=== PATIENT | female | born 1945 | race Caucasian/White ===

== ENCOUNTER → 2016-04-30 | Outpatient (CLI) | payer MEDICARE ==
[~2016-04-30] MED LIST: DIAZ5 PO; DIPH2%T PO; DOXA1 PO; GABA600T PO; LISI40TA PO; METO100T PO; NAPR220T95 PO; PROBCAP4 PO; PROT40TA PO; ZOLE5INJ INJ
--- NOTE | 2016-05-06 12:15 | RSPPFT ---
DATE OF PROCEDURE: 04/30/16 COMMENTS: Spirometry shows FVC of 2.2 at 77% of predicted, FEV1 of 1.3 at 63%, FEV1/FVC ratio is decreased. Flow is decreased at FEF 25, FEF 50, FEF 75 and FEF 25-75. There is a mild response after bronchodilator treatment. Lung volumes show residual volume is increased. TLC is normal. Diffusion capacity is mildly decreased. Flow volume loop indicates an obstructive pattern. IMPRESSION: 1. Moderately severe obstructive lung disease. 2. Mild response after bronchodilator treatment. 3. Lung volumes show presence of hyperinflation. 4. Diffusion capacity is mildly decreased.
== END ==
LOC: HRSP 10:37
PROVIDERS: ATTEND Specialist
DX: J44.9 Chronic obstructive pulmonary disease, unspecified (principal)
CPT/HCPCS: 94060; 94726; 94729

== ENCOUNTER 2016-08-22 17:17 | Inpatient (IN) | payer MEDICARE ==
[~2016-08-22] VITALS: Ht 166.4 cm; Wt 55.5 kg
[2016-08-22 17:20] VITALS: BP 178/114; PULSE 130; RESP 18; TEMP 97.8; O2SAT 97
[2016-08-22] MEDS ORDERED: ALEV220T14 PO (18:15)
[2016-08-22] MEDS ORDERED: DOXA1TAB35 PO (18:15)
[2016-08-22] MEDS ORDERED: METO100T PO (18:15)
[2016-08-22] MEDS ORDERED: UMEC1INH INH (18:15)
[2016-08-22] MEDS ORDERED: LISI40TA PO (18:15)
[2016-08-22] MEDS ORDERED: SODIUM CHLORIDE 0.9% FLUSH 10 ML FLUSH IVF PRN ×2 (18:15→18:30)
[2016-08-22] MEDS ORDERED: ZOLE5INJ IV (18:15)
[2016-08-22] MEDS ORDERED: LACTCAP8 PO (18:15)
[2016-08-22] MEDS ORDERED: GABA600T PO (18:15)
[2016-08-22] MEDS ORDERED: PROT40TA PO (18:15)
[2016-08-22 18:25] VITALS: BP 161/86; PULSE 82; RESP 20; O2SAT 98
--- NOTE | 2016-08-22 18:26 | PD ---
HPI Chief Complaint: Cardiac Complaint Time Seen by Provider: 18:18 Travel History International Travel<30 days: No Contact w/Intl Traveler<30days: No Traveled to known affect area: No History of Present Illness HPI 70-year-old female with history of Hypertension, mitral valve prolapse, presents to the ER today sent in by her physician because they have noted that her heart rate was fairly elevated. Patient denies any chest pains, shortness of breath, dizziness, or any other symptoms. There is concern of a new onset A. fib. Modifying Factors: None Associated Signs & Symptoms: Elevated heart rate Risk Factors: Hypertension PFSH Past Medical History Arthritis: Yes Heart Rhythm Problems: Yes (MVP) Cancer: Yes ( LEFT BREAST 2001) Cardiovascular Problems: Yes (MVP) High Cholesterol: Yes Chemotherapy: No Chest Pain: No Congestive Heart Failure: No Cerebrovascular Accident: No Diabetes: No Diminished Hearing: No Endocrine: No Gastrointestinal Disorders: Yes GERD: Yes Genitourinary: No Headaches: Yes Hepatitis: No Hiatal Hernia: No Hypertension: Yes Immune Disorder: No Implanted Vascular Access Dvce: Yes Medical other: Yes (GERD) Musculoskeletal: Yes 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) Psychiatric: No Reproductive: No Respiratory: No Migraines: Yes Pneumonia: Yes Radiation Therapy: Yes Seizures: No Thyroid Disease: No Ulcer: No ?: Not Past Surgical History Abdominal Surgery: Yes AICD: No Appendectomy: Yes Arteriovenous Shunt: No Body Medical Devices: SPINCAL CORD IMPLANT Cardiac Surgery: No Ear Surgery: No Endocrine Surgery: No Eye Surgery: No Genitourinary Surgery: No Gynecologic Surgery: Yes Hysterectomy: Yes Insulin Pump: No Joint Replacement: No Neurologic Surgery: Yes (SPINAL CORD IMPLANT STIMULATOR) Oral Surgery: Yes (TMJ X 2, TEETH IMPLANTS) Pacemaker: No Thoracic Surgery: Yes (left breast lumpectomy) Other Surgery: Yes (breast cancer 2001) Social History Alcohol Use: Yes (OCCAS) Tobacco Use: No Substance Use: No Allergies-Medications (Allergen,Severity, Reaction): Coded Allergies: Levaquin (Verified Allergy, Severe, Joint Pain, 11/05/15) Simvastatin (Verified Allergy, Severe, 11/05/15) Penicillin (Verified Allergy, Unknown, 11/05/15) Darvon (Verified Adverse Reaction, Mild, Nausea/Vomiting, 11/05/15) Erythromycin (Verified Adverse Reaction, Mild, UPSET STOMACH, 11/05/15) Reported Meds & Prescriptions Reported Meds & Active Scripts Active Reported Zoledronic Acid Inj (Zoledronic Acid) 5 Mg/100 Ml Inj 5 Mg IV Q365D Incruse Ellipta Inh (Umeclidinium Dailey Inh) 0.0625 Mg/Act Inh 62.5 Mcg INH DAILY Probiotic (Lactobacillus Acidophilus) 1 Cap Cap 1 Cap PO DAILY Protonix (Pantoprazole Sodium) 40 Mg Tab 40 Mg PO DAILY Aleve Arthritis (Naproxen Sodium) 220 Mg Tab 220 Mg PO BID Metoprolol Tartrate 100 Mg Tab 100 Mg PO BID Lisinopril 40 Mg Tab 40 Mg PO DAILY Gabapentin 600 Mg Tab 600 Mg PO BID Doxazosin (Doxazosin Mesylate) 2 Mg Tab 2 Mg PO DAILY Review of Systems Except as stated in HPI: all other systems reviewed are Neg Physical Exam Narrative GENERAL: Well-developed elderly white female patient currently in no acute distress. Awake and oriented 3. SKIN: Focused skin assessment warm/dry. HEAD: Atraumatic. Normocephalic. EYES: Pupils equal and round. No scleral icterus. No injection or drainage. ENT: No nasal bleeding or discharge. Mucous membranes pink and moist. NECK: Trachea midline. No JVD. CARDIOVASCULAR: Fast and irregularly irregular. RESPIRATORY: No accessory muscle use. Clear to auscultation. Breath sounds equal bilaterally. GASTROINTESTINAL: Abdomen soft, non-tender, nondistended. Hepatic and splenic margins not palpable. MUSCULOSKELETAL: No obvious deformities. No clubbing. No cyanosis. No edema. NEUROLOGICAL: Awake and alert. No obvious cranial nerve deficits. Motor grossly within normal limits. Normal speech. PSYCHIATRIC: Appropriate mood and affect; insight and judgment normal. Data Data Last Documented VS Vital Signs Date Time Temp Pulse Resp B/P Pulse Ox O2 Delivery O2 Flow Rate FiO2 08/22/16 18:33 72 20 136/83 08/22/16 18:25 Nasal Cannula 2 08/22/16 18:25 98 08/22/16 17:20 97.8 Orders Electrocardiogram (08/22/16 ) Electrocardiogram (08/22/16 18:14) Ckmb (Isoenzyme) Profile (08/22/16 18:14) Complete Blood Count With Diff (08/22/16 18:14) Comprehensive Metabolic Panel (08/22/16 18:14) D-Dimer (08/22/16 18:14) Magnesium (Mg) (08/22/16 18:14) Prothrombin Time / Inr (Pt) (08/22/16 18:14) Act Partial Throm Time (Ptt) (08/22/16 18:14) Troponin I (08/22/16 18:14) Chest, Single Ap (08/22/16 18:14) Ecg Monitoring (08/22/16 18:14) Bilateral Bp Monitoring (08/22/16 18:14) Iv Access Insert/Monitor (08/22/16 18:14) Oximetry (08/22/16 18:14) Oxygen Administration (08/22/16 18:14) Sodium Chloride 0.9% Flush (Ns Flush) (08/22/16 18:15) Blood Pressure (08/22/16 18:18) Vital Signs (08/22/16 18:18) Diltiazem Inj (Cardizem Inj) (08/22/16 18:30) Sodium Chloride 0.9% Flush (Ns Flush) (08/22/16 18:30) MDM Medical Decision Making Medical Screen Exam Complete: Yes Emergency Medical Condition: Yes Medical Record Reviewed: Yes Interpretation(s) EKG shows A. fib with RVR at a rate of 120 bpm. No signs of acute ST-T elevations or depressions. Differential Diagnosis Fast heart rate, new onset A. fibrule out metabolic abnormalities Narrative Course EKG shows A. fib, new onset with rate of 120 bpm. Cardizem initiated for rate control. Physician Communication Physician Communication Case is signed out to Dr. Clemons at 7 PM pending workup. Diagnosis Primary Impression: New onset a-fib Admitting Information Admitting Physician Requests: Admit Moisés Cruz MD Aug 22, 2016 18:26
[2016-08-22] MEDS ORDERED: DILTIAZEM HCL 25 MG/5 ML VIAL IV PUSH ONE (18:30)
[2016-08-22 18:33] VITALS: BP 136/83; PULSE 72; RESP 20
--- NOTE | 2016-08-22 18:49 | RADRPT ---
EXAM DATE/TIME: 08/22/2016 18:21 [facility] COMPARISON: No previous studies available for comparison. INDICATIONS : Chest discomfort, irregular heart rate starting today MEDICAL HISTORY : None. SURGICAL HISTORY : Spinal stimulator ENCOUNTER: Initial ACUITY: 1 day PAIN SCORE: 0/10 LOCATION: Bilateral chest FINDINGS: No infiltrate, effusion or pneumothorax. Mild increased density of the right second and third ribs ag ain noted likely related to old fractures. These are unchanged. Heart size stable, within normal limits. The thoracic aorta is mildly tortuous. Spinal stimulator mayra ds are present. CONCLUSION: No evidence of acute cardiopulmonary disease. Amrit Alvarez MD on August 22, 2016 at 18:46 Board Certified Radiologist. This report was verified electronically.
[2016-08-22 19:17] LABS: AUTOMATED NEUTROPHIL # 6.6 TH/MM3 (1.8-7.7); BASOPHIL % 0.1 % (0.0-2.0); EOSINOPHIL % 0.2 % (0.0-4.0); HEMATOCRIT 34.7 % (35.0-46.0); HEMO FLAGS DIFF FINAL; LYMPH % 4.5 % (9.0-44.0); LYMPHOCYTE # 0.4 TH/MM3 (1.0-4.8); MEAN CELL VOLUME 104.1 FL (80.0-100.0); MEAN CORPUSCULAR HEMOGLOBIN 35.9 PG (27.0-34.0); MEAN CORPUSCULAR HGB CONC 34.5 % (32.0-36.0); MONO % 10.5 % (0.0-8.0); NEUT % 84.7 % (16.0-70.0); PLATELET COUNT 303 TH/MM3 (150-450); RED BLOOD COUNT 3.34 MIL/MM3 (4.00-5.30); RED CELL DISTRIBUTION WIDTH 12.9 % (11.6-17.2); WHITE BLOOD COUNT 7.8 TH/MM3 (4.0-11.0)
[2016-08-22 19:23] VITALS: BP 187/88; PULSE 76; RESP 18; O2SAT 100
--- NOTE | 2016-08-22 19:32 | PD ---
Data Data Last Documented VS Vital Signs Date Time Temp Pulse Resp B/P Pulse Ox O2 Delivery O2 Flow Rate FiO2 08/22/16 19:23 76 18 187/88 100 Room Air 08/22/16 18:25 2 08/22/16 17:20 97.8 Orders Electrocardiogram (08/22/16 ) Electrocardiogram (08/22/16 18:14) Ckmb (Isoenzyme) Profile (08/22/16 18:14) Complete Blood Count With Diff (08/22/16 18:14) Comprehensive Metabolic Panel (08/22/16 18:14) D-Dimer (08/22/16 18:14) Magnesium (Mg) (08/22/16 18:14) Prothrombin Time / Inr (Pt) (08/22/16 18:14) Act Partial Throm Time (Ptt) (08/22/16 18:14) Troponin I (08/22/16 18:14) Chest, Single Ap (08/22/16 18:14) Ecg Monitoring (08/22/16 18:14) Bilateral Bp Monitoring (08/22/16 18:14) Iv Access Insert/Monitor (08/22/16 18:14) Oximetry (08/22/16 18:14) Oxygen Administration (08/22/16 18:14) Sodium Chloride 0.9% Flush (Ns Flush) (08/22/16 18:15) Blood Pressure (08/22/16 18:18) Vital Signs (08/22/16 18:18) Diltiazem Inj (Cardizem Inj) (08/22/16 18:30) Sodium Chloride 0.9% Flush (Ns Flush) (08/22/16 18:30) Electrocardiogram (08/22/16 ) CKMB (08/22/16 18:15) CKMB% (08/22/16 18:15) Labs Laboratory Tests Test 08/22/16 18:15 White Blood Count 7.8 TH/MM3 Red Blood Count 3.34 MIL/MM3 Hemoglobin 12.0 GM/DL Hematocrit 34.7 % Mean Corpuscular Volume 104.1 FL Mean Corpuscular Hemoglobin 35.9 PG Mean Corpuscular Hemoglobin 34.5 % Concent Red Cell Distribution Width 12.9 % Platelet Count 303 TH/MM3 Mean Platelet Volume 7.7 FL Neutrophils (%) (Auto) 84.7 % Lymphocytes (%) (Auto) 4.5 % Monocytes (%) (Auto) 10.5 % Eosinophils (%) (Auto) 0.2 % Basophils (%) (Auto) 0.1 % Neutrophils # (Auto) 6.6 TH/MM3 Lymphocytes # (Auto) 0.4 TH/MM3 Monocytes # (Auto) 0.8 TH/MM3 Eosinophils # (Auto) 0.0 TH/MM3 Basophils # (Auto) 0.0 TH/MM3 CBC Comment DIFF FINAL Differential Comment Prothrombin Time 10.1 SEC Prothromb Time International 0.9 RATIO Ratio Activated Partial 25.0 SEC Thromboplast Time D-Dimer Quantitative (PE/DVT) 0.42 MG/L FEU Sodium Level 121 MEQ/L Potassium Level 3.8 MEQ/L Chloride Level 87 MEQ/L Carbon Dioxide Level 24.3 MEQ/L Anion Gap 10 MEQ/L Blood Urea Nitrogen 23 MG/DL Creatinine 0.92 MG/DL Estimat Glomerular Filtration 61 ML/MIN Rate Random Glucose 108 MG/DL Calcium Level 8.8 MG/DL Magnesium Level 1.9 MG/DL Total Bilirubin 0.9 MG/DL Aspartate Amino Transf 24 U/L (AST/SGOT) Alanine Aminotransferase 33 U/L (ALT/SGPT) Alkaline Phosphatase 67 U/L Total Creatine Kinase 162 U/L Troponin I 0.02 NG/ML Total Protein 6.8 GM/DL Albumin 4.0 GM/DL [facility] Supervised Visit with HEBER: No Narrative Course Patient signed out to me by previous provider. Please see associated no for further details. In short patient is a 70-year-old female with history of HTN, MVP here because she had incidental onset of new onset A. fib RVR while noted by her PCP. Patient apparently has not had any chest pain, shortness of breath or lightheadedness but given her RVR was sent to the emergency department for evaluation. Patient arrived with A. fib with RVR in the 120s. Blood pressure elevated in the 170s but normalized upon recheck. I note to me pending laboratory results and heart rate control. Patient was given 15 mg diltiazem IV push by previous provider. Chest x-ray was unremarkable. CBC, CMP, magnesium, d-dimer, CK-MB, troponin, coags notable for sodium of 121. Otherwise unremarkable. Patient is not on any diuretics that would cause her hyponatremia, chest x-ray is unremarkable without any mass. Given her severe hyponatremia will admit for further evaluation. After diltiazem, patient's heart rate was in the 70s to 80s. An EKG was repeated and patient does remain in A. fib but now rate controlled. Diagnosis Primary Impression: New onset a-fib Additional Impressions: Atrial fibrillation with RVR Hyponatremia Admitting Information Admitting Physician Requests: Admit Yaz Garcia MD Aug 22, 2016 19:32
[2016-08-22 19:46] LABS: INTERNATIONAL NORMALIZED RATIO 0.9 RATIO; PROTHROMBIN TIME - PATIENT 10.1 SEC (9.8-11.6)
[2016-08-22 19:48] LABS: ALKALINE PHOSPHATASE 67 U/L (45-117); ALT (GPT) 33 U/L (10-53); ANION GAP 10 MEQ/L (5-15); AST (GOT) 24 U/L (15-37); BICARBONATE 24.3 MEQ/L (21.0-32.0); BLOOD UREA NITROGEN 23 MG/DL (7-18); CHLORIDE 87 MEQ/L (98-107); CREATINE KINASE 162 U/L (26-192); GLOMERULAR FILTRATION RATE 61 ML/MIN (>89); MAGNESIUM 1.9 MG/DL (1.5-2.5); POTASSIUM 3.8 MEQ/L (3.5-5.1); TOTAL BILIRUBIN ADULT 0.9 MG/DL (0.2-1.0)
[2016-08-22 20:03] LABS: SODIUM (NA) 121 MEQ/L (136-145)
[2016-08-22 20:21] LABS: CKMB 11.6 NG/ML (0.5-3.6)
[2016-08-22 21:40] VITALS: BP 168/110; PULSE 86; RESP 16; TEMP 97.9; O2SAT 100
--- NOTE | 2016-08-22 21:44 | HHI.HP ---
HPI Service CP Hospitalists Primary Care Physician Keyla Meadows MD Admission Diagnosis severe hyponatremia, new onset A. fib with RVR Chief Complaint: new onset atrail fib,hyponatremia Travel History International Travel<30 Days: No Contact w/Intl Traveler <30 Da: No Traveled to Known Affected Are: No History of Present Illness 70 y/o white female with remote history breast cancer and difficult to control hypertension who was at pain clinic and was found to have high heart rate ,ekg was done and showed rapid atrial fib ,PCP instructed patient to come to hospital ,denies any symptoms but told me they took BP readings and BP was low for her. In er given IV cardiazem bolus with improvement in heart rate on lab work found to have low sodium will admit for further evaluation. Review of Systems Cardiovascular: COMPLAINS OF: Palpitations Past Family Social History Past Medical History Heart Rhythm Problems: Yes (MVP) Cancer: Yes ( LEFT BREAST 2001) Cardiovascular Problems: Yes (MVP) High Cholesterol: Yes Chemotherapy: No Chest Pain: No Congestive Heart Failure: No Cerebrovascular Accident: No Diabetes: No Diminished Hearing: No Endocrine: No Gastrointestinal Disorders: Yes GERD: Yes Genitourinary: No Headaches: Yes Hepatitis: No Hiatal Hernia: No Hypertension: Yes Immune Disorder: No Implanted Vascular Access Dvce: Yes Medical other: Yes (GERD) Musculoskeletal: Yes 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) Psychiatric: No Reproductive: No Respiratory: No Migraines: Yes Pneumonia: Yes Radiation Therap Past Surgical History Abdominal Surgery: Yes AICD: No Appendectomy: Yes Arteriovenous Shunt: No Body Medical Devices: SPINCAL CORD IMPLANT Cardiac Surgery: No Ear Surgery: No Endocrine Surgery: No Eye Surgery: No Genitourinary Surgery: No Gynecologic Surgery: Yes Hysterectomy: Yes Insulin Pump: No Joint Replacement: No Neurologic Surgery: Yes (SPINAL CORD IMPLANT STIMULATOR) Oral Surgery: Yes (TMJ X 2, TEETH IMPLANTS) Pacemaker: No Thoracic Surgery: Yes (left breast lumpectomy) Other Surgery: Yes (breast cancer 2001) Reported Medications Zoledronic Acid Inj (Zoledronic Acid) 5 Mg/100 Ml Inj 5 Mg IV Q365D Incruse Ellipta Inh (Umeclidinium Tavares Inh) 0.0625 Mg/Act Inh 62.5 Mcg INH DAILY Probiotic (Lactobacillus Acidophilus) 1 Cap Cap 1 Cap PO DAILY Protonix (Pantoprazole Sodium) 40 Mg Tab 40 Mg PO DAILY Aleve Arthritis (Naproxen Sodium) 220 Mg Tab 220 Mg PO BID Metoprolol Tartrate 100 Mg Tab 100 Mg PO BID Lisinopril 40 Mg Tab 40 Mg PO DAILY Gabapentin 600 Mg Tab 600 Mg PO BID Doxazosin (Doxazosin Mesylate) 2 Mg Tab 2 Mg PO DAILY Allergies: Coded Allergies: Levaquin (Verified Allergy, Severe, Joint Pain, 11/05/15) Simvastatin (Verified Allergy, Severe, 11/05/15) Penicillin (Verified Allergy, Unknown, 11/05/15) Darvon (Verified Adverse Reaction, Mild, Nausea/Vomiting, 11/05/15) Erythromycin (Verified Adverse Reaction, Mild, UPSET STOMACH, 11/05/15) Social History NS,ND Physical Exam Vital Signs Vital Signs Date Time Temp Pulse Resp B/P Pulse Ox O2 Delivery O2 Flow Rate FiO2 08/22/16 19:23 76 18 187/88 100 Room Air 08/22/16 18:33 72 20 136/83 08/22/16 18:25 Nasal Cannula 2 08/22/16 18:25 82 20 161/86 98 08/22/16 17:20 97.8 130 18 178/114 97 Room Air Physical Exam GENERAL: This is a well-nourished, well-developed patient, in no apparent distress. SKIN: No rashes, ecchymoses or lesions. Cool and dry. HEAD: Atraumatic. Normocephalic. No temporal or scalp tenderness. EYES: Pupils equal round and reactive. Extraocular motions intact. No scleral icterus. No injection or drainage. ENT: Nose without bleeding, purulent drainage or septal hematoma. Throat without erythema, tonsillar hypertrophy or exudate. Uvula midline. Airway patent. NECK: Trachea midline. No JVD or lymphadenopathy. Supple, nontender, no meningeal signs. CARDIOVASCULAR: Regular rate and rhythm without murmurs, gallops, or rubs. RESPIRATORY: Clear to auscultation. Breath sounds equal bilaterally. No wheezes , rales, or rhonchi. GASTROINTESTINAL: Abdomen soft, non-tender, nondistended. No hepato-splenomegaly , or palpable masses. No guarding. MUSCULOSKELETAL: Extremities without clubbing, cyanosis, or edema. No joint tenderness, effusion, or edema noted. No calf tenderness. Negative Homans sign bilaterally. NEUROLOGICAL: Awake and alert. Cranial nerves II through XII intact. Motor and sensory grossly within normal limits. Five out of 5 muscle strength in all muscle groups. Normal speech. Laboratory Laboratory Tests Test 08/22/16 18:15 White Blood Count 7.8 Red Blood Count 3.34 Hemoglobin 12.0 Hematocrit 34.7 Mean Corpuscular Volume 104.1 Mean Corpuscular Hemoglobin 35.9 Mean Corpuscular Hemoglobin 34.5 Concent Red Cell Distribution Width 12.9 Platelet Count 303 Mean Platelet Volume 7.7 Neutrophils (%) (Auto) 84.7 Lymphocytes (%) (Auto) 4.5 Monocytes (%) (Auto) 10.5 Eosinophils (%) (Auto) 0.2 Basophils (%) (Auto) 0.1 Neutrophils # (Auto) 6.6 Lymphocytes # (Auto) 0.4 Monocytes # (Auto) 0.8 Eosinophils # (Auto) 0.0 Basophils # (Auto) 0.0 CBC Comment DIFF FINAL Differential Comment Prothrombin Time 10.1 Prothromb Time International 0.9 Ratio Activated Partial 25.0 Thromboplast Time D-Dimer Quantitative (PE/DVT) 0.42 Sodium Level 121 Potassium Level 3.8 Chloride Level 87 Carbon Dioxide Level 24.3 Anion Gap 10 Blood Urea Nitrogen 23 Creatinine 0.92 Estimat Glomerular Filtration 61 Rate Random Glucose 108 Calcium Level 8.8 Magnesium Level 1.9 Total Bilirubin 0.9 Aspartate Amino Transf 24 (AST/SGOT) Alanine Aminotransferase 33 (ALT/SGPT) Alkaline Phosphatase 67 Total Creatine Kinase 162 Creatine Kinase MB 11.6 Troponin I 0.02 Total Protein 6.8 Albumin 4.0 Result Diagram: 08/22/165 08/22/161814 Imaging Last 24 hours Impressions Chest X-Ray 08/22/161813 Signed Impressions: Service Date/Time: Monday, August 22, 2016 18:21 - CONCLUSION: No evidence of acute cardiopulmonary disease. Amrit Alvarez MD Course in er given iv cardiazem Assessment and Plan Problem List: (1) New onset a-fib Status: Acute Plan: heart rate improved will continue to monitor obtain 2d echo cardiac evaluation continue metoprolol (2) Hyponatremia Status: Acute Plan: will recheck no symptoms no evidence dehydration will need to review old records to see previous sodium levels will hold on any IV fluid as patient has hypertension Assessment and Plan further plan as case develops Code Status full Discussed Condition With patient Physician Certification 2 Midnight Certification Type: Admission for Inpatient Services Order for Inpatient Services The services are ordered in accordance with Medicare regulations or non- Medicare payer requirements, as applicable. In the case of services not specified as inpatient-only, they are appropriately provided as inpatient services in accordance with the 2-midnight benchmark. Estimated LOS (days): 3 3 days is the estimated time the patient will need to remain in the hospital, assuming treatment plan goals are met and no additional complications. Post-Hospital Plan: Not yet determined [place] Aguirre MD Aug 22, 2016 21:44
[2016-08-22] MEDS ORDERED: BISACODYL 10 MG SUPP RECTAL PRN (21:45)
[2016-08-22] MEDS ORDERED: LACTULOSE SYRUP 20 GM/30 ML CUP PO PRN (21:45)
[2016-08-22] MEDS ORDERED: SENNOSIDES 8.6 MG TAB PO PRN (21:45)
[2016-08-22] MEDS ORDERED: NALOXONE HCL 0.4 MG/ML AMP IV PRN (21:45)
[2016-08-22] MEDS ORDERED: MAGNESIUM HYDROXIDE SUSP 30 ML CUP PO PRN (21:45)
[2016-08-22] MEDS ORDERED: SODIUM CHLORIDE 0.9% FLUSH 10 ML FLUSH IV FLUSH PRN (21:45)
[2016-08-22 22:00] VITALS: PULSE 86
[2016-08-22] MEDS ORDERED: ENOXAPARIN SODIUM 40 MG/0.4 ML SYRINGE SQ SCH (22:00)
[2016-08-23] VITALS (12 sets, daily range): BP systolic 100–174; BP diastolic 59–110; PULSE 88–150; RESP 16–22; TEMP 97.4–98.1; O2SAT 94–100
[2016-08-23] MEDS ORDERED: cloNIDine HCL 0.1 MG TAB PO PRN (00:45)
[2016-08-23 06:34] LABS: BICARBONATE 23.4 MEQ/L (21.0-32.0)
[2016-08-23] MEDS: DOCUSATE SODIUM 50 MG/SENNA 8.6 MG TAB PO SCH ×2 (08:12→21:00)
[2016-08-23] MEDS: GABAPENTIN 300 MG CAP PO SCH ×2 (08:12→21:37)
[2016-08-23] MEDS: LACTOBACILLUS ACIDOPHILUS TAB PO SCH (08:13)
[2016-08-23] MEDS: METOPROLOL TARTRATE 100 MG TAB PO SCH ×2 (08:13→21:37)
[2016-08-23] MEDS: SODIUM CHLORIDE 0.9% FLUSH 10 ML FLUSH IV FLUSH SCH ×2 (08:20→21:00)
[2016-08-23] MEDS ORDERED: LISINOPRIL 20 MG TAB PO SCH (09:00)
[2016-08-23] MEDS ORDERED: DILTIAZEM INJ 125 MG in SODIUM CHLORIDE 0.9% INJ 100 ML IV PRN (09:00)
[2016-08-23] MEDS ORDERED: INCRUSE ELLIPTA INH SCH (09:00)
[2016-08-23] MEDS ORDERED: DOXAZOSIN MESYLATE 2 MG TAB PO SCH (09:00)
--- NOTE | 2016-08-23 10:21 | HHI.PR ---
Subjective Remarks feels ok. no cp or sob Objective Vitals heart irreg lung cta abd s/nt ext no edema Vital Signs Date Time Temp Pulse Resp B/P Pulse Ox O2 Delivery O2 Flow Rate FiO2 08/23/16 04:00 97.4 90 20 149/69 97 08/23/16 00:00 98.1 110 16 160/110 99 08/22/16 22:46 Room Air 08/22/16 22:00 86 08/22/16 21:40 97.9 86 16 168/110 100 08/22/16 19:23 76 18 187/88 100 Room Air 08/22/16 18:33 72 20 136/83 08/22/16 18:25 Nasal Cannula 2 08/22/16 18:25 82 20 161/86 98 08/22/16 17:20 97.8 130 18 178/114 97 Room Air 08/22/16 08/22/16 08/23/16 15:00 23:00 07:00 Intake Total 580 ml Balance 580 ml Intake Oral 580 ml # Voids 1 2 # Bowel Movements 0 Result Diagram: 08/22/16 1815 08/23/16 0430 Imaging Last 24 hours Impressions Chest X-Ray 08/22/16 1814 Signed Impressions: Service Date/Time: Monday, August 22, 2016 18:21 - CONCLUSION: No evidence of acute cardiopulmonary disease. Amrit Alvarez MD A/P Problem List: (1) New onset a-fib Status: Acute Plan: Pt has longstanding htn recently diagnosed with copd. says her fev1 was 45 and improved with rx to 60s Was at pain clinic where she gets ELIF for Spinal stenosis new onset afib/rvr hyponatremia noted her home dose lopressor was resumed at 100mg po bid still breaking through this morning prn cardizem gtt ordered cardiology consult was ordered and will await reccs as we will likely need to overhaul her med list for htn/afib i discussed her risk factors with her and anticoagulation echo pending tsh check urine na, urine osmol, serum osmols. recheck serum na (2) Hyponatremia Status: Acute Plan: above (3) COPD (chronic obstructive pulmonary disease) Status: Chronic Plan: cont home inhalers (4) Spinal stenosis Status: Chronic (5) HTN (hypertension) Status: Chronic Billy Hough MD Aug 23, 2016 10:21
[2016-08-23] MEDS ORDERED: SODIUM CHLOR 0.9% 1000 ML INJ 1,000 ML IV SCH (11:00)
[2016-08-23] MEDS: DILTIAZEM HCL 30 MG TAB PO SCH ×3 (13:07→21:37)
--- NOTE | 2016-08-23 13:35 | EKG ---
Date Performed: 08/22/2016 Time Performed: 19:43:54 PTAGE: 70 years EKG: ATRIAL FIBRILLATION Compared to previous tracing, ventricular response to the atrial fibril lation is slower ABNORMAL RHYTHM ECG PREVIOUS TRACING : 08/22/2016 17.32 DOCTOR: Andres Whitehead Interpretating Date/Time 08/23/2016 13:34:28
--- NOTE | 2016-08-23 13:35 | EKG ---
Date Performed: 08/22/2016 Time Performed: 17:32:29 PTAGE: 70 years EKG: ATRIAL FIBRILLATION WITH RAPID VENTRICULAR RESPONSE NONSPECIFIC ST & T-WAVE ABNORMALITY Com pared to previous tracing, the atrial fibrillation with rapid ventricular response has replaced Sinus rhythm . Nonspecific ST changes are new. ABNORMAL RHYTHM ECG PREVIOUS TRACING : 02/09/2012 10.13 DOCTOR: Andres Whitehead Interpretating Date/Time 08/23/2016 13:34:19
--- NOTE | 2016-08-23 15:23 | MB ---
cc: JORDANA ARMENDARIZ MD DATE OF CONSULTATION: 08/23/2016. REASON FOR CONSULTATION: New onset atrial fibrillation. HISTORY OF PRESENT ILLNESS The patient is a very pleasant 70-year-old woman with no prior cardiac history who was sent from her primary care physician's office for tachycardia. She was found to be in an essentially asymptomatic rapid atrial fibrillation. She was admitted, started on the Cardizem drip, and I was consulted for workup. Currently the patient is asymptomatic denying chest pain, shortness of breath, lightheadedness, dizziness, palpitations. She does get occasional headaches when her blood pressure is low. PAST MEDICAL HISTORY: 1. Breast cancer. 2. Remote history of ventricular tachycardia in the early per patient, details unclear. 3. Remote history of mitral valve prolapse, details unclear. 4. Hypertension. CURRENT MEDICATIONS: 1. Cardura. 2. Neurontin 7 milligrams twice a day. 3. Lopressor 100 milligrams twice a day. 4. Prinivil 40 milligrams daily. ALLERGIES: 1. DARVON. 2. ERYTHROMYCIN. 3. LEVAQUIN. 4. PENICILLIN. 5. SIMVASTATIN. PHYSICAL EXAMINATION: VITAL SIGNS: Afebrile, pulse 88, respiratory rate 20, blood pressure 164/100 satting 99% on room air. GENERAL: A pleasant well-appearing woman in no distress. NECK: No jugular venous distention. LUNGS: Clear to auscultation bilaterally. CARDIOVASCULAR: Irregularly irregular rhythm with a mildly rapid rate. No significant murmurs appreciated. ABDOMEN: Benign. EXTREMITIES: No edema. LABORATORY DATA: Sodium 126 up from 121, potassium 4.0, chloride 92, bicarb 23.4, BUN 20, creatinine 0.81, glucose 106. Troponin is negative x1. EKGS: EKG shows atrial fibrillation at rate of 85 with minor nonspecific S-T changes. IMPRESSION: New onset atrial fibrillation. This patient is a [id number] 3 for age, hypertension and gender, and thus will require anticoagulation. I discussed this with her and she opts to start Eliquis 5 milligrams twice a day. Her rates are currently reasonably controlled, though I will change her Cardura to some short-acting Cardizem and make sure she can stay off the Cardizem drip with good rates. An echocardiogram is pending. If she maintains good rate control and her echocardiogram is unrevealing, she can likely be discharged home tomorrow. Thank you again for the opportunity to participate in this patient's care. MD CARLITOS Mendez/SHILO /11:04 AM /3:17 PM
[2016-08-23] MEDS: IBUPROFEN 400 MG TAB PO PRN (15:38)
[2016-08-23] MEDS ORDERED: diphenhydrAMINE HCL 25 MG CAP PO PRN (18:30)
[2016-08-23] MEDS: APIXABAN 5 MG TABLET PO SCH (21:37)
[2016-08-24] VITALS (7 sets, daily range): BP systolic 124–152; BP diastolic 68–98; PULSE 79–114; RESP 16–20; TEMP 97.5–98.4; O2SAT 92–100
[2016-08-24] MEDS: SODIUM CHLORIDE 0.9% FLUSH 10 ML FLUSH IV FLUSH SCH ×2 (09:00→20:43)
[2016-08-24] MEDS: DOCUSATE SODIUM 50 MG/SENNA 8.6 MG TAB PO SCH ×2 (09:00→20:43)
--- NOTE | 2016-08-24 10:05 | HHI.PR ---
Subjective Remarks eager for d/c feels much better. Objective Vitals heart irreg lung cta abd /snt ext no edema Vital Signs Date Time Temp Pulse Resp B/P Pulse Ox O2 Delivery O2 Flow Rate FiO2 08/24/16 08:00 97.7 87 20 152/98 100 08/24/16 05:00 97.8 98 18 138/82 100 08/24/16 00:00 97.8 98 18 124/68 99 08/23/16 20:44 95 08/23/16 20:00 97.9 110 22 162/78 100 08/23/16 19:42 Room Air 08/23/16 16:00 97.4 92 20 174/98 100 08/23/16 15:00 98 08/23/16 12:00 97.4 99 20 122/59 94 Automatic Cuff 08/23/16 10:30 99 104/79 08/23/16 10:15 89 100/69 08/23/16 08/23/16 08/24/16 14:59 22:59 06:59 Intake Total 710 ml 100 ml Balance 710 ml 100 ml Intake Oral 480 ml 100 ml IV Total 230 ml # Voids 5 2 1 # Bowel Movements 0 3 1 Result Diagram: 08/22/16181408/23/16 0430 Imaging Last 24 hours Impressions Chest X-Ray 08/22/161813 Signed Impressions: Service Date/Time: Monday, August 22, 2016 18:21 - CONCLUSION: No evidence of acute cardiopulmonary disease. Amrit Alvarez MD A/P Problem List: (1) New onset a-fib Status: Acute Plan: Pt has longstanding htn recently diagnosed with copd. says her fev1 was 45 and improved with rx to 60s Was at pain clinic where she gets ELIF for Spinal stenosis new onset afib/rvr hyponatremia noted her home dose lopressor was resumed at 100mg po bid diltiazem and eliquis noted monitor control this AM and if stable later today and ok with cardiology then d/c with f/u repeat na pending. echo pending tsh (2) Hyponatremia Status: Acute Plan: above (3) COPD (chronic obstructive pulmonary disease) Status: Chronic Plan: cont home inhalers (4) Spinal stenosis Status: Chronic (5) HTN (hypertension) Status: Chronic Billy Hough MD Aug 24, 2016 10:04
[2016-08-24] MEDS: LACTOBACILLUS ACIDOPHILUS TAB PO SCH (10:10)
[2016-08-24] MEDS: GABAPENTIN 300 MG CAP PO SCH ×2 (10:10→20:43)
[2016-08-24] MEDS: APIXABAN 5 MG TABLET PO SCH ×2 (10:10→20:43)
[2016-08-24] MEDS: DILTIAZEM HCL 30 MG TAB PO SCH ×2 (10:11→14:31)
[2016-08-24] MEDS: LISINOPRIL 20 MG TAB PO SCH (10:11)
[2016-08-24] MEDS: METOPROLOL TARTRATE 100 MG TAB PO SCH ×2 (10:11→20:43)
[2016-08-24 10:54] LABS: BICARBONATE 25.1 MEQ/L (21.0-32.0); POTASSIUM 3.9 MEQ/L (3.5-5.1)
[2016-08-24 11:20] LABS: FREE T4 0.95 NG/DL (0.76-1.46)
[2016-08-24] MEDS ORDERED: CARD120C4 PO (13:37)
[2016-08-24] MEDS ORDERED: LISI-515 PO (13:37)
[2016-08-24] MEDS ORDERED: APIX5TAB PO (13:37)
--- NOTE | 2016-08-24 13:37 | HHI.DCPOC ---
Discharge Care Plan Diagnosis: (1) Atrial fibrillation with RVR (2) Hyponatremia (3) COPD (chronic obstructive pulmonary disease) (4) Spinal stenosis (5) HTN (hypertension) Goals to Promote Your Health * To prevent worsening of your condition and complications * To maintain your health at the optimal level Directions to Meet Your Goals Take your medications as prescribed Follow your dietary instruction Follow activity as directed Keep your appointments as scheduled Take your immunizations and boosters as scheduled If your symptoms worsen call your PCP, if no PCP go to Urgent Care Center or Emergency Room Smoking is Dangerous to Your Health. Avoid second hand smoke Call the 24-hour hour crisis hotline for domestic abuse at Billy Hough MD Aug 24, 2016 13:37
--- NOTE | 2016-08-24 16:09 | PD.CARD.PN ---
Subjective Subjective Remarks Pt feels well but had some brief/mild rapid heart rates today and she is uncomfortable going home Objective Medications Administered Medications Medications (Trade) Dose Ordered Sig/Lucia Route PRN Reason Start Time Stop Time Status Last Admin Dose Admin Gabapentin (Neurontin) 600 mg BID PO 08/23/16 09:00 08/24/16 10:10 Lactobacillus Acidophilus (Lactinex) 1 tab DAILY PO 08/23/16 09:00 08/24/16 10:10 Metoprolol Tartrate (Lopressor) 100 mg BID PO 08/23/16 09:00 08/24/16 10:11 Sodium Chloride (NS Flush) 2 ml BID IV FLUSH 08/23/16 09:00 08/24/16 09:00 Senna/Docusate Sodium (Vanessa-Colace) 1 tab BID PO 08/23/16 09:00 08/23/16 08:12 Lisinopril (Prinivil) 20 mg DAILY PO 08/24/16 09:00 08/24/16 10:11 Apixaban (Eliquis) 5 mg BID PO 08/23/16 21:00 08/24/16 10:10 Ibuprofen (Motrin) 400 mg Q6H PRN PO HEADACHE 08/23/16 11:15 08/23/16 15:38 Vital Signs / I&O Vital Signs Date Time Temp Pulse Resp B/P Pulse Ox O2 Delivery O2 Flow Rate FiO2 08/24/16 12:00 97.5 79 20 126/84 99 08/24/16 08:00 105 08/24/16 08:00 97.7 87 20 152/98 100 08/24/16 08:00 105 08/24/16 07:15 Room Air 08/24/16 05:00 97.8 98 18 138/82 100 08/24/16 00:00 97.8 98 18 124/68 99 08/23/16 20:44 95 08/23/16 20:00 97.9 110 22 162/78 100 08/23/16 19:42 Room Air I/O 08/23/16 08/23/16 08/23/16 08/24/16 08/24/16 08/24/16 07:00 15:00 23:00 07:00 15:00 23:00 Intake Total 580 ml 710 ml 100 ml 0 ml Balance 580 ml 710 ml 100 ml 0 ml Intake Oral 580 ml 480 ml 100 ml IV Total 230 ml 0 ml # Voids 2 5 2 1 # Bowel Movements 0 0 3 1 Physical Exam GENERAL: This is a well-nourished, well-developed patient, in no apparent distress. CARDIOVASCULAR: Regular rate and irregular rhythm without murmurs, gallops, or rubs. RESPIRATORY: Clear to auscultation. Breath sounds equal bilaterally. No wheezes , rales, or rhonchi. GASTROINTESTINAL: Abdomen soft, non-tender, nondistended. Normal, active bowel sounds MUSCULOSKELETAL: Extremities without clubbing, cyanosis, or edema. NEURO: Alert & Oriented x4 to person, place, time, situation. Moves all ext x4 Laboratory Laboratory Tests Test 08/24/16 07:20 Sodium Level 130 MEQ/L Potassium Level 3.9 MEQ/L Chloride Level 96 MEQ/L Carbon Dioxide Level 25.1 MEQ/L Anion Gap 9 MEQ/L Blood Urea Nitrogen 20 MG/DL Creatinine 0.86 MG/DL Estimat Glomerular Filtration 66 ML/MIN Rate Random Glucose 116 MG/DL Calcium Level 9.1 MG/DL Vitamin B12 Level 328 PG/ML Free Thyroxine 0.95 NG/DL Thyroid Stimulating Hormone 1.620 uIU/ML 3rd Gen Imaging Last Impressions Chest X-Ray 08/22/164 Signed Impressions: Service Date/Time: Monday, August 22, 2016 18:21 - CONCLUSION: No evidence of acute cardiopulmonary disease. Amrit Alvarez MD Assessment and Plan Problem List: (1) New onset a-fib Assessment and Plan: on eliquis, changed cardizem to long acting and will increase dose, first dose now. echo pending. Assessment and Plan If good rates on increased cardizem and no major findings by echo, ok to d/c home in the am and she can f/u with me in the office. Andres Whitehead MD Aug 24, 2016 16:09
[2016-08-24] MEDS ORDERED: CARD240C6 PO (16:11)
[2016-08-24] MEDS ORDERED: DILTIAZEM-CD 240 MG CAP ER PO SCH (16:15)
--- NOTE | 2016-08-24 18:59 | ECHRPT ---
Indication: Persistent atrial fibrillation CONCLUSIONS Normal left ventricular size. Wall thickness is normal. The left ventricular systolic function is low normal with an estimated ejection fraction in the rang e of 50- 55%. The left atrial size is mildly dilated. Mild to moderate mitral valve regurgitation directed posteriorly. Anterior mitral valve leaflet prolapse. There is moderate tricuspid valve regurgitation. There is estimated mild pulmonary hypertension present (46 mmHg). BP: 149 / 69 HR: 90 Rhythm: Atrial fibrillation MEASUREMENTS (Male / Female) Normal Values Technical Quality:Good 2D ECHO LV Diastolic Diameter PLAX 4.6 cm 4.2 - 5.9 / 3.9 - 5.3 cm LV Systolic Diameter PLAX 3.6 cm IVS Diastolic Thickness 1.0 cm 0.6 - 1.0 / 0.6 - 0.9 cm LVPW Diastolic Thickness 0.6 cm 0.6 - 1.0 / 0.6 - 0.9 cm LV Relative Wall Thickness 0.4 RV Internal Dim ED PLAX 1.8 cm LA Systolic Diameter LX 3.5 cm 3.0 - 4.0 / 2.7 - 3.8 cm LA Volume Index 47.6 cm/m 16 - 28 cm/m M-MODE Aortic Root Diameter MM 3.2 cm AV Cusp Separation MM 2.1 cm DOPPLER Mitral E Point Velocity 75.5 cm/s Mitral A Point Velocity 30.6 cm/s Mitral E to A Ratio 2.5 TR Peak Velocity 319.0 cm/s TR Peak Gradient 40.7 mmHg FINDINGS LEFT VENTRICLE Normal left ventricular size. Wall thickness is normal. The left ventricular systolic function is low normal with an estimated ejection fraction in the rang e of 50- 55%. RIGHT VENTRICLE Normal right ventricular size and systolic function. LEFT ATRIUM The left atrial size is mildly dilated. RIGHT ATRIUM The right atrial size is normal. ATRIAL SEPTUM Normal atrial septal thickness without atrial level shunting by limited color doppler interrogation. AORTA The aortic root and proximal ascending aorta are normal in size on limited imaging. MITRAL VALVE Mild to moderate mitral valve regurgitation. Anterior mitral valve leaflet prolapse. AORTIC VALVE Trileaflet aortic valve. No aortic valve stenosis or regurgitation. TRICUSPID VALVE There is moderate tricuspid valve regurgitation. There is estimated mild pulmonary hypertension present (46 mmHg). PULMONARY VALVE The pulmonary valve is not well visualized. VESSELS The inferior vena cava is normal in size. PERICARDIUM No pericardial effusion. Andres Whitehead MD (Electronically Signed) Final Date:24 August 2016 18:59
[2016-08-25] VITALS: BP 111/65; PULSE 45; RESP 18; TEMP 97.5; O2SAT 99
[2016-08-25] MEDS: IBUPROFEN 400 MG TAB PO PRN ×2 (01:14→21:54)
[2016-08-25 04:00] VITALS: BP 133/66; PULSE 57; RESP 20; TEMP 97.6; O2SAT 99
[2016-08-25 08:00] VITALS: BP 106/62; PULSE 101; RESP 18; TEMP 97.8; O2SAT 98
[2016-08-25] MEDS: DOCUSATE SODIUM 50 MG/SENNA 8.6 MG TAB PO SCH ×2 (08:39→21:00)
[2016-08-25] MEDS: LACTOBACILLUS ACIDOPHILUS TAB PO SCH (08:48)
[2016-08-25] MEDS: LISINOPRIL 20 MG TAB PO SCH (08:52)
[2016-08-25] MEDS: APIXABAN 5 MG TABLET PO SCH ×2 (08:52→21:54)
[2016-08-25] MEDS: METOPROLOL TARTRATE 100 MG TAB PO SCH ×2 (08:52→21:54)
[2016-08-25] MEDS: GABAPENTIN 300 MG CAP PO SCH ×2 (08:54→21:54)
[2016-08-25] MEDS: SODIUM CHLORIDE 0.9% FLUSH 10 ML FLUSH IV FLUSH SCH ×2 (08:54→21:55)
--- NOTE | 2016-08-25 10:02 | PD.CARD.PN ---
Subjective Subjective Remarks Pt feels well, no lightheadedness or diziness; evidence of tachy kristofer though with 3.5 second pauses last night (apparently some while awake) and daytime tachy. Objective Medications Administered Medications Medications (Trade) Dose Ordered Sig/Lucia Route PRN Reason Start Time Stop Time Status Last Admin Dose Admin Gabapentin (Neurontin) 600 mg BID PO 08/23/16 09:00 08/25/16 08:54 Lactobacillus Acidophilus (Lactinex) 1 tab DAILY PO 08/23/16 09:00 08/25/16 08:48 Metoprolol Tartrate (Lopressor) 100 mg BID PO 08/23/16 09:00 08/25/16 08:52 Sodium Chloride (NS Flush) 2 ml BID IV FLUSH 08/23/16 09:00 08/25/16 08:54 Senna/Docusate Sodium (Vanessa-Colace) 1 tab BID PO 08/23/16 09:00 08/23/16 08:12 Lisinopril (Prinivil) 20 mg DAILY PO 08/24/16 09:00 08/25/16 08:52 Apixaban (Eliquis) 5 mg BID PO 08/23/16 21:00 08/25/16 08:52 Ibuprofen (Motrin) 400 mg Q6H PRN PO HEADACHE 08/23/16 11:15 08/25/16 01:14 Diphenhydramine HCl (Benadryl) 25 mg BID PRN PO CONGESTION 08/23/16 18:30 08/25/16 01:14 Vital Signs / I&O Vital Signs Date Time Temp Pulse Resp B/P Pulse Ox O2 Delivery O2 Flow Rate FiO2 08/25/16 08:00 97.8 101 18 106/62 98 08/25/16 04:00 97.6 57 20 133/66 99 08/25/16 00:00 97.5 45 18 111/65 99 111/65 08/24/16 20:00 98.4 93 16 125/73 97 08/24/16 19:15 82 08/24/16 19:15 Room Air 08/24/16 16:00 97.7 114 20 140/74 92 08/24/16 12:00 97.5 79 20 126/84 99 I/O 08/24/16 08/24/16 08/24/16 08/25/1617/17 7/17/17 07:00 15:00 23:00 07:00 15:00 23:00 Intake Total 240 ml 960 ml 240 ml Balance 240 ml 960 ml 240 ml Intake Oral 240 ml 960 ml 240 ml IV Total 0 ml # Voids 1 5 4 2 # Bowel Movements 1 1 Physical Exam GENERAL: This is a well-nourished, well-developed patient, in no apparent distress. CARDIOVASCULAR: Regular rate and irregular rhythm without murmurs, gallops, or rubs. RESPIRATORY: Clear to auscultation. Breath sounds equal bilaterally. No wheezes , rales, or rhonchi. GASTROINTESTINAL: Abdomen soft, non-tender, nondistended. Normal, active bowel sounds MUSCULOSKELETAL: Extremities without clubbing, cyanosis, or edema. NEURO: Alert & Oriented x4 to person, place, time, situation. Moves all ext x4 Imaging Last Impressions Chest X-Ray 08/22/164 Signed Impressions: Service Date/Time: Monday, August 22, 2016 18:21 - CONCLUSION: No evidence of acute cardiopulmonary disease. Amrit Alvarez MD Assessment and Plan Problem List: (1) New onset a-fib Assessment and Plan: on eliquis; decreased cardizem to 180mg daily; asked Dr. Akins to see her to consider ablation given Andres Al MD Aug 25, 2016 10:02
[2016-08-25] MEDS: DILTIAZEM-CD 180 MG CAP ER PO SCH (10:11)
[2016-08-25 12:00] VITALS: BP 171/72; PULSE 62; RESP 18; TEMP 98.8; O2SAT 100
[2016-08-25 16:00] VITALS: BP 130/78; PULSE 58; PULSE 61; RESP 18; TEMP 98.4; O2SAT 98
--- NOTE | 2016-08-25 17:23 | PD.PN.STU ---
Subjective Remarks Patient requested to Dr. Whitehead last evening to stay for monitoring for new cardizem dosing Began 24hr release 180mg cardizem PO last evening Progressively more bradycardic throughout the evening, rate in 30's, 2.5 second pauses on telemetry Seen by Dr. Whitehead again this morning, consulted Dr. Akins to evaluate afib for possible ablation Patient eager for Tashi opinion, unsure as to when ablation would occur if indicated Objective Vitals Vital Signs Date Time Temp Pulse Resp B/P Pulse Ox O2 Delivery O2 Flow Rate FiO2 08/25/16 12:00 98.8 62 18 171/72 100 08/25/16 08:00 97.8 101 18 106/62 98 08/25/16 08:00 98 Room Air 08/25/16 04:00 97.6 57 20 133/66 99 08/25/16 00:00 97.5 45 18 111/65 99 111/65 08/24/16 20:00 98.4 93 16 125/73 97 08/24/16 19:15 82 08/24/16 19:15 Room Air I/O 08/24/16 08/24/16 08/24/16 08/25/16 08/25/16 08/25/16 06:59 14:59 22:59 06:59 14:59 22:59 Intake Total 240 ml 960 ml 240 ml Balance 240 ml 960 ml 240 ml Intake Oral 240 ml 960 ml 240 ml IV Total 0 ml # Voids 1 5 4 2 # Bowel Movements 1 1 Result Diagram: 08/22/16 1815 08/24/16 0720 Other Results Laboratory Tests Test 08/22/16 08/23/16 08/23/16 08/23/16 18:15 01:37 04:30 11:50 White Blood Count 7.8 TH/MM3 (4.0-11.0) Red Blood Count 3.34 MIL/MM3 (4.00-5.30) Hemoglobin 12.0 GM/DL (11.6-15.3) Hematocrit 34.7 % (35.0-46.0) Mean Corpuscular Volume 104.1 FL (80.0-100.0) Mean Corpuscular Hemoglobin 35.9 PG (27.0-34.0) Mean Corpuscular Hemoglobin 34.5 % Concent (32.0-36.0) Red Cell Distribution Width 12.9 % (11.6-17.2) Platelet Count 303 TH/MM3 (150-450) Mean Platelet Volume 7.7 FL (7.0-11.0) Neutrophils (%) (Auto) 84.7 % (16.0-70.0) Lymphocytes (%) (Auto) 4.5 % (9.0-44.0) Monocytes (%) (Auto) 10.5 % (0.0-8.0) Eosinophils (%) (Auto) 0.2 % (0.0-4.0) Basophils (%) (Auto) 0.1 % (0.0-2.0) Neutrophils # (Auto) 6.6 TH/MM3 (1.8-7.7) Lymphocytes # (Auto) 0.4 TH/MM3 (1.0-4.8) Monocytes # (Auto) 0.8 TH/MM3 (0-0.9) Eosinophils # (Auto) 0.0 TH/MM3 (0-0.4) Basophils # (Auto) 0.0 TH/MM3 (0-0.2) CBC Comment DIFF FINAL Differential Comment Prothrombin Time 10.1 SEC (9.8-11.6) Prothromb Time International 0.9 RATIO Ratio Activated Partial 25.0 SEC Thromboplast Time (24.3-30.1) D-Dimer Quantitative (PE/DVT) 0.42 MG/L FEU (0.00-0.50) Sodium Level 121 MEQ/L 127 MEQ/L 126 MEQ/L (136-145) (136-145) (136-145) Potassium Level 3.8 MEQ/L 4.0 MEQ/L (3.5-5.1) (3.5-5.1) Chloride Level 87 MEQ/L 92 MEQ/L (98-107) (98-107) Carbon Dioxide Level 24.3 MEQ/L 23.4 MEQ/L (21.0-32.0) (21.0-32.0) Anion Gap 10 MEQ/L (5-15) 11 MEQ/L (5-15) Blood Urea Nitrogen 23 MG/DL (7-18) 20 MG/DL (7-18) Creatinine 0.92 MG/DL 0.81 MG/DL (0.50-1.00) (0.50-1.00) Estimat Glomerular Filtration 61 ML/MIN (>89) 70 ML/MIN (>89) Rate Random Glucose 108 MG/DL 106 MG/DL (74-106) (74-106) Calcium Level 8.8 MG/DL 8.8 MG/DL (8.5-10.1) (8.5-10.1) Magnesium Level 1.9 MG/DL (1.5-2.5) Total Bilirubin 0.9 MG/DL (0.2-1.0) Aspartate Amino Transf 24 U/L (15-37) (AST/SGOT) Alanine Aminotransferase 33 U/L (10-53) (ALT/SGPT) Alkaline Phosphatase 67 U/L (45-117) Total Creatine Kinase 162 U/L (26-192) Creatine Kinase MB 11.6 NG/ML (0.5-3.6) Troponin I 0.02 NG/ML (0.02-0.05) Total Protein 6.8 GM/DL (6.4-8.2) Albumin 4.0 GM/DL (3.4-5.0) Serum Osmolality 273 MOSM/KG (275-295) Urine Osmolality 511 MOSM/KG (300-1300) Urine Random Sodium 17 MEQ/L Test 08/24/16 07:20 Sodium Level 130 MEQ/L (136-145) Potassium Level 3.9 MEQ/L (3.5-5.1) Chloride Level 96 MEQ/L (98-107) Carbon Dioxide Level 25.1 MEQ/L (21.0-32.0) Anion Gap 9 MEQ/L (5-15) Blood Urea Nitrogen 20 MG/DL (7-18) Creatinine 0.86 MG/DL (0.50-1.00) Estimat Glomerular Filtration 66 ML/MIN (>89) Rate Random Glucose 116 MG/DL (74-106) Calcium Level 9.1 MG/DL (8.5-10.1) Vitamin B12 Level 328 PG/ML (193-986) Free Thyroxine 0.95 NG/DL (0.76-1.46) Thyroid Stimulating Hormone 1.620 uIU/ML 3rd Gen (0.358-3.740) Imaging Last 72 hours Impressions Chest X-Ray 08/22/16 0874 Signed Impressions: Service Date/Time: Monday, August 22, 2016 18:21 - CONCLUSION: No evidence of acute cardiopulmonary disease. Amrit Alvarez MD Objective Remarks Regular rate, irregular rhythm, afib present on telemetry 2/6 mitral regurge present Lungs clear bilaterally No edema, jvd, cyanosis Medications and IVs Current Medications Medications (Trade) Dose Ordered Sig/Lucia Route PRN Reason Start Time Stop Time Status Last Admin Dose Admin Gabapentin (Neurontin) 600 mg BID PO 08/23/16 09:00 08/25/16 08:54 Lactobacillus Acidophilus (Lactinex) 1 tab DAILY PO 08/23/16 09:00 08/25/16 08:48 Metoprolol Tartrate (Lopressor) 100 mg BID PO 08/23/16 09:00 08/25/16 08:52 Patient Own Medication PT OWN MED: 1 INH (62.5 M... DAILY INH 08/23/16 09:00 Hold Sodium Chloride (NS Flush) 2 ml UNSCH PRN IV FLUSH FLUSH AFTER USING IV ACCESS 08/22/16 21:45 Sodium Chloride (NS Flush) 2 ml BID IV FLUSH 08/23/16 09:00 08/25/16 08:54 Naloxone HCl (Narcan Inj) 0.4 mg UNSCH PRN IV SEE LABEL COMMENTS 08/22/16 21:45 Senna/Docusate Sodium (Vanessa-Colace) 1 tab BID PO 08/23/16 09:00 08/23/16 08:12 Magnesium Hydroxide (Milk Of Magnesia Liq) 30 ml Q12H PRN PO MILD - MODERATE CONSTIPATION 08/22/16 21:45 Sennosides (Senokot) 17.2 mg Q12H PRN PO MODERATE - SEVERE CONSTIPATION 08/22/16 21:45 Bisacodyl (Dulcolax Supp) 10 mg DAILY PRN RECTAL SEVERE CONSITIPATION 08/22/16 21:45 Lactulose (Lactulose Liq) 30 ml DAILY PRN PO SEVERE CONSITIPATION 08/22/16 21:45 Clonidine 0.1 mg 0.1 mg Q6H PRN PO SBP> OR = 180, DBP> OR = 100 08/23/16 00:45 Diltiazem HCl/ Sodium Chloride (Cardizem Inj/NS Inj) 125 ml @ 0 mls/hr TITRATE PRN IV sustained heart rate > 120 08/23/16 09:00 Lisinopril (Prinivil) 20 mg DAILY PO 08/24/16 09:00 08/25/16 08:52 Apixaban (Eliquis) 5 mg BID PO 08/23/16 21:00 08/25/16 08:52 Ibuprofen (Motrin) 400 mg Q6H PRN PO HEADACHE 08/23/16 11:15 08/25/16 01:14 Diphenhydramine HCl (Benadryl) 25 mg BID PRN PO CONGESTION 08/23/16 18:30 08/25/16 01:14 Diltiazem HCl (Cardizem Cd) 180 mg DAILY PO 08/25/16 09:00 08/25/16 10:11 A/P Assessment and Plan Problem List: (1) New onset a-fib Status: Acute Plan: Pt has longstanding htn recently diagnosed with copd. says her fev1 was 45 and Improved with rx to 60s Was at pain clinic where she gets ELIF for Spinal stenosis new onset afib/rvr hyponatremia noted (08/24) her home dose lopressor was resumed at 100mg po bid diltiazem and eliquis noted monitor control this AM and if stable later today and ok with cardiology then d/c with f/u repeat na pending. echo pending tsh (08/25) Tachy kristofer throughout night into today Cardiology consulted Dr. Akins for possible ablation Echo notes EF 50-55%, mild left atrial dilation, moderate mitral regurgitation, moderate tricuspid regurge, and mild pulm htn TSH normal, hypernatremia correcting appropriately, currently 130 Patient would like to be d/c home with outpatient follow up if intervention not available within next few days (2) Hyponatremia Status: Acute Plan: Clinically stable, follow with bmp tomorrow (3) COPD (chronic obstructive pulmonary disease) Status: Chronic Plan: cont home inhalers (4) Spinal stenosis Status: Chronic (5) HTN (hypertension) Status: Chronic Lucy Villafana M3 Aug 25, 2016 17:23
--- NOTE | 2016-08-25 17:35 | HHI.PR ---
Subjective Remarks Pt has been bradycardic. Pt denies dizziness. Objective Vitals Vital Signs Date Time Temp Pulse Resp B/P Pulse Ox O2 Delivery O2 Flow Rate FiO2 08/25/16 16:00 98.4 61 18 130/78 98 08/25/16 12:00 98.8 62 18 171/72 100 08/25/16 08:00 97.8 101 18 106/62 98 08/25/16 08:00 98 Room Air 08/25/16 04:00 97.6 57 20 133/66 99 08/25/16 00:00 97.5 45 18 111/65 99 111/65 08/24/16 20:00 98.4 93 16 125/73 97 08/24/16 19:15 82 08/24/16 19:15 Room Air 08/24/16 08/24/16 08/25/16 15:00 23:00 07:00 Intake Total 240 ml 960 ml 240 ml Balance 240 ml 960 ml 240 ml Intake Oral 240 ml 960 ml 240 ml IV Total 0 ml # Voids 5 4 2 # Bowel Movements 1 Result Diagram: 08/22/16181408/24/16 0720 Imaging Last Impressions Chest X-Ray 08/22/161813 Signed Impressions: Service Date/Time: Monday, August 22, 2016 18:21 - CONCLUSION: No evidence of acute cardiopulmonary disease. Amrit Alvarez MD Objective Remarks GENERAL: This is a well-nourished, well-developed patient, in no apparent distress. CARDIOVASCULAR: Regular rate and rhythm without murmurs, gallops, or rubs. RESPIRATORY: Clear to auscultation. Breath sounds equal bilaterally. No wheezes , rales, or rhonchi. GASTROINTESTINAL: Abdomen soft, non-tender, nondistended. Normal active bowel sounds MUSCULOSKELETAL: Extremities without clubbing, cyanosis, or edema. NEURO: Alert & Oriented x4 to person, place, time, situation. Moves all ext x4 A/P Problem List: (1) New onset a-fib Status: Acute Plan: Pt has longstanding htn recently diagnosed with copd. says her fev1 was 45 and improved with rx to 60s Was at pain clinic where she gets ELIF for Spinal stenosis new onset afib/rvr hyponatremia noted her home dose lopressor was resumed at 100mg po bid diltiazem and eliquis noted monitor control this AM and if stable later today and ok with cardiology then d/c with f/u repeat na pending. echo pending tsh 08/25/16 - pt metoprolol - bradycardia with pauses - Dr. Akins consulted for possible EPS with ablation. (2) Hyponatremia Status: Acute Plan: - continues to normalize (3) COPD (chronic obstructive pulmonary disease) Status: Chronic Plan: cont home inhalers (4) Spinal stenosis Status: Chronic (5) HTN (hypertension) Status: Chronic Keenan Hernandez DO Aug 25, 2016 17:35
[2016-08-25 20:00] VITALS: BP_SYST 160; BP_SYST 170; BP_DIAS 103; BP_DIAS 90; PULSE 80; RESP 20; TEMP 98; O2SAT 99
[2016-08-26] VITALS (7 sets, daily range): BP systolic 122–158; BP diastolic 72–90; PULSE 68–101; RESP 18–20; TEMP 97.3–98.3; O2SAT 99–100
--- NOTE | 2016-08-26 05:43 | MB ---
cc: DORINA AU M.D., HANSCY M.D. DATE OF CONSULTATION 08/25/2016 REASON FOR CONSULTATION Atrial fibrillation, fast ventricular response, tachy-kristofer syndrome. HISTORY OF PRESENT ILLNESS Mrs. Gambino is a 70-year-old -German female, retired teacher with history of high blood pressure, breast cancer, apparent episode of ventricular tachycardia in the 90s, went to the pain management doctor on Thursday. She was found with atrial fibrillation with fast ventricular response. She was admitted, heart rate very difficult to control. She was put on Cardizem as well as metoprolol. Heart rate decreased. Medications readjusted. Right now heart rate is in the 130s to 140s on telemetry. I was consulted for evaluation and management. The chart was reviewed. The patient was evaluated. ALLERGIES DARVON. ERYTHROMYCIN. LEVAQUIN. PENICILLIN. ZOCOR. SOCIAL HISTORY The patient is negative for smoking. Drinks occasionally. FAMILY HISTORY Noncontributory to her current medical condition. MEDICATIONS She is currently on - 1. Cardizem IV. 2. Eliquis 5 mg twice a day. 3. Cardizem CD 180 mg a day. 4. Neurontin 600 mg three times a day. 5. Ibuprofen. 6. Lisinopril 20 mg a day. 7. Metoprolol 100 mg twice a day. REVIEW OF SYSTEMS She refers some tiredness and palpitation but no chest pain or chest discomfort. PHYSICAL EXAMINATION GENERAL: Alert, fully oriented. VITAL SIGNS: Her blood pressure is 130/78, pulse on the monitor currently is around 110/120, respiratory 18. LUNGS: Ventilated. CARDIOVASCULAR: S1-S2, irregular tachycardic. ABDOMEN: Soft. No mass. EXTREMITIES: No edema. ELECTROCARDIOGRAM Atrial fibrillation with fast ventricular response. LABORATORY DATA Potassium is 3.9, sodium today is 130, creatinine 0.86. TSH is 1.62. Hemoglobin is 12, white blood cells 7.8. INR is 0.9. ASSESSMENT AND RECOMMENDATIONS Mrs. Gambino has atrial fibrillation with fast ventricular response. Rate difficult to control. She is on high dose of Cardizem as well as metoprolol. She developed over 3-second pause last night and severe bradycardia. Medication was readjusted. She is on Eliquis. Also she has hyponatremia. Sodium increased from 125-130. I discussed with her extensively the option of electrophysiology study and ablation. The risks, the nature and the benefit of the procedure are clearly stated to her. The risks include pneumothorax, cardiac perforation, stroke and even . She understood and agreed to proceed. First I need her sodium to increase above 130s. The left atrium is currently around 35-40. Ejection fraction is normal. She will be observed. Based on the electrolytes and how the patient is doing tomorrow, decision about the ablation will be taken. Case extensively discussed with her. I will monitor her during the hospitalization. MD NGA Butt/VANESSA /6:19 PM /5:38 AM
--- NOTE | 2016-08-26 08:00 | PD.CARD.PN ---
Subjective Subjective Remarks No complaints. Feels good. Objective Medications Current Medications Medications (Trade) Dose Ordered Sig/Lucia Route Start Time Stop Time Status Last Admin (Neurontin) 600 mg BID PO 08/23/16 09:00 08/25/16 21:54 (Lactinex) 1 tab DAILY PO 08/23/16 09:00 08/25/16 08:48 (Lopressor) 100 mg BID PO 08/23/16 09:00 08/25/16 21:54 Patient Own Medication PT OWN MED: 1 INH (62.5 M... DAILY INH 08/23/16 09:00 Hold (NS Flush) 2 ml UNSCH PRN IV FLUSH 08/22/16 21:45 (NS Flush) 2 ml BID IV FLUSH 08/23/16 09:00 08/25/16 21:55 (Narcan Inj) 0.4 mg UNSCH PRN IV 08/22/16 21:45 (Vanessa-Colace) 1 tab BID PO 08/23/16 09:00 08/23/16 08:12 (Milk Of Magnesia Liq) 30 ml Q12H PRN PO 08/22/16 21:45 (Senokot) 17.2 mg Q12H PRN PO 08/22/16 21:45 (Dulcolax Supp) 10 mg DAILY PRN RECTAL 08/22/16 21:45 (Lactulose Liq) 30 ml DAILY PRN PO 08/22/16 21:45 Clonidine 0.1 mg 0.1 mg Q6H PRN PO 08/23/16 00:45 (Cardizem Inj/NS Inj) 125 ml @ 0 mls/hr TITRATE PRN IV 08/23/16 09:00 (Prinivil) 20 mg DAILY PO 08/24/16 09:00 08/25/16 08:52 (Eliquis) 5 mg BID PO 08/23/16 21:00 08/25/16 21:54 (Motrin) 400 mg Q6H PRN PO 08/23/16 11:15 08/25/16 21:54 (Benadryl) 25 mg BID PRN PO 08/23/16 18:30 08/25/16 01:14 (Cardizem Cd) 180 mg DAILY PO 08/25/16 09:00 08/25/16 10:11 Vital Signs / I&O Vital Signs Date Time Temp Pulse Resp B/P Pulse Ox O2 Delivery O2 Flow Rate FiO2 08/26/16 04:00 98.3 78 18 132/72 99 08/26/16 00:00 98.0 73 20 146/83 100 08/25/16 20:00 98.0 80 20 170/103 99 160/90 08/25/16 19:15 97 Room Air 08/25/16 16:00 58 08/25/16 16:00 98 Room Air 08/25/16 16:00 58 08/25/16 16:00 98.4 61 18 130/78 98 08/25/16 12:00 98.8 62 18 171/72 100 08/25/16 08:00 97.8 101 18 106/62 98 08/25/16 08:00 98 Room Air I/O 08/25/16 08/25/16 08/25/16 08/26/16 08/26/16 08/26/16 07:00 15:00 23:00 07:00 15:00 23:00 Intake Total 240 ml 960 ml 340 ml 240 ml Balance 240 ml 960 ml 340 ml 240 ml Intake Oral 240 ml 960 ml 340 ml 240 ml # Voids 2 3 2 1 # Bowel Movements 1 Physical Exam GENERAL: Well-nourished, well-developed patient. SKIN: Warm and dry. HEAD: Normocephalic. EYES: No scleral icterus. No injection or drainage. NECK: Supple, trachea midline. No JVD or lymphadenopathy. CARDIOVASCULAR: Irregular rhythm, tachycardic rate, no rub murmur or gallop. RESPIRATORY: Breath sounds equal bilaterally. No accessory muscle use. GASTROINTESTINAL: Abdomen soft, non-tender, nondistended. EXTREMITIES: No cyanosis, or edema. NEUROLOGICAL: Awake, alert, and oriented x 3. Non-focal. Imaging Last Impressions Chest X-Ray 08/22/161813 Signed Impressions: Service Date/Time: Monday, August 22, 2016 18:21 - CONCLUSION: No evidence of acute cardiopulmonary disease. Amrit Alvarez MD Assessment and Plan Problem List: (1) New onset a-fib Assessment and Plan: Plan for A. fib ablation on Thursday if sodium stable. Patient on eliquis, which will have to be held prior to ablation. 08/24 level 130. BMP ordered for today, pending. Heart rate remains mildly tachycardic less than 120. Patient is asymptomatic. Assessment and plan discussed with patient, RN, Dr. Akins. Munira Jackman Aug 26, 2016 08:00
[2016-08-26] MEDS: METOPROLOL TARTRATE 100 MG TAB PO SCH ×2 (08:12→20:54)
[2016-08-26] MEDS: DILTIAZEM-CD 180 MG CAP ER PO SCH (08:12)
[2016-08-26] MEDS: SODIUM CHLORIDE 0.9% FLUSH 10 ML FLUSH IV FLUSH SCH ×2 (08:12→20:56)
[2016-08-26] MEDS: LACTOBACILLUS ACIDOPHILUS TAB PO SCH (08:12)
[2016-08-26] MEDS: GABAPENTIN 300 MG CAP PO SCH ×2 (08:12→20:54)
[2016-08-26] MEDS: LISINOPRIL 20 MG TAB PO SCH (08:13)
[2016-08-26] MEDS: DOCUSATE SODIUM 50 MG/SENNA 8.6 MG TAB PO SCH ×2 (08:15→20:54)
[2016-08-26] MEDS: APIXABAN 5 MG TABLET PO SCH ×2 (08:27→20:54)
[2016-08-26 12:01] LABS: BICARBONATE 25.1 MEQ/L (21.0-32.0); POTASSIUM 3.4 MEQ/L (3.5-5.1)
[2016-08-26] MEDS ORDERED: NS + KCL 20 MEQ INJ 1,000 ML IV SCH (12:30)
--- NOTE | 2016-08-26 17:32 | HHI.PR ---
Subjective Remarks no new complaints. Objective Vitals Vital Signs Date Time Temp Pulse Resp B/P Pulse Ox O2 Delivery O2 Flow Rate FiO2 08/26/16 16:00 98.1 68 18 139/74 100 08/26/16 12:00 97.3 76 18 122/87 100 08/26/16 10:19 85 08/26/16 10:19 85 08/26/16 08:00 99 Room Air 08/26/16 08:00 97.5 90 18 158/90 99 08/26/16 04:00 98.3 78 18 132/72 99 08/26/16 00:00 98.0 73 20 146/83 100 08/25/16 20:00 98.0 80 20 170/103 99 160/90 08/25/16 19:15 97 Room Air 08/25/16 08/25/16 08/26/16 14:59 22:59 06:59 Intake Total 960 ml 340 ml 240 ml Balance 960 ml 340 ml 240 ml Intake Oral 960 ml 340 ml 240 ml # Voids 3 2 1 # Bowel Movements 1 Result Diagram: 08/22/165 08/26/16 1116 Imaging Last Impressions Chest X-Ray 08/22/161813 Signed Impressions: Service Date/Time: Monday, August 22, 2016 18:21 - CONCLUSION: No evidence of acute cardiopulmonary disease. Amrit Alvarez MD Objective Remarks GENERAL: This is a well-nourished, well-developed patient, in no apparent distress. CARDIOVASCULAR: irregular RESPIRATORY: Clear to auscultation. Breath sounds equal bilaterally. No wheezes , rales, or rhonchi. GASTROINTESTINAL: Abdomen soft, non-tender, nondistended. Normal active bowel sounds MUSCULOSKELETAL: Extremities without clubbing, cyanosis, or edema. NEURO: Alert & Oriented x4 to person, place, time, situation. Moves all ext x4 A/P Problem List: (1) New onset a-fib Status: Acute Plan: Pt has longstanding htn recently diagnosed with copd. says her fev1 was 45 and improved with rx to 60s Was at pain clinic where she gets ELIF for Spinal stenosis new onset afib/rvr hyponatremia noted her home dose lopressor was resumed at 100mg po bid diltiazem and eliquis noted monitor control this AM and if stable later today and ok with cardiology then d/c with f/u repeat na pending. echo pending tsh 08/26/16 - pt metoprolol - bradycardia with pauses - plan for EPS with ablation by Dr. Akins 08/27/16 - NA 128 (08/26/16) - IVF - repeat BMP in AM (2) Hyponatremia Status: Acute Plan: - continues to normalize (3) COPD (chronic obstructive pulmonary disease) Status: Chronic Plan: cont home inhalers (4) Spinal stenosis Status: Chronic (5) HTN (hypertension) Status: Chronic Keenan Hernandez DO Aug 26, 2016 17:32
[2016-08-26] MEDS: SODIUM CHLOR 0.9% 1000 ML INJ 1,000 ML IV SCH (18:15)
[2016-08-27] VITALS (7 sets, daily range): BP systolic 131–170; BP diastolic 54–101; PULSE 62–93; RESP 16–18; TEMP 97.7–98.5; O2SAT 94–100
[2016-08-27] MEDS: SODIUM CHLOR 0.9% 1000 ML INJ 1,000 ML IV SCH ×2 (06:10→19:03)
[2016-08-27 08:30] LABS: BICARBONATE 21.7 MEQ/L (21.0-32.0); MAGNESIUM 2.1 MG/DL (1.5-2.5)
[2016-08-27 08:31] LABS: POTASSIUM 4.2 MEQ/L (3.5-5.1)
[2016-08-27] MEDS: DOCUSATE SODIUM 50 MG/SENNA 8.6 MG TAB PO SCH ×3 (09:00→21:00)
[2016-08-27] MEDS: SODIUM CHLORIDE 0.9% FLUSH 10 ML FLUSH IV FLUSH SCH ×2 (09:00→21:00)
[2016-08-27] MEDS: LACTOBACILLUS ACIDOPHILUS TAB PO SCH (09:38)
[2016-08-27] MEDS: GABAPENTIN 300 MG CAP PO SCH ×2 (09:38→21:26)
[2016-08-27] MEDS: METOPROLOL TARTRATE 100 MG TAB PO SCH ×2 (09:38→21:26)
[2016-08-27] MEDS: LISINOPRIL 20 MG TAB PO SCH (09:38)
[2016-08-27] MEDS: APIXABAN 5 MG TABLET PO SCH (09:38)
[2016-08-27] MEDS: DILTIAZEM-CD 180 MG CAP ER PO SCH (09:39)
--- NOTE | 2016-08-27 18:05 | HHI.PR ---
Subjective Remarks No new complaints. Objective Vitals Vital Signs Date Time Temp Pulse Resp B/P Pulse Ox O2 Delivery O2 Flow Rate FiO2 08/27/16 16:00 97.7 82 17 140/90 100 08/27/16 12:00 97.7 77 17 131/73 100 08/27/16 08:00 97.9 93 17 169/101 94 08/27/16 08:00 Room Air 08/27/16 08:00 90 08/27/16 04:00 98.3 82 18 144/54 99 08/27/16 00:00 97.8 62 18 138/88 100 08/26/16 20:00 100 Room Air 08/26/16 20:00 97.8 97 18 134/84 100 08/26/16 20:00 101 08/26/16 20:00 101 08/26/16 08/26/16 08/27/16 15:00 23:00 07:00 Intake Total 720 ml 1179 ml 904 ml Output Total 500 ml 200 ml Balance 720 ml 679 ml 704 ml Intake Oral 720 ml 560 ml 220 ml IV Total 619 ml 684 ml Output Urine Total 500 ml 200 ml # Voids 3 # Bowel Movements 1 0 Result Diagram: 08/27/16 0655 Imaging Last Impressions Chest X-Ray 08/22/16 1814 Signed Impressions: Service Date/Time: Monday, August 22, 2016 18:21 - CONCLUSION: No evidence of acute cardiopulmonary disease. Amrit Alvarez MD Objective Remarks GENERAL: This is a well-nourished, well-developed patient, in no apparent distress. CARDIOVASCULAR: irregular RESPIRATORY: Clear to auscultation. Breath sounds equal bilaterally. No wheezes , rales, or rhonchi. GASTROINTESTINAL: Abdomen soft, non-tender, nondistended. Normal active bowel sounds MUSCULOSKELETAL: Extremities without clubbing, cyanosis, or edema. NEURO: Alert & Oriented x4 to person, place, time, situation. Moves all ext x4 A/P Problem List: (1) New onset a-fib Status: Acute Plan: Pt has longstanding htn recently diagnosed with copd. says her fev1 was 45 and improved with rx to 60s Was at pain clinic where she gets ELIF for Spinal stenosis new onset afib/rvr hyponatremia noted her home dose lopressor was resumed at 100mg po bid diltiazem and eliquis noted monitor control this AM and if stable later today and ok with cardiology then d/c with f/u repeat na pending. echo pending tsh 08/26/16 - pt metoprolol - bradycardia with pauses - plan for EPS with ablation by Dr. Akins, date? - NA 128 (08/26/16), NA 130 (08/27/16) - IVF - repeat BMP in AM (2) Hyponatremia Status: Acute Plan: - continues to normalize (3) COPD (chronic obstructive pulmonary disease) Status: Chronic Plan: cont home inhalers (4) Spinal stenosis Status: Chronic (5) HTN (hypertension) Status: Chronic Keenan Hernandez DO Aug 27, 2016 18:05
--- NOTE | 2016-08-27 19:54 | HHI.PR ---
Subjective Remarks Feeling ok Objective Vital Signs Date Time Temp Pulse Resp B/P Pulse Ox O2 Delivery O2 Flow Rate FiO2 08/27/16 16:00 97.7 82 17 140/90 100 08/27/16 12:00 97.7 77 17 131/73 100 08/27/16 08:00 97.9 93 17 169/101 94 08/27/16 08:00 Room Air 08/27/16 08:00 90 08/27/16 04:00 98.3 82 18 144/54 99 08/27/16 00:00 97.8 62 18 138/88 100 08/26/16 20:00 100 Room Air 08/26/16 20:00 97.8 97 18 134/84 100 08/26/16 20:00 101 08/26/16 20:00 101 I/O 08/26/16 08/26/16 08/26/16 08/27/16 08/27/16 08/27/16 07:00 15:00 23:00 07:00 15:00 23:00 Intake Total 240 ml 720 ml 1179 ml 904 ml 720 ml Output Total 500 ml 200 ml Balance 240 ml 720 ml 679 ml 704 ml 720 ml Intake Oral 240 ml 720 ml 560 ml 220 ml 720 ml IV Total 619 ml 684 ml Output Urine Total 500 ml 200 ml # Voids 1 3 4 # Bowel Movements 1 0 Result Diagram: 08/27/16 0655 Imaging Alert, fully oriented Lungs: ventilated Heart: S1, S2 irregular Abdomen: soft, no mass Ext: no edema Assessment and Plan Problem List: (1) Atrial fibrillation with RVR Status: Acute Plan: In atrial fibrillation. HR difficult to control Na+ improving If Na+ above 130, possible ablation tomorrow or Thursday Case discussed with patient (2) HTN (hypertension) Status: Chronic Plan: SBP 140 (3) Hyponatremia Status: Acute Plan: Na+ 130 today. Receiving NaCl Kurtis Akins MD Aug 27, 2016 19:54
[2016-08-28] VITALS (8 sets, daily range): BP systolic 138–163; BP diastolic 73–104; PULSE 60–126; RESP 16–21; TEMP 97.8–98.4; O2SAT 98–100
[2016-08-28] MEDS: SODIUM CHLOR 0.9% 1000 ML INJ 1,000 ML IV SCH (05:10)
[2016-08-28 07:08] LABS: BICARBONATE 21.8 MEQ/L (21.0-32.0); POTASSIUM 3.8 MEQ/L (3.5-5.1)
[2016-08-28] MEDS: METOPROLOL TARTRATE 100 MG TAB PO SCH ×2 (08:27→20:35)
[2016-08-28] MEDS: SODIUM CHLORIDE 0.9% FLUSH 10 ML FLUSH IV FLUSH SCH ×2 (08:27→20:35)
[2016-08-28] MEDS: LISINOPRIL 20 MG TAB PO SCH (08:27)
[2016-08-28] MEDS: LACTOBACILLUS ACIDOPHILUS TAB PO SCH (08:27)
[2016-08-28] MEDS: GABAPENTIN 300 MG CAP PO SCH ×2 (08:27→20:35)
[2016-08-28] MEDS: DILTIAZEM-CD 180 MG CAP ER PO SCH (08:27)
[2016-08-28] MEDS: DOCUSATE SODIUM 50 MG/SENNA 8.6 MG TAB PO SCH ×2 (08:28→20:35)
--- NOTE | 2016-08-28 11:52 | HHI.PR ---
Subjective Remarks No new complaints. Objective Vitals Vital Signs Date Time Temp Pulse Resp B/P Pulse Ox O2 Delivery O2 Flow Rate FiO2 08/28/16 08:00 97.9 76 18 163/86 100 08/28/16 04:58 98.2 60 16 154/73 98 08/28/16 00:00 Room Air 08/28/16 00:00 97.8 67 16 153/85 100 08/27/16 20:00 98.5 87 16 170/90 99 08/27/16 20:00 Room Air 08/27/16 19:57 86 08/27/16 16:00 97.7 82 17 140/90 100 08/27/16 12:00 97.7 77 17 131/73 100 08/27/16 08/27/16 08/28/16 15:00 23:00 07:00 Intake Total 720 ml 550 ml 2329 ml Output Total 600 ml Balance 720 ml -50 ml 2329 ml Intake Oral 720 ml 550 ml 500 ml IV Total 1829 ml Output Urine Total 600 ml # Voids 4 6 # Bowel Movements 0 1 Result Diagram: 08/28/16 0638 Imaging Last Impressions Chest X-Ray 08/22/161813 Signed Impressions: Service Date/Time: Monday, August 22, 2016 18:21 - CONCLUSION: No evidence of acute cardiopulmonary disease. Amrit Alvarez MD Objective Remarks GENERAL: This is a well-nourished, well-developed patient, in no apparent distress. CARDIOVASCULAR: irregular RESPIRATORY: Clear to auscultation. Breath sounds equal bilaterally. No wheezes , rales, or rhonchi. GASTROINTESTINAL: Abdomen soft, non-tender, nondistended. Normal active bowel sounds MUSCULOSKELETAL: Extremities without clubbing, cyanosis, or edema. NEURO: Alert & Oriented x4 to person, place, time, situation. Moves all ext x4 A/P Problem List: (1) New onset a-fib Status: Acute Plan: Pt has longstanding htn recently diagnosed with copd. says her fev1 was 45 and improved with rx to 60s Was at pain clinic where she gets ELIF for Spinal stenosis new onset afib/rvr echo (08/24/16) --> EF 50-55%, mod TR, mild pulm HTN - cardizem, lopressor - hyponatremia nearly resolved - Eliquis on hold for ablation - case d/w Dr. Akins 08/27/16 - anticipate ablation today or 08/29 (2) Hyponatremia Status: Acute Plan: - continues to normalize - NA 135 (08/28/16) (3) COPD (chronic obstructive pulmonary disease) Status: Chronic Plan: cont home inhalers (4) Spinal stenosis Status: Chronic (5) HTN (hypertension) Status: Chronic Keenan Hernandez DO Aug 28, 2016 11:52
--- NOTE | 2016-08-28 18:03 | HHI.PR ---
Subjective Remarks Feeling ok Objective Vital Signs Date Time Temp Pulse Resp B/P Pulse Ox O2 Delivery O2 Flow Rate FiO2 08/28/16 16:00 98.4 63 18 160/80 100 08/28/16 12:00 98.1 78 18 148/104 98 08/28/16 08:57 126 08/28/16 08:57 Room Air 08/28/16 08:00 97.9 76 18 163/86 100 08/28/16 04:58 98.2 60 16 154/73 98 08/28/16 00:00 Room Air 08/28/16 00:00 97.8 67 16 153/85 100 08/27/16 20:00 98.5 87 16 170/90 99 08/27/16 20:00 Room Air 08/27/16 19:57 86 I/O 08/27/16 08/27/16 08/27/16 08/28/16 08/28/16 08/28/16 07:00 15:00 23:00 07:00 15:00 23:00 Intake Total 904 ml 720 ml 550 ml 2329 ml 0 ml Output Total 200 ml 600 ml Balance 704 ml 720 ml -50 ml 2329 ml 0 ml Intake Oral 220 ml 720 ml 550 ml 500 ml 0 ml IV Total 684 ml 1829 ml Output Urine Total 200 ml 600 ml # Voids 4 6 8 # Bowel Movements 0 1 1 Result Diagram: 08/28/16 0638 Imaging Alert, oriented, reading lungs: ventilated Heart: S1, S2 irregular abdomen: soft, no mass Ext: no edema Assessment and Plan Problem List: (1) Atrial fibrillation with RVR Status: Acute Plan: In atrial fibrillation Na+ 135 today.EPS and ablation tomorrow Case discussed with patient (2) HTN (hypertension) Status: Chronic Plan: SBP 148 (3) Hyponatremia Status: Acute Plan: Na+ 135 today. Receiving NaCl Kurtis Akins MD Aug 28, 2016 18:03
[2016-08-29] VITALS (9 sets, daily range): BP systolic 130–158; BP diastolic 72–94; PULSE 63–100; RESP 16–18; TEMP 97.6–98.8; O2SAT 97–100
[2016-08-29] MEDS: GABAPENTIN 300 MG CAP PO SCH ×2 (08:50→21:28)
[2016-08-29] MEDS: LISINOPRIL 20 MG TAB PO SCH (08:50)
[2016-08-29] MEDS: DOCUSATE SODIUM 50 MG/SENNA 8.6 MG TAB PO SCH ×2 (08:52→21:00)
[2016-08-29] MEDS: METOPROLOL TARTRATE 100 MG TAB PO SCH (08:53)
[2016-08-29] MEDS: DILTIAZEM-CD 180 MG CAP ER PO SCH (08:54)
[2016-08-29] MEDS: LACTOBACILLUS ACIDOPHILUS TAB PO SCH (08:54)
[2016-08-29] MEDS: SODIUM CHLORIDE 0.9% FLUSH 10 ML FLUSH IV FLUSH SCH ×2 (08:55→21:28)
--- NOTE | 2016-08-29 09:09 | HHI.PR ---
Subjective Remarks eager to complete the procedure Objective Vitals heart irreg lung cta abd s/nt ext no edema Vital Signs Date Time Temp Pulse Resp B/P Pulse Ox O2 Delivery O2 Flow Rate FiO2 08/29/16 08:00 Room Air 08/29/16 04:00 98.8 80 18 152/82 99 08/29/16 00:00 98.3 86 18 155/94 97 08/28/16 20:40 Room Air 08/28/16 20:17 110 08/28/16 20:00 Room Air 08/28/16 20:00 97.9 92 21 138/83 100 08/28/16 16:00 98.4 63 18 160/80 100 08/28/16 12:00 98.1 78 18 148/104 98 08/28/16 08/28/16 08/29/16 15:00 23:00 07:00 Intake Total 0 ml Output Total 300 ml Balance 0 ml -300 ml Intake Oral 0 ml Output Urine Total 300 ml # Voids 8 # Bowel Movements 1 0 Result Diagram: 08/28/16 0638 Imaging Last Impressions Chest X-Ray 08/22/161813 Signed Impressions: Service Date/Time: Monday, August 22, 2016 18:21 - CONCLUSION: No evidence of acute cardiopulmonary disease. Amrit Alvarez MD A/P Problem List: (1) New onset a-fib Status: Acute Plan: Pt has longstanding htn recently diagnosed with copd. says her fev1 was 45 and improved with rx to 60s Was at pain clinic where she gets ELIF for Spinal stenosis new onset afib/rvr echo (08/24/16) --> EF 50-55%, mod TR, mild pulm HTN - cardizem, lopressor - hyponatremia resolved - Eliquis on hold for ablation today. (2) Hyponatremia Status: Acute Plan: - continues to normalize - NA 135 (08/28/16) (3) COPD (chronic obstructive pulmonary disease) Status: Chronic Plan: cont home inhalers (4) Spinal stenosis Status: Chronic (5) HTN (hypertension) Status: Chronic Billy Hough MD Aug 29, 2016 09:09
[2016-08-29 10:23] LABS: BICARBONATE 24.9 MEQ/L (21.0-32.0); POTASSIUM 3.7 MEQ/L (3.5-5.1)
[2016-08-29] MEDS ORDERED: VANCOMYCIN HCL 1000 MG VIAL ONE (15:16)
[2016-08-29] MEDS ORDERED: PROPOFOL 200 MG/20 ML AMP IV ONE (15:19)
[2016-08-29] MEDS ORDERED: SODIUM CHLOR 0.9% 250 ML BAG IV ONE (15:19)
--- NOTE | 2016-08-29 17:25 | CATHPROC ---
[employer] HIS Report Study Information Study Number Admission Scheduled Start Study Start [id number] Aug 22 2016 8:08PM 08/29/2016 Aug 29 2016 3:02PM [place] Service Electrophysiology Study Admit Source Facility Department Other [facility] - Sign Language Instructor Physician and Clinical Staff Initial Kurtis Burkett Creative Services Director Sachi Tony,EXTRUSION FORMER TECH2 Other Anesthesia, LEAD GENERATION SPECIALIST Recorder Soheila Melo,BSRN Recorder Hina Sevilla,HAMMAD Scrub Tania Saleh,RT(R) TECH2 Procedures Performed Procedure Location (Site) Vessel Name Cardioversion ICE CATHETER INSERT RA Atruim RF Ablation LT. ATRIUM LT. ATRIUM Equipment Time Train Station Server Description Size Mfg Part Number Used/Scraped NEEDLE, TRANSSEPTAL NRG 98 15:40 [facility] [id number] Used C1 [employer]/ EP 15:40 KIT, TRANSDUCER / AFIB [id number] Used PACER [id number] CATHETER, TACTICATH ABLAT BUNDLE 15:40 [facility] Used 65 BUNDLE *[id number] BUNDLE [id number] CATHETER, FR7 OPTIMA SPIRAL 15:40 B[facility] FR7 *[id number] Used BUNDLE BUNDLE [id number] 15:40 BUND[facility] CATHETER, JSN, QUAD BUNDLE FR 5 *[id number] Used BUNDLE [id number] 15:40 BUNDLE-[facility] CATHETER, JSN, QUAD BUNDLE FR 5 *[id number]- Used BUNDLE [id number] SET, COOL POINT TUBING 15:40 BUNDLE-[facility] *[id number]- Used BUNDLE BUNDLE SHEATH, FR8.5 STEERABLE SM 15:40 BUNDLE-[facility] 71CM [id number] Used 71CM BUNDLE COVER, TRANSDUCER CABLE 15:40 [employer] [id number] Used ACUNAV 15:40 CORDIS/PACER SHEATH, FR10 ZUHAIR 11CM FR 10 [id number] Used 15:40 CORDIS/PACER SHEATH, FR9 ZUHAIR 11CM FR 9 [id number] Used [id number] 15:40 [employer] INDUSTRIES PACK, CCL CUSTOM * Used *[id number] 15:40 MEDLINE PACER ROY, LIMB * 2530 *[id number] Used [id number] 15:40 Jet MEDICAL SHEATH, FR4.5 PRELUDE 11CM FR 4.5 Used [id number] 15:40 NAMIC TUBING, HIGH PRESSURE 48" 48" Used *[id number] 15:40 NAMIC TUBING, HIGH PRESSURE 48" 48" Used *[id number] 15:40 [employer] MEDICAL BLANKET,WARM AIR CCL * Used *[id number] 16:26 [facility] MEDICAL CATHETER, JSN, QUAD FR 5 Used *[id number] 15:40 [facility] MEDICAL ELECTRODE KIT, ANATOLY X SURFACE * [id number] Used 15:40 [facility] MEDICAL SHEATH, EPS, FR6 FAST CATH FR 6 [id number] Used 15:40 [facility] MEDICAL SHEATH, EPS, FR7 FAST CATH FR 7 [id number] Used 15:40 [facility] MEDICAL SHEATH, EPS, FR8 FAST CATH FR 8 [id number] Used CATHETER, ACUNAV FR10 ICE [id number] 16:19 CARY FR 10 Used (CARY) *[id number] [facility] PAD, ELECTROSURGICAL 15:40 * [id number] *[id number] Used SURGICAL GROUNDING (BLUE) History: Allergies Allergy Reaction Darvon Erythromycin Levaquin Penicillin Simvastatin History: Risk Factors Hypertension Dyslipidemia Previous NH Previous Heart Failure Yes Yes No No Prior Valve Prior PCI Prior CABG Surgery No No No Cerebrovascular Peripheral Artery Chronic Lung On Dialysis Diabetes Disease Disease Disease No No No No No History: Risk Factors Selection Items Hyperlipidemia History: Other Disease Selection Items Gerd HTN Labs Hgb (g/dl) Hct (%) RBC (MIL/MM3) WBC (l/cumm) Platelets (thousands) 11.60-17.00 35.00-51.00 4.00-5.90 4.00-11.00 150.00-450.00 12.0 34.7 3.3 7.8 303 Glucose (mg/dl) BUN (mg/dl) Creatinine (mg/dl) BUN:Creatinine (1:x) 74.00-106.00 7.00-18.00 0.50-1.30 10.00-20.00 93 12 0.5 24 Na (meq/l) K (meq/l) Cl (meq/l) CO2 (mmol/L) Ca (mg/dl) 136.00-145.00 3.50-5.10 98.00-107.00 21.00-32.00 8.50-10.10 135 3.8 103 21.8 8.2 INR (PTT:PT) 0.90-1.10 0.9 Medication Medication Total Dose (Bolus/Oral) Medication Total Dosage/Unit 1% XYLOCAINE 40 mL HEPARIN 8000 units Medications (Bolus/Oral) Medication Time Given Dosage/Unit Administered By Reason 1% XYLOCAINE 08/29/2016 4:09:32 PM 20 mL Kurtis Akins As per physicians ve rbal order 20 mL 1% XYLOCAINE given in lab by Kurtis Akins in Left Groin via Subcutaneous. Ordered by Curt Akins. Reason: As per physicians verbal order. 1% XYLOCAINE 08/29/2016 4:13:22 PM 20 mL Kurtis Akins As per physicians ve rbal order 20 mL 1% XYLOCAINE given in lab by Kurtis Akins in Right Groin via Subcutaneous. Ordered by Claudine Akins. Reason: As per physicians verbal order. HEPARIN 08/29/2016 4:21:00 PM 8000 units Anesthesia, LEAD GENERATION SPECIALIST As per physicians v erbal order 8000 units HEPARIN given in lab by Anesthesia, LEAD GENERATION SPECIALIST in Right Forearm via Peripheral IV. Ordered by Kurtis Sotelo. Reason: As per physicians verbal order. Medication (Drip) Medication Time Given Dosage/Unit Concentration/Unit Diluent (ml) Solution IV Solutions 08/29/2016 3:33:33 PM 0 mL (IV) NaCl .9 IV Solutions given in lab by Anesthesia, LEAD GENERATION SPECIALIST in Right Forearm via Peripheral IV. Pump/Drip Flow = 50 ml/hr using NaCl .9. Ordered by Kurtis Akins. IV Solutions 08/29/2016 3:34:38 PM 0 mL (IV) NaCl .9 IV Solutions given in lab by Anesthesia, LEAD GENERATION SPECIALIST in Right Forearm via Peripheral IV. Pump/Drip Flow = 50 ml/hr using NaCl .9. Ordered by Kurtis Akins. VANCOMYCIN DRIP 08/29/2016 3:48:00 PM 1 g 1 g VANCOMYCIN DRIP given in lab by Anesthesia, LEAD GENERATION SPECIALIST in Right Forearm via Peripheral IV. Ordered by Kurtis Camejo. Reason: As per physicians verbal order. Initial Case Assessment Cardiovascular HR NIBP Chest Pain 125 222/137 0 Edema Present Skin color Skin None Normal Warm Dry Neurological State Oriented to time-place- Alert Moves all extremities person Respiration - General Respiration Rate SpO2 (%) (B/min) 18 100 Final Case Assessment Cardiovascular HR Rhythm NIBP Chest Pain 64 SR 132/62 0 Edema Present Skin color Skin None Normal Warm Dry Circulatory - Right Pulses Dorsalis Pedis 1 Scale (0,1,2,3,4,d) Circulatory - Left Pulses Dorsalis Pedis 1 Scale (0,1,2,3,4,d) Neurological State Oriented to time-place- Alert Moves all extremities person Respiration - General Respiration Rate SpO2 (%) O2 (lpm) (B/min) 18 100 4 Chronological Log Time Study Chronological Log 15:18:00 Indwelling uretheral catheter inserted in DOC unit before arrival. 15:19:00 Patient arrived via Bed. 15:32:23 Patient Name, D.O.B, / Armband Verified By R.N. 15:32:25 Consent signed by the physician and the patient and verified by the Sign Language Instructor staff. 15:32:28 Pre-op and post- op instructions given; patient acknowledges understanding of instructions. Anesthesia at bedside. Assumes care of patient. Ramakrishna [place] SEE RECORDS FOR ALL MEDS AND VITALS D URING 15:32:30 PROCEDURE 15:32:38 Presedation assessment performed by Sign Language Instructor RN. 15:32:42 Patient has been NPO for More than 6Hrs. 15:32:47 Skin Breakdown- none 15:32:59 Disposable Defibrillator Pads Placed On Patient. Assessment: Initial Case, BD=210 BPM, EFMK=769/137 mmhg, Chest Pain=0, Edema=None, Color=Normal , Skin = Warm, Dry 15:33:00 Neurological: State=Alert, Ox3, RAWLS Respiration: Resp=18 B/min, LeW7=885 % 15:33:01 Lisbet Prominences Protected 15:33:04 A # 20 IV was noted in the Forearm (right). Grade = ~GRADE~ 15:33:19 A # 22 IV was noted in the Forearm (right). Grade = ~GRADE~ IV Solutions given in lab by Anesthesia, LEAD GENERATION SPECIALIST in Right Forearm via Peripheral IV. Pump/Drip German w = 50 ml/hr using 15:33:33 NaCl .9. Ordered by Kurtis Akins. IV Solutions given in lab by Anesthesia, LEAD GENERATION SPECIALIST in Right Forearm via Peripheral IV. Pump/Drip German w = 50 ml/hr using 15:34:38 NaCl .9. Ordered by Kurtis Akins. 15:35:00 MD arrived. 15:35:01 History and physical on the chart or being dictated. 15:35:03 Table restraints applied according to hospital policy 15:35:06 Right groin prepped with 2% chlorhexidine, and with a 3 min. waiting time. 15:35:13 Left groin prepped with 2% chlorhexidine, and with a 3 min. waiting time. 1 g VANCOMYCIN DRIP given in lab by Anesthesia, LEAD GENERATION SPECIALIST in Right Forearm via Peripheral IV. Ordere d by Kurtis Akins. 15:48:00 Reason: As per physicians verbal order. Time Out. Correct patient, procedure, procedure equipment, site and side verified with physicia n present. Time 16:03:00 concurred by MD, individual staff and LEAD GENERATION SPECIALIST. Time Out #2 - Consents verified, patient in correct position, all results are labled and displa yed, safety precautions 16:03:00 taken, antibiotics administered. Time out concurred by MD, individual staff and LEAD GENERATION SPECIALIST in procedu re 16:04:23 Case Start 16:05:00 CLOVIS begun at bedside. 16:09:11 CLOVIS completed. 20 mL 1% XYLOCAINE given in lab by Kurtis Akins in Left Groin via Subcutaneous. Ordered by Kurtis Beltran. 16:09:32 Reason: As per physicians verbal order. 16:10:03 Vascular access was obtained in the Fem Vein (left). 16:10:09 Vascular access was obtained in the Fem Vein (left). 16:10:10 Vascular access was obtained in the Fem Vein (left). 16:10:17 Vascular access was obtained in the Fem Art (left). 16:11:33 A SHEATH, FR4.5 PRELUDE 11CM FR 4.5 was advanced into the Fem Art (left) using the Percutan eous technique. 16:12:11 A SHEATH, EPS, FR6 FAST CATH FR 6 was advanced into the Fem Vein (left) using the Percutane ous technique. 16:12:25 A SHEATH, EPS, FR7 FAST CATH FR 7 was advanced into the Fem Vein (left) using the Percutane ous technique. 16:12:39 A SHEATH, FR10 ZUHAIR 11CM FR 10 was advanced into the Fem Vein (left) using the Percutaneo us technique. 20 mL 1% XYLOCAINE given in lab by Kurtis Akins in Right Groin via Subcutaneous. Ordered by Kurtis Sotelo. 16:13:22 Reason: As per physicians verbal order. 16:13:32 Vascular access was obtained in the Fem Vein (right). 16:13:46 A SHEATH, EPS, FR8 FAST CATH FR 8 was advanced into the Fem Vein (right) using the Percutan eous technique. A CATHETER, JSN, QUAD BUNDLE FR 5 was advanced vis Fem Vein (left) and placed in the CS. Placem ent was visually 16:14:20 confirmed under fluoroscopy. A CATHETER, JSN, QUAD BUNDLE FR 5 was advanced vis Fem Vein (left) and placed in the HIS. Plac ement was 16:14:36 visually confirmed under fluoroscopy. 16:18:09 CATHETER, ACUNAV FR10 ICE ([employer]) FR 10 Was Postioned. A SHEATH, FR8.5 STEERABLE SM 71CM BUNDLE 71CM was exchanged in the Fem Vein (right). This was necessary in 16:19:21 order for catheter support. 16:20:42 Av Needle inserted. 8000 units HEPARIN given in lab by Anesthesia, LEAD GENERATION SPECIALIST in Right Forearm via Peripheral IV. Ordere d by Kurtis Akins. 16:21:00 Reason: As per physicians verbal order. 16:21:35 A eps was advanced to the right atrium and passed through the septal wall to the left atri um. 16:27:37 Activated Clotting Time Drawn A CATHETER, FR7 OPTIMA SPIRAL BUNDLE FR7 was advanced vis Fem Vein (right) and placed in the L A. Placement 16:27:41 was visually confirmed under fluoroscopy. 16:29:08 Reference ECG taken 16:34:49 ACT (Normal Range 90-180) = 397 16:44:01 MAPPING IN PROGRESS 16:45:27 RF Ablation of the LT. ATRIUM with a CATHETER, TACTICATH ABLAT 65 BUNDLE. 16:57:50 ACT (Normal Range 90-180) = 422 17:04:23 ECG rhythm of AF noted. Patient cardioverted at 200 joules. Success SYNC 17:11:39 ECG rhythm of AF noted. Patient cardioverted at 200 joules. Success SYNC A SHEATH, FR9 ZUHAIR 11CM FR 9 was exchanged in the Fem Vein (right). This was necessary in or malgorzata to minimize 17:13:56 site leakage. 17:14:26 Catheter(s) removed without difficulty 17:14:28 Sheath(s) left in place, will be removed in Holding Area 17:14:33 Case End 17:14:34 Sterile dressing applied to site 17:14:35 No case complications noted. 17:14:36 Cine recording checked. 17:14:37 Bedside Report will be given. 17:14:42 PACU called. Spoke to CHANG 17:14:46 Defibrillator and ground pads removed. Skin intact. Assessment: Final Case, HR=64 BPM, Rhythm=SR, CJKC=865/62 mmhg, Chest Pain=0, Edema=None, [place] r=Normal, Skin = Warm, Dry Right Pulses: Chetan Ped=1 17:16:36 Left Pulses: Chetan Ped=1 Neurological: State=Alert, Ox3, RAWLS Respiration: Resp=18 B/min, SaT4=924 %, O2=4 lpm 17:33:04 [facility] Study - Contrast Media Used In Study Contrast Total Opened (mL) Total Used (mL) Total Wasted (mL) Unspecified 0 0 0 End Study - Maximum Contrast Load Max Contrast Load (mL) 589.1 End Study - Radiation Exposure Fluoro Time (minutes) 3.9 End Study - Patient Disposition Complications Transferred To Interventional Outcome No Telemetry Bed successful
[2016-08-29] MEDS ORDERED: AMIODARONE INJ 450 MG in D5W (EXCEL BAG) 241 ML IV SCH (17:30)
[2016-08-29] MEDS ORDERED: BACITRACIN OINT 0.9 GM PKT TOP ONE (17:30)
[2016-08-29] MEDS ORDERED: LIDOCAINE HCL 1% 50 ML VIAL INFIL PRN (17:30)
[2016-08-29] MEDS ORDERED: oxyCODONE/ACETAMINOPHEN 5 MG/325 MG TAB PO PRN ×2 (17:30)
[2016-08-29] MEDS ORDERED: ONDANSETRON HCL 4 MG/2 ML VIAL IV PRN (17:30)
[2016-08-29] MEDS ORDERED: LORazepam 2 MG/ML VIAL IV PRN (17:30)
[2016-08-29] MEDS ORDERED: SODIUM CHLOR 0.9% 250 ML INJ 250 ML IV PRN (17:30)
[2016-08-29] MEDS ORDERED: METOCLOPRAMIDE HCL 10 MG/2 ML VIAL IV PRN (17:30)
[2016-08-29] MEDS ORDERED: ATROPINE SULFATE 1 MG/ML VIAL IV PRN (17:30)
[2016-08-29] MEDS ORDERED: DO NOT ADM ANY ANTICOAGULANT DRUGS PRN (17:50)
[2016-08-29] MEDS ORDERED: *LABETALOL HCL 100 MG/20 ML VIAL PERIprocedural Use ONLY ONE (19:06)
[2016-08-29] MEDS: METOPROLOL TARTRATE 50 MG TAB PO SCH (21:28)
[2016-08-30] VITALS (27 sets, daily range): BP systolic 111–136; BP diastolic 54–86; PULSE 50–69; RESP 18–20; TEMP 97.2–98; O2SAT 100
[2016-08-30 05:54] LABS: APTT (PATIENT) 26.8 SEC (24.3-30.1); PROTHROMBIN TIME - PATIENT 10.7 SEC (9.8-11.6)
[2016-08-30 06:49] LABS: BICARBONATE 17.6 MEQ/L (21.0-32.0); POTASSIUM 3.4 MEQ/L (3.5-5.1)
--- NOTE | 2016-08-30 08:38 | HHI.PR ---
Subjective Remarks No new complaints. No chest pain. No palpitations. Objective Vitals Vital Signs Date Time Temp Pulse Resp B/P Pulse Ox O2 Delivery O2 Flow Rate FiO2 08/30/16 08:20 97.2 52 20 116/73 100 08/30/16 06:00 61 08/30/16 05:00 52 08/30/16 04:09 57 08/30/16 03:16 97.4 58 18 116/60 100 08/30/16 03:16 100 Room Air 08/30/16 03:00 60 08/30/16 02:00 56 08/30/16 01:00 54 08/30/16 00:00 62 08/29/16 23:03 97.6 63 18 130/76 98 08/29/16 23:03 98 Room Air 08/29/16 23:00 69 08/29/16 22:00 66 08/29/16 22:00 69 08/29/16 20:00 67 08/29/16 20:00 100 Room Air 08/29/16 20:00 98.1 69 18 158/92 100 Manual Cuff/Auscultation 08/29/16 19:55 97.5 67 16 155/83 100 Room Air 08/29/16 19:30 68 16 165/86 100 Room Air 08/29/16 19:15 70 16 173/95 100 Room Air 08/29/16 19:00 73 16 183/92 100 Room Air 08/29/16 18:45 97.5 69 16 176/94 100 Room Air 08/29/16 18:30 69 16 174/89 100 Room Air 08/29/16 18:15 65 16 160/93 100 Room Air 08/29/16 18:00 68 16 158/88 100 Room Air 08/29/16 17:50 97.6 69 16 156/80 100 Nasal Cannula 2 08/29/16 12:00 97.7 100 16 136/91 97 08/29/16 08/29/16 08/30/16 15:00 23:00 07:00 Intake Total 360 ml 500 ml 1200 ml Output Total 500 ml 75 ml Balance 360 ml 0 ml 1125 ml Intake Oral 360 ml 1200 ml IV Total 100 ml Other 400 ml Output Urine Total 450 ml 75 ml Estimated Blood Loss 50 ml # Voids 8 # Bowel Movements 1 Result Diagram: 08/30/16 0349 Imaging Last Impressions Chest X-Ray 08/22/16 9209 Signed Impressions: Service Date/Time: Monday, August 22, 2016 18:21 - CONCLUSION: No evidence of acute cardiopulmonary disease. Amrit Alvarez MD Objective Remarks GENERAL: This is a well-nourished, well-developed patient, in no apparent distress. CARDIOVASCULAR: Regular rate and rhythm without murmurs, gallops, or rubs. RESPIRATORY: Clear to auscultation. Breath sounds equal bilaterally. No wheezes , rales, or rhonchi. GASTROINTESTINAL: Abdomen soft, non-tender, nondistended. Normal active bowel sounds MUSCULOSKELETAL: Extremities without clubbing, cyanosis, or edema. NEURO: Alert & Oriented x4 to person, place, time, situation. Moves all ext x4 A/P Problem List: (1) New onset a-fib Status: Acute Plan: - Pt has longstanding htn - recently diagnosed with copd. says her fev1 was 45 and improved with rx to 60s - Pt was at pain clinic where she gets ELIF for Spinal stenosis - new onset afib/rvr - echo (08/24/16) --> EF 50-55%, mod TR, mild pulm HTN - Pt underwent EPS study with ablation performed by Dr. Akins (08/29/16) - telemetry: NSR/sinus kristofer - metoprolol, IV amiodarone - resume Eliquis when okay with Cardiology (2) Hyponatremia Status: Acute Plan: - recurrent hyponatremia - NA 121 (08/22/16), 135 (08/28/16), NA 129 (08/30/16) - obtain evaluation for SIADH: urine NA, urine CL, urine osmolality, serum osmolality - case d/w pt's PCP. Pt with recurrent hyponatremia on outpt labs - review of outpt labs since 06/2014 shows pt's NA varies between 126- 138 - volume with EPS?, IV amiodarone? - may need to repeat SIADH w/u in a few weeks (3) Hypokalemia Status: Acute Plan: - mild - replete - repeat BMP/Mag in AM (4) COPD (chronic obstructive pulmonary disease) Status: Chronic Plan: cont home inhalers (5) Spinal stenosis Status: Chronic Plan: - Neurontin - percocet prn (6) HTN (hypertension) Status: Chronic Problem Qualifiers (1) HTN (hypertension): Qualified Code: I10 - Essential hypertension Keenan Hernandez DO Aug 30, 2016 08:38
[2016-08-30] MEDS: DOCUSATE SODIUM 50 MG/SENNA 8.6 MG TAB PO SCH ×2 (09:00→20:20)
[2016-08-30] MEDS ORDERED: RESP: ALBUTEROL 2.5 MG/IPRATROPIUM 0.5 MG NEB (PRN) NEB (09:00)
[2016-08-30] MEDS: LACTOBACILLUS ACIDOPHILUS TAB PO SCH (09:38)
[2016-08-30] MEDS: METOPROLOL TARTRATE 50 MG TAB PO SCH ×2 (09:38→20:19)
[2016-08-30] MEDS: LISINOPRIL 20 MG TAB PO SCH (09:38)
[2016-08-30] MEDS: GABAPENTIN 300 MG CAP PO SCH ×2 (09:38→20:19)
[2016-08-30] MEDS: SODIUM CHLORIDE 0.9% FLUSH 10 ML FLUSH IV FLUSH SCH ×2 (09:39→11:31)
[2016-08-30] MEDS ORDERED: POTASSIUM CHLORIDE 20 MEQ CONTROLLED RELEASE TAB PO ONE (10:00)
--- NOTE | 2016-08-30 10:25 | PD.CARD.PN ---
Subjective Subjective Remarks PT without complaints Objective Medications Current Medications Medications (Trade) Dose Ordered Sig/Lucia Route Start Time Stop Time Status Last Admin (Neurontin) 600 mg BID PO 08/23/16 09:00 08/30/16 09:38 (Lactinex) 1 tab DAILY PO 08/23/16 09:00 08/30/16 09:38 Patient Own Medication PT OWN MED: 1 INH (62.5 M... DAILY INH 08/23/16 09:00 Hold (NS Flush) 2 ml UNSCH PRN IV FLUSH 08/22/16 21:45 (NS Flush) 2 ml BID IV FLUSH 08/23/16 09:00 08/30/16 09:39 (Narcan Inj) 0.4 mg UNSCH PRN IV 08/22/16 21:45 (Vanessa-Colace) 1 tab BID PO 08/23/16 09:00 08/23/16 08:12 (Milk Of Magnesia Liq) 30 ml Q12H PRN PO 08/22/16 21:45 (Senokot) 17.2 mg Q12H PRN PO 08/22/16 21:45 (Dulcolax Supp) 10 mg DAILY PRN RECTAL 08/22/16 21:45 (Lactulose Liq) 30 ml DAILY PRN PO 08/22/16 21:45 (Catapres) 0.1 mg Q6H PRN PO 08/23/16 00:45 08/29/16 19:00 (Prinivil) 20 mg DAILY PO 08/24/16 09:00 08/30/16 09:38 (Motrin) 400 mg Q6H PRN PO 08/23/16 11:15 08/25/16 21:54 Diphenhydramine HCl 25 mg 25 mg BID PRN PO 08/23/16 18:30 08/25/16 01:14 (Cordarone Inj/ D5W ([place]) Inj) 250 ml @ 0 mls/hr CONTINUOUS IV 08/29/16 17:30 08/29/16 18:17 (Percocet 5-325 Mg) 1 tab Q4H PRN PO 08/29/16 17:30 (Percocet 5-325 Mg) 2 tab Q4H PRN PO 08/29/16 17:30 (Ativan Inj) 0.5 mg UNSCH PRN IV 08/29/16 17:30 08/30/16 17:29 Atropine Sulfate 0.5 mg 0.5 mg UNSCH PRN IV 08/29/16 17:30 (NS 250 ml Inj) 250 ml @ 500 mls/hr ONCE PRN IV 08/29/16 17:30 08/30/16 17:29 (Reglan Inj) 10 mg Q4H PRN IV 08/29/16 17:30 (Zofran Inj) 4 mg Q4H PRN IV 08/29/16 17:30 (Xylocaine 1% Inj (50 ml)) 10 ml UNSCH PRN INFIL 08/29/16 17:30 08/30/16 17:29 (Lopressor) 50 mg BID PO 08/29/16 21:00 08/30/16 09:38 Miscellaneous Information ALL NURSING DEPARTME... UNSCH PRN .XX 08/29/16 17:50 08/30/16 17:49 Vital Signs / I&O Vital Signs Date Time Temp Pulse Resp B/P Pulse Ox O2 Delivery O2 Flow Rate FiO2 08/30/16 08:20 97.2 52 20 116/73 100 08/30/16 07:00 61 08/30/16 06:00 61 08/30/16 05:00 52 08/30/16 04:09 57 08/30/16 03:16 97.4 58 18 116/60 100 08/30/16 03:16 100 Room Air 08/30/16 03:00 60 08/30/16 02:00 56 08/30/16 01:00 54 08/30/16 00:00 62 08/29/16 23:03 97.6 63 18 130/76 98 08/29/16 23:03 98 Room Air 08/29/16 23:00 69 08/29/16 22:00 66 08/29/16 22:00 69 08/29/16 20:00 67 08/29/16 20:00 100 Room Air 08/29/16 20:00 98.1 69 18 158/92 100 Manual Cuff/Auscultation 08/29/16 19:55 97.5 67 16 155/83 100 Room Air 08/29/16 19:30 68 16 165/86 100 Room Air 08/29/16 19:15 70 16 173/95 100 Room Air 08/29/16 19:00 73 16 183/92 100 Room Air 08/29/16 18:45 97.5 69 16 176/94 100 Room Air 08/29/16 18:30 69 16 174/89 100 Room Air 08/29/16 18:15 65 16 160/93 100 Room Air 08/29/16 18:00 68 16 158/88 100 Room Air 08/29/16 17:50 97.6 69 16 156/80 100 Nasal Cannula 2 08/29/16 12:00 97.7 100 16 136/91 97 I/O 08/29/16 08/29/16 08/29/16 08/30/16 08/30/16 08/30/16 07:00 15:00 23:00 07:00 15:00 23:00 Intake Total 360 ml 500 ml 1200 ml Output Total 300 ml 500 ml 75 ml Balance -300 ml 360 ml 0 ml 1125 ml Intake Oral 360 ml 1200 ml IV Total 100 ml Other 400 ml Output Urine Total 300 ml 450 ml 75 ml Estimated Blood Loss 50 ml # Voids 8 # Bowel Movements 0 1 Physical Exam GENERAL: Well developed, well nourished. No acute distress. HEENT: Jugular venous pressure is normal. CHEST: Lungs clear to auscultation bilaterally. Unlabored respiratory effort. CARDIAC: Regular rate and rhythm without S3, S4, or murmur. ABDOMEN: Soft, nontender, no hepatosplenomegaly. Bowel sounds present. EXTREMITIES: No clubbing, cyanosis, or edema. bilat groin c/d/i no significant e /h 2+_ DP Laboratory Laboratory Tests Test 08/30/16 03:49 Prothrombin Time 10.7 SEC Prothromb Time International 1.0 RATIO Ratio Activated Partial 26.8 SEC Thromboplast Time Sodium Level 129 MEQ/L Potassium Level 3.4 MEQ/L Chloride Level 99 MEQ/L Carbon Dioxide Level 17.6 MEQ/L Anion Gap 12 MEQ/L Blood Urea Nitrogen 16 MG/DL Creatinine 0.73 MG/DL Estimat Glomerular Filtration 79 ML/MIN Rate Random Glucose 149 MG/DL Calcium Level 7.6 MG/DL Assessment and Plan Problem List: (1) New onset a-fib Assessment and Plan: AF - s/p ablation, doing great change IV amio to PO restart eliquis hyponatremia- per primary Mindi De La Rosa MD Aug 30, 2016 10:25
[2016-08-30] MEDS: AMIODARONE 200 MG TAB PO SCH ×2 (11:31→20:19)
--- NOTE | 2016-08-30 11:59 | EKG ---
Date Performed: 08/29/2016 Time Performed: 18:40:12 PTAGE: 70 years EKG: Sinus rhythm WITH MARKED SINUS ARRHYTHMIA Compared to previous tracing, the patient is now in normal sinus rhythm . BORDERLINE ECG PREVIOUS TRACING : 08/22/2016 19.43 DOCTOR: Dusty Busby Interpretating Date/Time 08/30/2016 11:59:05
[2016-08-30] MEDS: IBUPROFEN 400 MG TAB PO PRN (17:59)
[2016-08-31] VITALS (26 sets, daily range): BP systolic 107–160; BP diastolic 45–95; PULSE 52–81; RESP 18–20; TEMP 97.8–98.7; O2SAT 98–100
[2016-08-31 06:15] LABS: BICARBONATE 19.5 MEQ/L (21.0-32.0); MAGNESIUM 1.9 MG/DL (1.5-2.5); POTASSIUM 3.9 MEQ/L (3.5-5.1)
[2016-08-31] MEDS ORDERED: SODIUM CHLOR 0.9% IV SCH (07:30)
[2016-08-31] MEDS ORDERED: SODIUM CHLORIDE IV SCH (07:30)
[2016-08-31] MEDS: SODIUM CHLORIDE 0.9% FLUSH 10 ML FLUSH IV FLUSH SCH ×2 (08:24→21:00)
[2016-08-31] MEDS: LISINOPRIL 20 MG TAB PO SCH (08:25)
[2016-08-31] MEDS: DOCUSATE SODIUM 50 MG/SENNA 8.6 MG TAB PO SCH ×2 (08:25→21:00)
[2016-08-31] MEDS: LACTOBACILLUS ACIDOPHILUS TAB PO SCH (08:25)
[2016-08-31] MEDS: METOPROLOL TARTRATE 50 MG TAB PO SCH ×2 (08:25→21:38)
[2016-08-31] MEDS: GABAPENTIN 300 MG CAP PO SCH ×2 (08:25→21:39)
[2016-08-31] MEDS: AMIODARONE 200 MG TAB PO SCH ×2 (08:25→21:38)
--- NOTE | 2016-08-31 15:01 | HHI.PR ---
Subjective Remarks No new complaints. Objective Vitals Vital Signs Date Time Temp Pulse Resp B/P Pulse Ox O2 Delivery O2 Flow Rate FiO2 08/31/16 13:00 68 08/31/16 12:00 62 08/31/16 11:00 72 08/31/16 11:00 97.8 62 20 136/72 98 08/31/16 10:00 68 08/31/16 09:00 70 08/31/16 08:17 98.7 60 18 154/87 100 08/31/16 08:00 60 08/31/16 08:00 96 Room Air 08/31/16 07:00 58 08/31/16 07:00 72 08/31/16 06:01 60 08/31/16 05:00 64 08/31/16 04:00 98.6 59 20 112/45 100 08/31/16 04:00 58 08/31/16 03:01 56 08/31/16 02:00 63 08/31/16 01:00 63 08/31/16 00:00 98.2 52 18 107/46 100 08/31/16 00:00 60 08/30/16 23:00 57 08/30/16 22:00 56 08/30/16 21:00 60 08/30/16 20:00 98.0 69 18 111/54 100 08/30/16 20:00 58 08/30/16 20:00 100 Room Air 08/30/16 19:00 66 08/30/16 18:01 54 08/30/16 17:00 56 08/30/16 16:00 58 08/30/16 15:00 97.6 58 18 119/71 100 08/30/16 15:00 52 08/30/16 08/30/16 08/31/16 15:00 23:00 07:00 Intake Total 1135 ml 420 ml Output Total 1400 ml 1000 ml Balance -265 ml -580 ml Intake Oral 1100 ml 420 ml IV Total 35 ml Output Urine Total 1400 ml 1000 ml Result Diagram: 08/31/16 0505 Imaging Last Impressions Chest X-Ray 08/22/161813 Signed Impressions: Service Date/Time: Monday, August 22, 2016 18:21 - CONCLUSION: No evidence of acute cardiopulmonary disease. Amrit Alvarez MD Objective Remarks GENERAL: This is a well-nourished, well-developed patient, in no apparent distress. CARDIOVASCULAR: Regular rate and rhythm without murmurs, gallops, or rubs. RESPIRATORY: Clear to auscultation. Breath sounds equal bilaterally. No wheezes , rales, or rhonchi. GASTROINTESTINAL: Abdomen soft, non-tender, nondistended. Normal active bowel sounds MUSCULOSKELETAL: Extremities without clubbing, cyanosis, or edema. NEURO: Alert & Oriented x4 to person, place, time, situation. Moves all ext x4 A/P Problem List: (1) New onset a-fib Status: Acute Plan: - Pt has longstanding htn - recently diagnosed with copd. says her fev1 was 45 and improved with rx to 60s - Pt was at pain clinic where she gets ELIF for Spinal stenosis - new onset afib/rvr - echo (08/24/16) --> EF 50-55%, mod TR, mild pulm HTN - Pt underwent EPS study with ablation performed by Dr. Akins (08/29/16) - telemetry: NSR/sinus kristofer - metoprolol PO amiodarone - resume Eliquis (2) Hyponatremia Status: Acute Plan: - recurrent hyponatremia - review of outpt labs since 06/2014 shows pt's NA varies between 126- 138 - case d/w pt's PCP. Pt with recurrent hyponatremia on outpt labs - unclear etiology - low urine osmolarity and low urine sodium so does NOT fit criteria for SIADH - NA 121 (08/22/16), 135 (08/28/16), NA 129 (08/30/16), 123 (08/31/16) - 2% NACL x 5hours - request Nephrology consult - repeat BMP this afternoon and in AM (3) Hypokalemia Status: Acute Plan: - resolved (4) COPD (chronic obstructive pulmonary disease) Status: Chronic Plan: cont home inhalers (5) Spinal stenosis Status: Chronic Plan: - Neurontin - percocet prn (6) HTN (hypertension) Status: Chronic Problem Qualifiers (1) HTN (hypertension): Qualified Code: I10 - Essential hypertension Keenan Hernandez DO Aug 31, 2016 15:01
[2016-08-31 18:03] LABS: BICARBONATE 22.2 MEQ/L (21.0-32.0); POTASSIUM 3.7 MEQ/L (3.5-5.1)
--- NOTE | 2016-08-31 18:27 | EKG ---
Date Performed: 08/30/2016 Time Performed: 06:49:06 PTAGE: 70 years EKG: Sinus bradycardia Prolonged QT interval Borderline ECG PREVIOUS TRACING : 08/29/2016 18.40 Compared to prior tracing no significant change DOCTOR: Dusty Busby Interpretating Date/Time 08/31/2016 18:25:18
--- NOTE | 2016-08-31 19:50 | MB ---
cc: HOLLIE LAYNE MD DATE OF CONSULTATION: 08/31/2016. REASON FOR CONSULTATION: Hyponatremia, recurrent, for evaluation. HISTORY OF PRESENT ILLNESS: This is a 70-year-old female with past medical history of breast cancer, hypertension, hyperlipidemia, mitral valve prolapse gastroesophageal reflux disease, history of Meniere's disease who was admitted with complaint of new onset atrial fibrillation with rapid ventricular rate and severe hyponatremia. I was called to see the patient because of recurrent hyponatremia. The patient claims that her appetite has been normal. She admits that she has been drinking more fluid. There is no history of nausea or vomiting. She just had loose bowel motions today after she was given hypertonic saline, which has been stopped now. Her sodium was 123 this morning and that has increased to 130 after the saline. The patient has no nausea or vomiting. Her appetite has been normal. She was seen by the cardiology. Echocardiogram was done which shows the ejection fraction was 50% to 55%. Her heart rate has been controlled now. The patient underwent an ablation procedure. She denies any shortness of breath. No chest pain. PAST MEDICAL HISTORY: 1. History of breast cancer. 2. Mitral valve prolapse. 3. Hypertension. 4. New-onset atrial fibrillation. 5. Gastroesophageal reflux disease (GERD). 6. Hyperlipidemia. PAST SURGICAL HISTORY: 1. History of abdominal surgery. 2. Appendectomy. 3. Spinal cord implant stimulator. 4. Left breast lumpectomy. REVIEW OF SYSTEMS: Denies any headache, dizziness or blurring of vision. No shortness of breath. No chest pain. No palpitations. No nausea, vomiting. No abdominal pain. She just had loose bowel motion today. Usually she does not have any diarrhea. No dysuria or hematuria. SOCIAL HISTORY: There is no history of smoking or alcoholism. ALLERGIES: 1. DARVON. 2. ERYTHROMYCIN. 3. PENICILLIN. 4. SIMVASTATIN. 5. LEVAQUIN. MEDICATIONS: Currently she is on the following medications. 1. Gabapentin 600 milligrams twice a day. 2. Vanessa-Colace one tablet twice a day. 3. Metoprolol 50 milligrams twice a day. 4. Eliquis 5 milligrams twice a day. 5. Lactinex one tablet daily. 6. Lisinopril 20 milligrams once a day. 7. Amiodarone 200 milligrams once a day and 400 milligrams q. 12 hours. 8. Narcan as needed. 9. Senokot as needed. 10. Dulcolax as needed. 11. Percocet as needed. PHYSICAL EXAMINATION: GENERAL: On examination, the patient is awake and alert and she is sitting in the chair no acute distress. VITAL SIGNS: Her last blood pressure was 158/95, temperature is 97.9, oxygen saturation is 100% on room air. HEAD, EYES, EARS, NOSE, THROAT: The pupils are equal and reacting to light. Nonicteric sclerae. Conjunctivae are normal. NECK: The neck is supple. JVD is not elevated. LUNGS: The patient has bilateral good air entry with occasional wheezing. HEART: S1 and S2 regular rhythm. ABDOMEN: Abdomen soft and lax. There is no tenderness. Bowel sounds positive. EXTREMITIES: There is no pedal edema. INVESTIGATIONS: White blood cell count is 7.8, hemoglobin 12.0, platelet count of 303,000. Neutrophils 84.7%. Sodium 130, potassium 3.7, chloride 99, bicarbonate 82.2, BUN 15, creatinine 0.7, calcium 8.6. Her sodium was 123 this morning. INR is 1.0. Urine sodium is 13 and urine osmolality is 256. Her urine specific gravity is also on the lower side. IMAGING STUDIES: The patient has chest x-ray done on admission which shows lung tamayo clear. ASSESSMENT AND PLAN: 1. Hyponatremia. 2. Hypertension 3. New-onset atrial fibrillation 4. Chronic obstructive pulmonary disease. 5. Spinal stenosis. 6. Hypokalemia. The patient has recurrent hyponatremia and has low urine sodium and low urine specific gravity. Most likely the hyponatremia is due to excessive fluid intake. I discussed with the patient and told her to restrict her free water intake. Her thyroid function is normal. Clinically she is euvolemic. She is not in fluid overload status. If her sodium remains low, then will consider giving her a salt tablet. Thank you for the consultation, and I will follow the patient while she is in the hospital. MD RICHARD Lockwood/SHILO /6:30 PM /7:43 PM
[2016-08-31] MEDS: APIXABAN 5 MG TABLET PO SCH (21:38)
[2016-09-01] VITALS (11 sets, daily range): BP systolic 168–176; BP diastolic 89–92; PULSE 60–72; RESP 16; TEMP 98.5–98.7; O2SAT 93–99
[2016-09-01] MEDS ORDERED: LOPERAMIDE HCL 2 MG CAP PO PRN (03:15)
[2016-09-01 05:09] LABS: AUTOMATED NEUTROPHIL # 6.4 TH/MM3 (1.8-7.7); BASOPHIL % 0.1 % (0.0-2.0); EOSINOPHIL # 0.1 TH/MM3 (0-0.4); EOSINOPHIL % 0.8 % (0.0-4.0); HEMATOCRIT 27.5 % (35.0-46.0); HEMO FLAGS DIFF FINAL; LYMPH % 5.2 % (9.0-44.0); LYMPHOCYTE # 0.4 TH/MM3 (1.0-4.8); MEAN CELL VOLUME 102.3 FL (80.0-100.0); MEAN CORPUSCULAR HEMOGLOBIN 35.9 PG (27.0-34.0); MEAN CORPUSCULAR HGB CONC 35.1 % (32.0-36.0); MONO % 9.8 % (0.0-8.0); NEUT % 84.1 % (16.0-70.0); PLATELET COUNT 223 TH/MM3 (150-450); RED BLOOD COUNT 2.68 MIL/MM3 (4.00-5.30); RED CELL DISTRIBUTION WIDTH 12.8 % (11.6-17.2); WHITE BLOOD COUNT 7.6 TH/MM3 (4.0-11.0)
[2016-09-01 05:28] LABS: BICARBONATE 20.3 MEQ/L (21.0-32.0); MAGNESIUM 2.3 MG/DL (1.5-2.5); POTASSIUM 3.6 MEQ/L (3.5-5.1)
[2016-09-01] MEDS: AMIODARONE 200 MG TAB PO SCH (08:25)
[2016-09-01] MEDS: LISINOPRIL 20 MG TAB PO SCH (08:25)
[2016-09-01] MEDS: APIXABAN 5 MG TABLET PO SCH (08:26)
[2016-09-01] MEDS: METOPROLOL TARTRATE 50 MG TAB PO SCH (08:26)
[2016-09-01] MEDS: SODIUM CHLORIDE 0.9% FLUSH 10 ML FLUSH IV FLUSH SCH (08:26)
[2016-09-01] MEDS: GABAPENTIN 300 MG CAP PO SCH (08:26)
--- NOTE | 2016-09-01 08:53 | HHI.PR ---
Subjective Remarks wants to go home. feels great. Objective Vitals heart reg lung cta abd s/nt ext no edema Vital Signs Date Time Temp Pulse Resp B/P Pulse Ox O2 Delivery O2 Flow Rate FiO2 09/01/16 08:00 72 09/01/16 07:37 93 21 09/01/16 07:00 98.5 64 16 168/89 99 09/01/16 07:00 69 09/01/16 06:00 72 09/01/16 05:00 68 09/01/16 04:00 63 09/01/16 03:00 60 09/01/16 03:00 98.7 65 16 176/92 99 09/01/16 02:00 64 09/01/16 01:00 60 09/01/16 00:00 70 08/31/16 23:00 98.6 73 20 160/85 100 08/31/16 23:00 76 08/31/16 22:00 70 08/31/16 21:00 72 08/31/16 20:00 70 08/31/16 19:00 98.2 72 20 158/89 98 08/31/16 19:00 72 08/31/16 18:00 81 08/31/16 17:00 74 08/31/16 16:00 68 08/31/16 15:30 97.9 60 18 150/95 100 08/31/16 15:00 74 08/31/16 14:00 60 08/31/16 13:00 68 08/31/16 12:00 62 08/31/16 11:00 72 08/31/16 11:00 97.8 62 20 136/72 98 08/31/16 10:00 68 08/31/16 09:00 70 08/31/16 08/31/16 09/01/16 14:59 22:59 06:59 Intake Total 1030 ml 480 ml Output Total 1005 ml 1100 ml Balance 25 ml -620 ml Intake Oral 780 ml 480 ml IV Total 250 ml Output Urine Total 1000 ml 1100 ml Stool Total 5 ml Result Diagram: 09/01/16 0342 09/01/16 0343 Imaging Last Impressions Chest X-Ray 08/22/16 1814 Signed Impressions: Service Date/Time: Monday, August 22, 2016 18:21 - CONCLUSION: No evidence of acute cardiopulmonary disease. Amrit Alvarez MD A/P Problem List: (1) New onset a-fib Status: Acute Plan: - Pt has longstanding htn - recently diagnosed with copd. says her fev1 was 45 and improved with rx to 60s - Pt was at pain clinic where she gets [facility] for Spinal stenosis - new onset afib/rvr - echo (08/24/16) --> EF 50-55%, mod TR, mild pulm HTN - Pt underwent EPS study with ablation performed by Dr. Akins (08/29/16) - telemetry: NSR/sinus kristofer - metoprolol PO amiodarone - resume Eliquis (2) Hyponatremia Status: Acute Plan: - recurrent hyponatremia - review of outpt labs since 06/2014 shows pt's NA varies between 126- 138 - case d/w pt's PCP. Pt with recurrent hyponatremia on outpt labs - low urine osmolarity and low urine sodium so does NOT fit criteria for SIADH - request Nephrology consulted na stable. give nacl tab and recheck with pcp f/u free fluid restrict. (3) Hypokalemia Status: Acute Plan: - resolved (4) COPD (chronic obstructive pulmonary disease) Status: Chronic Plan: cont home inhalers (5) Spinal stenosis Status: Chronic Plan: - Neurontin - percocet prn (6) HTN (hypertension) Status: Chronic Problem Qualifiers (1) HTN (hypertension): Qualified Code: I10 - Essential hypertension Billy Hough MD Sep 01, 2016 08:53
[2016-09-01] MEDS ORDERED: METO50TA PO (08:59)
[2016-09-01] MEDS ORDERED: AMIO200T PO (08:59)
[2016-09-01] MEDS ORDERED: SODI1TAB PO (08:59)
[2016-09-01] MEDS ORDERED: LISI40TA PO (09:00)
[2016-09-01] MEDS ORDERED: SODIUM CHLORIDE 1 GRAM TAB PO ONE (09:15)
[2016-09-05] MEDS ORDERED: AMIODARONE 200 MG TAB PO SCH (09:00)
--- NOTE | 2016-09-13 16:13 | PD.CARD ---
Atrial Fibrillation Ablation PROCEDURE DATE: Aug 29, 2016 PROCEDURES PERFORMED: 1. Electrophysiology study on Isuprel infusion 2. CS cannulation 3. 3-D mapping 4. Transseptal approach 5. Right and left heart catheterization 6. Intracardiac echo 7. Radiofrequency ablation of atrial fibrillation 8. Pulmonary vein isolation 9. Posterior wall ablation 10. Mitral valve isolation 11. Mitral line creation 12. Left atrial tachycardia ablation 13. Roof line creation 14. Floor line creation 15. Anterior wall ablation 16. Cardioversion INDICATIONS FOR THE PROCEDURE Ms. Gambino is a 70-year-old female with atrial fibrillation, congestive hear failure, very symptomatic, heart rate difficult to control referred for electrophysiology study and ablation. The patient is symptomatic and on anticoagulation. The risks, the nature and the benefits of the procedure were clearly stated to her. The risks include pneumothorax, cardiac perforation, stroke, need for open heart surgery and even . The patient understood and agreed to proceed. DESCRIPTION OF THE PROCEDURE IN DETAIL As written informed consent was obtained prior to esophageal echocardiogram, the patient was kept on the table where she was prepped and draped in the usual sterile fashion. Conscious sedation was initiated and maintained throughout the procedure by the anesthesiologist. Once sedation was verified, the right and left inguinal areas were anesthetized with 2% Xylocaine. Using modified Seldinger technique, the left femoral vein was cannulated on three occasions, three guidewires were advanced. Over the wire a 6, 7 and a 10-[place] Hemaquet were advanced. Then the left femoral artery was cannulated on one occasion, one guidewire was advanced. Over the wire a 4-[place] Hemaquet was advanced. Then the right femoral vein was cannulated on one occasion, one guidewire was advanced. Over the wire a 8-[place] Hemaquet was advanced. Then under fluoroscopic guidance through the 6 and 7-[place] Hemaquet, two 5-[place] Jamar curved quadripolar electrophysiology catheters were advanced and placed around the His as well as coronary sinus. Basic interval was measured. The patient was in atrial fibrillation. Through the 10-[place] Hemaquet, a Cordis Eng AcuNav intracardiac echo catheter was advanced and placed at the right atrium. Multiple view was obtained. There is no pericardial effusion, pulmonary vein was seen, atrial septal was visualized. Left atrium is severely enlarged. Then the 8-[place] Hemaquet in the right femoral vein was exchanged for Agilis transseptal sheath that was placed all the way to the superior vena cava. Through the sheath a Nish needle was advanced, then the sheath, the dilator and the needle were progressed until foci engaged. Once engaged, the needle was advanced. RF was delivered for 2 seconds. I was able to cross into the left atrium. Once the needle crossed, the dilator was advanced. Once the dilator crossed, the sheath was advanced. Once the sheath crossed, the dilator and the needle were removed. At this point I did flood the system and fluid movement was seen in the left atrium the indicates the sheath is in good position. The patient already received 10,000 units of heparin. The goal is to keep an ACT around 350 during ablation. Then through the sheath a St. Andrés 20 pulse circumferential catheter was advanced. Using Tailored endocardial solution mapping system, a two-dimensional configuration of the left atrium was obtained. Points were taken at the left superior and inferior veins, right superior and inferior veins, mitral valve, and appendages. Then through the sheath a St. Andrés TactiCath 65cm 3.5mm irrigated tipped mapping and radiofrequency ablation catheter was advanced. Esophageal probe was placed temperature monitoring during ablation. When it increased to 0.5 degrees Celsius above baseline, I moved to a different area of the atrium. First I did isolate the left superior and inferior vein. I did make a big [place] around the veins. Posterior was ablated. Then a roof line was created, a floor line was created, a mitral line was isolated, then the mitral valve was isolated.The right inferior and superior veins were isolated. At that point the patient was in left atrial tachycardia. I did create a line from the floor to the roof area, passing by the left atrial appendage. Then the right superior and inferior veins were isolated. I did remap the atrium. There is no significant signal in the atrium. The left atrium is severely enlarged. At this point I decided to proceed with cardioversion. A 200 sync biphasic joule was delivered that converted the patient into sinus rhythm. At that point I did advance the circumferential catheter again into the vein. There was no signal into the vein, pacing from the vein showed no conduction to the atrium. Patient back in left atrial tach. Amio bolus was given. At that point the procedure was complete. All catheters were removed, atrial septal sheath was exchanged for 9-D[place]ib[place]ian Hemaquet , intracardiac echo showed no pericardial effusion. There is still good flow in the pulmonary vein. The patient is going to be transferred to the recovery room. No incident report. The patient tolerated the procedure. Blood loss was minimal. FINDINGS 1. Electrocardiogram: At baseline the patient was in atrial fibrillation, post procedure the patient was in sinus rhythm. 2. Basic interval: Base cycle length was around 410. Post ablation she was around 840 milliseconds. 3. Tachyarrhythmia: Atrial fibrillation was mapped and ablated. Atrial tachycardia was ablated. The ablation was successful. CONCLUSION Successful electrophysiology study, mapping, radiofrequency ablation of atrial fibrillation, left atrial tachycardia, pulmonary vein isolation, posterior ablation, mitral valve isolation, mitral line creation, roof line creation, floor line creation, left atrial tachycardia, and cardioversion. COMMENTS AND RECOMMENDATIONS The patient is going to be transferred to the telemetry unit. Will be observed and when stable can be discharged home. Echo will be repeated in 2 months . If EF still low, will need ICD implantation. Kurtis Akins MD Sep 13, 2016 16:13
== END 2016-09-01 10:15 | disposition home or self-care (01) | DRG 274 ==
LOC: NEPE 17:17 → NEDA 20:08 → N04A 21:38 → HCIS 08-29 17:17 → HCIN 08-29 20:03
PROVIDERS: ADMIT Hospitalist; ATTEND Hospitalist
PROC: 4A023N8 Measurement of Cardiac Sampling and Pressure, Bilateral, Percutaneous Approach (ICD-10-PCS; 2016-08-29)
PROC: B2161ZZ Fluoroscopy of Right and Left Heart using Low Osmolar Contrast (ICD-10-PCS; 2016-08-29)
PROC: 4A023FZ Measurement of Cardiac Rhythm, Percutaneous Approach (ICD-10-PCS; 2016-08-29)
PROC: 4A0234Z Measurement of Cardiac Electrical Activity, Percutaneous Approach (ICD-10-PCS; 2016-08-29)
PROC: 02K83ZZ Map Conduction Mechanism, Percutaneous Approach (ICD-10-PCS; 2016-08-29)
PROC: B244ZZZ Ultrasonography of Right Heart (ICD-10-PCS; 2016-08-29)
PROC: 5A2204Z Restoration of Cardiac Rhythm, Single (ICD-10-PCS; 2016-08-29)
PROC: 02583ZZ Destruction of Conduction Mechanism, Percutaneous Approach (ICD-10-PCS; principal; 2016-08-29 14:30)
DX: I48.91 Unspecified atrial fibrillation (principal); E87.1 Hypo-osmolality and hyponatremia; I47.2 Ventricular tachycardia; I27.2 Other secondary pulmonary hypertension; I49.5 Sick sinus syndrome; J44.9 Chronic obstructive pulmonary disease, unspecified; I08.1 Rheumatic disorders of both mitral and tricuspid valves; E87.6 Hypokalemia; I10 Essential (primary) hypertension; E78.5 Hyperlipidemia, unspecified; M19.90 Unspecified osteoarthritis, unspecified site; M48.00 Spinal stenosis, site unspecified; K21.9 Gastro-esophageal reflux disease without esophagitis; Z85.3 Personal history of malignant neoplasm of breast; Z88.0 Allergy status to penicillin; Z88.1 Allergy status to other antibiotic agents; Z88.5 Allergy status to narcotic agent
CPT/HCPCS: 71010; 80048; 80053; 82436; 82550; 82552; 82607; 83735; 83930; 83935; 84295; 84300; 84439; 84443; 84484; 85002; 85025; 85379; 85610; 85730; 93005; 93306; 93312; 93320; 93325; 93613; 93623; 93656; 93662; 96374; C1730; C1731; C1732; C1759; C1766; C2630; J0282; J1650; J3370; J3480; J7030; J7050; J7060

== ENCOUNTER 2016-10-09 14:58 | Day surgery (SDC) | payer MEDICARE ==
[~2016-10-09 14:58] MED LIST changes: +AMIO200T PO; +APIX5TAB PO; -DIAZ5 PO; -DIPH2%T PO; -DOXA1 PO; +LACTCAP8 PO; -METO100T PO; +METO50TA PO; -NAPR220T95 PO; -PROBCAP4 PO; +PROPOFOL 200 MG/20 ML AMP IV ONE; +SODI1TAB PO; +UMEC1INH INH; -ZOLE5INJ INJ
[2016-10-09] MEDS ORDERED: POVIDONE IODINE 5% (ANTISEPSIS KIT) 4 APPLICATIONS EACH NARE PRN (16:15)
[2016-10-09] MEDS ORDERED: METOPROLOL TARTRATE 25 MG TAB PO PRN (16:15)
[2016-10-09] MEDS ORDERED: SODIUM CHLORID 0.9% 500 ML IV PRN (16:15)
[2016-10-09] MEDS ORDERED: INSULIN HUMAN REGULAR 1,000 UNITS/10 ML VIAL SQ PRN (16:15)
[2016-10-09] MEDS ORDERED: LACTATED RINGER'S 1000 ML IV PRN (16:15)
[2016-10-09] MEDS ORDERED: CHLORHEXIDINE GLUCONATE 2 % 1 PACK (2 CLOTHS) TOPICAL PRN (16:15)
--- NOTE | 2016-10-09 23:28 | MA ---
cc: QUINN FARMER M.D. DATE 10/09/16 PROCEDURE Cardioversion. HISTORY Mrs. Gambino is a 70-year-old female, atrial fibrillation on multiple medication, previous ablation, will undergo cardioversion. CONSENT FOR PROCEDURE The risks, the nature and the benefit of the procedure are clearly stated to her. The risks include cardiac arrest, need for endotracheal intubation and even . She understood and agreed to proceed. PROCEDURE IN DETAIL After written informed consent was obtained, the patient was evaluated by anesthesiologist. Once sedation verified, anterolateral pads were placed. Subsequently a 200 sync biphasic joule delivered that converted the patient into sinus rhythm. No incident report. The patient tolerated the procedure. CONCLUSION Successful cardioversion. COMMENT/RECOMMENDATIONS The patient going to be discharged home. Medication will be modified. Will be followed as an outpatient. Quinn Farmer MD HS/EO /5:56 PM /11:22 PM
--- NOTE | 2016-10-11 01:11 | EKG ---
Date Performed: 10/09/2016 Time Performed: 16:17:22 PTAGE: 70 years EKG: Atrial fibrillation Abnormal ECG PREVIOUS TRACING : 08/30/2016 06.49 Compared to the previous tracing, previously in normal Sinu s rhythm DOCTOR: Maurice Henry Interpretating Date/Time 10/11/2016 01:10:34
== END 2016-10-09 18:50 | disposition home or self-care (01) ==
LOC: HBDO 14:58 → HDIC 14:59 → HBDO 18:50
PROVIDERS: ATTEND Internal Medicine Interventional Cardiology
DX: I48.91 Unspecified atrial fibrillation (principal); I10 Essential (primary) hypertension
CPT/HCPCS: 92960; 93005

== ENCOUNTER 2017-05-14 12:45 | Day surgery (SDC) | payer MEDICARE ==
[~2017-05-14] VITALS: Ht 165.1 cm; Wt 52.8 kg
[2017-05-14] VITALS (8 sets, daily range): BP systolic 152–196; BP diastolic 87–127; PULSE 74–107; RESP 17–18; TEMP 96.9–98; O2SAT 96–100
[~2017-05-14 12:45] MED LIST changes: +DEXAMETHASONE SOD PHOS 4 MG/ML VIAL IV ONE; +LABETALOL HCL 100 MG/20 ML VIAL IV ONE; +LIDOCAINE HCL 1% PF 5 ML SYRINGE OTHER ONE; +ONDANSETRON HCL 4 MG/2 ML VIAL IV ONE; +PHENYLEPH/NS 1000 MCG/10 ML SYR IV ONE; +ROCURONIUM INJ 50 MG/5 ML SYRINGE IV PUSH ONE; +ePHEDrine/NS 25 MG/5 ML SYRINGE IV ONE
[2017-05-14] MEDS ORDERED: KLOR20TA3 PO (13:40)
[2017-05-14] MEDS ORDERED: DIPH25CA PO (13:40)
[2017-05-14] MEDS ORDERED: DIAZ10TA PO (13:40)
[2017-05-14] MEDS ORDERED: METO50TA PO (13:40)
[2017-05-14] MEDS ORDERED: ACET-822 PO (13:40)
[2017-05-14] MEDS ORDERED: LEVO50TA4 PO (13:40)
[2017-05-14] MEDS ORDERED: FURO1TAB60 PO (13:40)
[2017-05-14 14:08] LABS: AUTOMATED NEUTROPHIL # 2.8 TH/MM3 (1.8-7.7); BASOPHIL # 0.1 TH/MM3 (0-0.2); BASOPHIL % 1.4 % (0.0-2.0); EOSINOPHIL # 0.1 TH/MM3 (0-0.4); EOSINOPHIL % 3.2 % (0.0-4.0); HEMATOCRIT 36.2 % (35.0-46.0); HEMOGLOBIN 12.4 GM/DL (11.6-15.3); LYMPH % 27.5 % (9.0-44.0); LYMPHOCYTE # 1.3 TH/MM3 (1.0-4.8); MEAN CELL VOLUME 108.2 FL (80.0-100.0); MEAN CORPUSCULAR HEMOGLOBIN 36.9 PG (27.0-34.0); MEAN CORPUSCULAR HGB CONC 34.1 % (32.0-36.0); MEAN PLATELET VOLUME 7.9 FL (7.0-11.0); MONO % 9.1 % (0.0-8.0); MONOCYTE # 0.4 TH/MM3 (0-0.9); NEUT % 58.8 % (16.0-70.0); PLATELET COUNT 275 TH/MM3 (150-450); RED BLOOD COUNT 3.35 MIL/MM3 (4.00-5.30); RED CELL DISTRIBUTION WIDTH 13.3 % (11.6-17.2); WHITE BLOOD COUNT 4.7 TH/MM3 (4.0-11.0)
[2017-05-14] MEDS ORDERED: PROTAMINE SULFATE 50 MG/5 ML VIAL ONE (14:09)
[2017-05-14] MEDS ORDERED: HEPARIN-D5W 25,000 U/250 ML 250 ML ONE (14:09)
[2017-05-14] MEDS ORDERED: HEPARIN SODIUM - IV 10,000 UNITS/10 ML VIAL ONE (14:10)
[2017-05-14 14:19] LABS: INTERNATIONAL NORMALIZED RATIO 1.1 RATIO; PROTHROMBIN TIME - PATIENT 10.9 SEC (9.8-11.6)
[2017-05-14 14:58] LABS: BICARBONATE 25.8 MEQ/L (21.0-32.0); CREATININE 0.78 MG/DL (0.50-1.00)
[2017-05-14] MEDS ORDERED: CLINDAMYCIN 600 MG/NS 100 ML IV ONE ×2 (15:15)
[2017-05-14] MEDS ORDERED: LIDOCAINE HCL 1% 50 ML VIAL INFIL PRN (16:15)
[2017-05-14] MEDS ORDERED: BACITRACIN OINT 0.9 GM PKT TOP ONE (16:15)
[2017-05-14] MEDS ORDERED: DIAZEPAM 10 MG TAB PO PRN (16:15)
[2017-05-14] MEDS ORDERED: oxyCODONE/ACETAMINOPHEN 5 MG/325 MG TAB PO PRN ×2 (16:15)
[2017-05-14] MEDS ORDERED: ATROPINE SULFATE 1 MG/ML VIAL IV PUSH PRN (16:15)
[2017-05-14] MEDS ORDERED: LORazepam 2 MG/ML VIAL IV PUSH PRN (16:15)
[2017-05-14] MEDS ORDERED: diphenhydrAMINE HCL 25 MG CAP PO PRN (16:15)
[2017-05-14] MEDS ORDERED: SODIUM CHLOR 0.9% 250 ML INJ 250 ML IV PRN (16:15)
[2017-05-14] MEDS ORDERED: METOCLOPRAMIDE HCL 10 MG/2 ML VIAL IV PUSH PRN (16:15)
[2017-05-14] MEDS ORDERED: ONDANSETRON HCL 4 MG/2 ML VIAL IV PUSH PRN (16:15)
--- NOTE | 2017-05-14 16:33 | CATHPROC ---
Patient Name: JUAN CARLOS VU Study #: [id number] Initial MD: Kurtis Akins Date of : 1945 Study Date: 05/14/2017 Cardiac Catheterization Report 05/14/2017 4:49:24 PM Financial #: [id number] 1 of 10 Patient Name: JUAN CARLOS VU Study #: [id number] Initial MD: Kurtis Akins Date of : 1945 Study Date: 05/14/2017 Entire Case Report Patient Information Patient Name JUAN CARLOS VU Date of 1945 Age 71 years Financial # [id number] Gender F AlternateID Lab Number 2 Room Number DC08 Height (in) 65.0 Height (cm) 165.1 BSA 1.57 Weight (lbs) 116.2 Weight (kg) 52.8 Patient Address/Phone Number Home Address [facility] Home Phone Number [phone] [facility] [address] Study Information Study Number Admission Scheduled Start Study Start [id number] May 14 2017 12:45PM 05/14/2017 May 14 2017 1:17PM [place] Service Electrophysiology Study Admit Source Facility Department Other [facility] - Structural Steel Erector Physician and Clinical Staff Initial Kurtis Burkett Sidewalk Repairer Kennedi Rodriguez RCIS Sidewalk Repairer Mariusz De Leon,RT(R) Other Anesthesia, CHIEF BUSINESS OFFICER Recorder Esperanza Garcia RN Recorder Nikki Snyder RN Scrub Renae Blackwell,SPECIAL EDUCATION ITINERANT TEACHER TECH2 Procedures Performed Procedure Location (Site) Vessel Name Ablation Procedure Cardioversion RF Ablation LT. ATRIUM LT. ATRIUM 05/14/2017 4:49:24 PM Financial #: [id number] 2 of 10 Patient Name: JUAN CARLOS VU Study #: [id number] Initial MD: Kurtis Akins Date of : 1945 Study Date: 05/14/2017 Equipment Time Fondant Puff Maker Description Size Mfg Part Number Used/Scraped NEEDLE, TRANSSEPTAL NR 98 [id number] 14:56 [facility] Used C1 *[id number] [employer]/ EP [id number] 14:56 KIT, TRANSDUCER / AFIB Used PACER *[id number]- CATHETER, TACTICATH ABLAT BUNDLE 14:56 [facility] Used 65 BUNDLE *[id number]- BUNDLE [id number] CATHETER, FR7 OPTIMA SPIRAL 14:56 [facility] FR7 *[id number]- Used BUNDLE BUNDLE [id number] 15:05 [facility] CATHETER, JSN, QUAD BUNDLE FR 5 *[id number]- Used BUNDLE [id number] 15:05 BUND[facility] CATHETER, JSN, QUAD BUNDLE FR 5 *[id number]- Used BUNDLE [id number] 14:56 BUND[facility] CATHETER, JSN, QUAD BUNDLE FR 5 *[id number]- Used BUNDLE [id number] 14:56 BUND[facility] CATHETER, JSN, QUAD BUNDLE FR 5 *[id number]- Used BUNDLE 27170-SCOFWO SET, COOL POINT TUBING 14:56 BUND[facility] *[id number]- Used BUNDLE BUNDLE SHEATH, FR8.5 STEERABLE SM 14:56 BUND[facility] 71CM [id number] Used 71CM BUNDLE COVER, TRANSDUCER CABLE 612-113 14:56 [employer] Used ACUNAV *[id number] 14:56 CORDIS/PACER SHEATH, FR10 ZUHAIR 11CM FR 10 Used *[id number] 14:56 CORDIS/PACER SHEATH, FR9 ZUHAIR 11CM FR 9 [id number] Used [id number] 14:56 MEDLINE IND[employer]RIES PACK, CCL CUSTOM * Used *[id number] 14:56 MEDLINE PACER ROY, LIMB * 2530 *[id number] Used [id number] 14:56 [employer] MEDICAL SHEATH, FR4.5 PRELUDE 11CM FR 4.5 Used [id number] 14:56 NAMIC TUBING, HIGH PRESSURE 48" 48" Used *[id number] 14:56 NAMIC TUBING, HIGH PRESSURE 48" 48" Used *[id number] [id number] 14:56 OJEDA MEDICAL BLANKET,WARM AIR CCL * Used *[id number] RI6927 14:56 [facility] MEDICAL ELECTRODE KIT, ANATOLY X SURFACE * Used *[id number] 901669 14:56 [facility] MEDICAL SHEATH, EPS, FR6 FAST CATH FR 6 Used *3393448 14:56 [facility] MEDICAL SHEATH, EPS, FR7 FAST CATH FR 7 [id number] Used [id number] 14:56 [facility] MEDICAL SHEATH, EPS, FR8 FAST CATH FR 8 Used *0890149 [facility], ELECTROSURGICAL 14:56 * [id number] *[id number] Used SURGICAL GROUNDING (BLUE) 05/14/2017 4:49:24 PM Financial #: [id number] 3 of 10 Patient Name: JUAN CARLOS VU Study #: [id number] Initial MD: Kurtis Akins Date of : 1945 Study Date: 05/14/2017 Insurance Information Insurance Payor Private Health Insurance Third Alliance Party Third Alliance Party Number FHC - MCR HMO FHCMCRHMO History: Allergies Allergy Reaction Darvon Nausea/Vomiting Erythromycin UPSET STOMACH Levaquin Joint Pain Penicillin simvastatin propoxyphene Nausea/Vomiting erythromycin base UPSET STOMACH penicillin G levofloxacin Joint Pain History: Risk Factors Hypertension Dyslipidemia Yes Yes Labs Hgb (g/dl) Hct (%) RBC (MIL/MM3) WBC (l/cumm) Platelets (thousands) 11.60-17.00 35.00-51.00 4.00-5.90 4.00-11.00 150.00-450.00 12.0 36 3.3 4.7 271 Glucose (mg/dl) BUN (mg/dl) Creatinine (mg/dl) BUN:Creatinine (1:x) 74.00-106.00 7.00-18.00 0.50-1.30 10.00-20.00 96 9 0.7 12.9 Na (meq/l) K (meq/l) 136.00-145.00 3.50-5.10 123 3.5 INR (PTT:PT) 0.90-1.10 1.1 Medication 05/14/2017 4:49:24 PM Financial #: [id number] 4 of 10 Patient Name: JUAN CARLOS VU Study #: [id number] Initial MD: Kurtis Akins Date of : 1945 Study Date: 05/14/2017 Medication Total Dose (Bolus/Oral) Medication Total Dosage/Unit 1% XYLOCAINE 40 mL HEPARIN 24195 units PROTAMINE 40 mg Medications (Bolus/Oral) Medication Time Given Dosage/Unit Administered By Reason 1% XYLOCAINE 05/14/2017 2:53:13 PM 20 mL Kurtis Akins 20 mL 1% XYLOCAINE given in lab by Kurtis Akins in Left Groin via Subcutaneous. Ordered by Curt Akins 1% XYLOCAINE 05/14/2017 2:58:31 PM 20 mL Kurtis Akins 20 mL 1% XYLOCAINE given in lab by Kurtis Akisn in Right Groin via Subcutaneous. Ordered by Claudine Akins. HEPARIN 05/14/2017 3:07:59 PM 41389 units Anesthesia, CHIEF BUSINESS OFFICER As per physicians ve rbal order 40816 units HEPARIN given in lab by Anesthesia, CHIEF BUSINESS OFFICER via Peripheral IV. Ordered by Kurtis Akins. Metcalfe son: As per physicians verbal order. PROTAMINE 05/14/2017 4:09:00 PM 40 mg Anesthesia, CHIEF BUSINESS OFFICER As per physicians verb al order 40 mg PROTAMINE given in lab by Anesthesia, CHIEF BUSINESS OFFICER via Peripheral IV. Ordered by Kurtis Akins. Reason: As per physicians verbal order. Medication (Drip) Medication Time Given Dosage/Unit Concentration/Unit Diluent (ml) Solution CLINDAMYCIN 05/14/2017 3:12:00 PM 600 mg 100 mL/hr CLINDAMYCIN given in lab by Anesthesia, CHIEF BUSINESS OFFICER, using NaCl .9 with a concentration of 600 mg in 100 ml. Ordered by Kurtis Aikns. ISUPREL 05/14/2017 3:51:18 PM 10 mcg/min 1 mg 250 NaCl .9 10 mcg/min ISUPREL given in lab by Anesthesia, CHIEF BUSINESS OFFICER via Peripheral IV. Pump/Drip Flow = 150 ml/hr usi ng NaCl .9 with a concentration of 1 mg in 250 ml. Ordered by Kurtis Akins. Reason: As per physicians verbal order. 05/14/2017 4:49:24 PM Financial #: [id number] Patient Name: JUAN CARLOS VU Study #: [id number] Initial MD: Kurtis Akins Date of : 1945 Study Date: 05/14/2017 Initial Case Assessment Cardiovascular HR Rhythm NIBP Chest Pain 107 af 189/114 0 Edema Present Skin color Skin Mild Normal Warm Dry Circulatory - Right Pulses Dorsalis Pedis 1 Scale (0,1,2,3,4,d) Circulatory - Left Pulses Dorsalis Pedis 1 Scale (0,1,2,3,4,d) Circulatory - Lower Extremities Color Lower Right Color Lower Left Normal Normal Neurological State Oriented to time-place- Alert Moves all extremities person Respiration - General Respiration Rate SpO2 (%) (B/min) 18 98 05/14/2017 4:49:24 PM Financial #: [id number] 6 of 10 Patient Name: JUAN CARLOS VU Study #: [id number] Initial MD: Kurtis Akins Date of : 1945 Study Date: 05/14/2017 Final Case Assessment Cardiovascular HR Rhythm NIBP Chest Pain 76 sr 177/70 0 Edema Present Skin color Skin Mild Normal Warm Dry Circulatory - Right Pulses Dorsalis Pedis 1 Scale (0,1,2,3,4,d) Circulatory - Left Pulses Dorsalis Pedis 1 Scale (0,1,2,3,4,d) Circulatory - Lower Extremities Color Lower Right Color Lower Left Normal Normal Neurological State Lethargic Moves all extremities Respiration - General Respiration Rate SpO2 (%) O2 (lpm) (B/min) 16 100 4 Chronological Log Time Study Chronological Log 13:55:57 Patient arrived via Bed. 13:55:57 Patient Name, D.O.B, / Armband Verified By R.N. 13:55:58 Consent signed by the physician and the patient and verified by the Structural Steel Erector staff. 13:55:59 Pre-op and post- op instructions given; patient acknowledges understanding of instructions. 13:56:00 Verbal Stimulation=2 Physical Stimulation=2 Airway=2 Respiration=2 TOTAL=8. (0=absent, 1=li mited, 2=present) 13:56:00 Anesthesia at bedside. Assumes care of patient. Teala 13:56:21 Patient has been NPO for More than 6Hrs. 13:56:22 Skin Breakdown- generalized bruising 13:56:32 Patient Warmer Placed on the Table. 05/14/2017 4:49:24 PM Financial #: [id number] 7 of 10 Patient Name: JUAN CARLOS VU Study #: [id number] Initial MD: Kurtis Akins Date of : 1945 Study Date: 05/14/2017 13:56:33 Disposable Defibrillator Pads Placed On Patient. 13:56:34 Lisbet Prominences Protected 13:56:35 IV Warmer Connected To Patient. 13:56:36 A # 20 IV was noted in the Antecubital (right). Grade = 0 0.9ns kvo 13:56:37 A # 20 IV was noted in the Antecubital (left). Grade = 0 0.9ns kvo 13:56:38 History and physical on the chart or being dictated. 14:10:42 Anesthesia present to inutubate. Assessment: Initial Case, [place]=021 BPM, Rhythm=af, GSVF=836/114 mmhg, Chest Pain=0, Edema=Mild, C olor=Normal, Skin = Warm, Dry Right Pulses: Chetan Ped=1 Left Pulses: Cheatn Ped=1 14:13:08 Lower Right Extremities: Color=Normal Lower Left Extremities: Color=Normal Neurological: State=Alert, Ox3, RAWLS Respiration: Resp=18 B/min, SpO2=98 % 14:13:11 Table restraints applied according to hospital policy 14:13:18 Bilateral groins prepped with 2% chlorhexidine, and draped after a 3 minute waiting time. 14:18:28 Reference ECG taken 14:47:54 MD arrived. Time Out. Correct patient, procedure, procedure equipment, site and side verified with physicia n present. Time 14:49:00 concurred by MD, individual staff and CHIEF BUSINESS OFFICER. Time Out #2 - Consents verified, patient in correct position, all results are labled and displa yed, safety precautions 14:49:28 taken, antibiotics administered. Time out concurred by MD, individual staff and CHIEF BUSINESS OFFICER in procedu re 14:49:46 Case Start 14:50:02 Andrea in progress 14:52:21 ANDREA completed. EPS commencing. 14:53:13 20 mL 1% XYLOCAINE given in lab by Kurtis Akins in Left Groin via Subcutaneous. Ordered by Kurtis Akins. 14:53:43 Vascular access was obtained in the Fem Art (left). 14:53:49 A SHEATH, FR4.5 PRELUDE 11CM FR 4.5 was advanced into the Fem Art (left) using the Modified Seldinger technique. 14:54:58 Vascular access was obtained in the Fem Vein (left). 14:55:10 A SHEATH, EPS, FR7 FAST CATH FR 7 was advanced into the Fem Vein (left) using the Modified Seldinger technique. 14:55:49 Vascular access was obtained in the Fem Vein (left). 14:56:27 A SHEATH, EPS, FR6 FAST CATH FR 6 was advanced into the Fem Vein (left) using the Modified Seldinger technique. 14:56:47 Vascular access was obtained in the Fem Vein (left). 14:57:04 A SHEATH, FR10 ZUHAIR 11CM FR 10 was advanced into the Fem Vein (left) using the Modified S eldinger technique. 14:58:31 20 mL 1% XYLOCAINE given in lab by Kurtis Akins in Right Groin via Subcutaneous. Ordered b Kurtis Sharma. 14:58:56 Vascular access was obtained in the Fem Vein (right). 14:59:23 A SHEATH, EPS, FR8 FAST CATH FR 8 was advanced into the Fem Vein (right) using the Modified Seldinger technique. A CATHETER, JSN, QUAD BUNDLE FR 5 was advanced vis Fem Vein (left) and placed in the CS. Placem ent was visually 15:01:25 confirmed under fluoroscopy. A CATHETER, JSN, QUAD BUNDLE FR 5 was advanced vis Fem Vein (left) and placed in the HIS. Place ment was 15:02:36 visually confirmed under fluoroscopy. 05/14/2017 4:49:24 PM Financial #: [id number] Patient Name: JUAN CARLOS VU Study #: [id number] Initial MD: Kurtis Akins Date of : 1945 Study Date: 05/14/2017 A SHEATH, FR8.5 STEERABLE SM 71CM BUNDLE 71CM was exchanged in the Fem Vein (right). This was n ecessary in 15:05:47 order for catheter support. 15:06:18 [place] needle in 15:07:44 A eps was advanced to the right atrium and passed through the septal wall to the left atriu [place]. 97521 units HEPARIN given in lab by Anesthesia, CHIEF BUSINESS OFFICER via Peripheral IV. Ordered by Willy Akins Reason: As per 15:07:59 physicians verbal order. 15:08:52 [place] needle out A CATHETER, FR7 OPTIMA SPIRAL BUNDLE FR7 was advanced vis Fem Vein (right) and placed in the LA . Placement 15:09:18 was visually confirmed under fluoroscopy. 15:09:41 Mapping in progress 100 mL/hr CLINDAMYCIN given in lab by Anesthesia, CHIEF BUSINESS OFFICER, using NaCl .9 with a concentration of 6 00 mg in 100 ml. 15:12:00 Ordered by Kurtis Akins. 15:14:28 Activated Clotting Time Drawn 15:23:45 ACT (Normal Range 90-180) = 413 15:24:38 Mapping complete. Catheter was removed A CATHETER, TACTICATH ABLAT 65 BUNDLE was advanced vis Fem Vein (right) and placed in the LA. P lacement was 15:24:54 visually confirmed under fluoroscopy. 15:25:08 RF Ablation of the LT. ATRIUM with a CATHETER, TACTICATH ABLAT 65 BUNDLE. 15:46:20 ECG rhythm of AF noted. Patient cardioverted at 200 joules. Success synch 15:50:19 Activated Clotting Time Drawn 10 mcg/min ISUPREL given in lab by Anesthesia, CHIEF BUSINESS OFFICER via Peripheral IV. Pump/Drip Flow = 150 ml/ hr using NaCl .9 15:51:18 with a concentration of 1 mg in 250 ml. Ordered by Kurtis Akins. Reason: As per physicians didier bal order. 15:56:06 ACT (Normal Range 90-180) = 403 16:01:27 Isuprel off 16:03:40 All catheter(s) removed without difficulty A SHEATH, FR9 ZUHAIR 11CM FR 9 was exchanged in the Fem Vein (right). This was necessary in ord er to minimize 16:05:23 site leakage. 40 mg PROTAMINE given in lab by Anesthesia, CHIEF BUSINESS OFFICER via Peripheral IV. Ordered by Kurtis Akins. R sanford: As per 16:09:00 physicians verbal order. 16:15:00 Activated Clotting Time Drawn 16:17:00 ACT (Normal Range 90-180) = 165 16:17:29 Right groin sheath removed; pressure applied to access site by TF. 16:17:53 Left groin arterial sheath removed; pressure applied to access site by DC. Assessment: Final Case, HR=76 BPM, Rhythm=sr, DGRI=727/70 mmhg, Chest Pain=0, Edema=Mild, Color =Normal, Skin = Warm, Dry Right Pulses: Chetan Ped=1 Left Pulses: Chetan Ped=1 16:20:52 Lower Right Extremities: Color=Normal Lower Left Extremities: Color=Normal Neurological: State=Lethargic, RAWLS Respiration: Resp=16 B/min, LvO9=770 %, O2=4 lpm 16:21:50 PACU called. Spoke to William 16:22:19 Bedside Report will be given. 16:30:16 Left groin venous sheaths removed; pressure applied to access sites by DC. 16:31:46 Defibrillator and ground pads removed. Skin intact. 16:41:15 Case End 05/14/2017 4:49:24 PM Financial #: [id number] Patient Name: JUAN CARLOS VU Study #: [id number] Initial MD: Kurtis Akins Date of : 1945 Study Date: 05/14/2017 16:41:32 No case complications noted. 16:41:38 Cine recording checked. 16:48:02 Sterile dressing applied to sites. Sites wnl 16:49:13 Ablation procedure performed: AFIB. 16:49:19 EP Procedure was performed. 16:50:49 Patient moved to [facility] End Study - Contrast Media Used In Study Contrast Total Opened (mL) Total Used (mL) Total Wasted (mL) Omnipaque 0 0 0 End Study - Maximum Contrast Load Max Contrast Load (mL) 377.3 End Study - Radiation Exposure Fluoro Time (minutes) 1.9 End Study - Patient Disposition Complications Transferred To Interventional Outcome No Telemetry Bed successful 05/14/2017 4:49:24 PM Financial #: [id number]
[2017-05-14] MEDS ORDERED: MIDAZOLAM HCL 2 MG/2 ML VIAL ONE (17:08)
[2017-05-14] MEDS ORDERED: DO NOT ADM ANY ANTICOAGULANT DRUGS PRN (18:15)
[2017-05-14] MEDS: METOPROLOL TARTRATE 50 MG TAB PO SCH (19:49)
--- NOTE | 2017-05-14 20:05 | EKG ---
Date Performed: 05/14/2017 Time Performed: 17:16:27 PTAGE: 71 years EKG: Sinus rhythm NORMAL ECG PREVIOUS TRACING : 05/14/2017 13.42 Compared to previous tracing, sinus rhythm has replaced atr ial fibrillation. DOCTOR: Julio Cesar Wong Interpretating Date/Time 05/14/2017 20:04:23
--- NOTE | 2017-05-14 20:19 | EKG ---
Date Performed: 05/14/2017 Time Performed: 13:42:02 PTAGE: 71 years EKG: Atrial fibrillation with rapid ventricular response. Lateral ST-T changes are nonspecific A bnormal ECG PREVIOUS TRACING : 10/09/2016 16.17 No significant change from previous tracing noted. DOCTOR: Julio Cesar Wong Interpretating Date/Time 05/14/2017 20:17:42
[2017-05-14] MEDS: ACETAMINOPHEN 500 MG CPLT PO SCH ×2 (20:25→20:27)
[2017-05-14] MEDS: GABAPENTIN 300 MG CAP PO SCH (20:26)
[2017-05-14] MEDS: APIXABAN 5 MG TABLET PO SCH (20:26)
[2017-05-15] VITALS (12 sets, daily range): BP systolic 147–155; BP diastolic 91–98; PULSE 70–92; RESP 19; TEMP 97.8–98; O2SAT 100
[2017-05-15] MEDS ORDERED: LEVOTHYROXINE SODIUM 50 MCG TAB PO SCH (06:00)
[2017-05-15 07:08] LABS: INTERNATIONAL NORMALIZED RATIO 1.1 RATIO; PROTHROMBIN TIME - PATIENT 11.1 SEC (9.8-11.6)
--- NOTE | 2017-05-15 08:09 | PD.CARD.PN ---
Subjective Subjective Remarks Feels okay status post ablation. Objective Medications Current Medications Medications (Trade) Dose Ordered Sig/Lucia Route Start Time Stop Time Status Last Admin (Percocet 5-325 Mg) 1 tab Q4H PRN PO 05/14/17 16:15 (Percocet 5-325 Mg) 2 tab Q4H PRN PO 05/14/17 16:15 (Ativan Inj) 0.5 mg UNSCH PRN IV PUSH 05/14/17 16:15 05/15/17 16:14 (Atropine Inj) 0.5 mg UNSCH PRN IV PUSH 05/14/17 16:15 Sodium Chloride 250 ml @ 500 mls/hr ONCE PRN IV 05/14/17 16:15 05/15/17 16:14 (Reglan Inj) 10 mg Q4H PRN IV PUSH 05/14/17 16:15 (Zofran Inj) 4 mg Q4H PRN IV PUSH 05/14/17 16:15 (Xylocaine 1% Inj (50 ml)) 10 ml UNSCH PRN INFIL 05/14/17 16:15 05/15/17 16:14 (Tylenol) 500 mg Q12HR PO 05/14/17 21:00 05/14/17 20:27 (Eliquis) 5 mg BID PO 05/14/17 21:00 05/14/17 20:26 (Valium) 10 mg BID PRN PO 05/14/17 16:15 (Benadryl) 25 mg Q12H PRN PO 05/14/17 16:15 (Lasix) 40 mg DAILY PO 05/15/17 09:00 (Neurontin) 600 mg BID PO 05/14/17 21:00 05/14/17 20:26 (Synthroid) 50 mcg DAILY@0600 PO 05/15/17 06:00 05/15/17 05:05 (Lopressor) 50 mg TID PO 05/14/17 18:00 05/14/17 19:49 (Protonix) 40 mg DAILY PO 05/15/17 09:00 (KCl) 20 meq DAILY PO 05/15/17 09:00 (Prinivil) 40 mg DAILY PO 05/15/17 09:00 Patient Own Medication PT OWN MED: (Umeclidinium [place] ... DAILY INH 05/15/17 09:00 Future Hold Miscellaneous Information ALL NURSING DEPARTME... UNSCH PRN .XX 05/14/17 18:15 05/15/17 18:14 Vital Signs / I&O Vital Signs Date Time Temp Pulse Resp B/P (MAP) Pulse Ox O2 Delivery O2 Flow Rate FiO2 05/15/17 06:00 71 05/15/17 05:00 72 05/15/17 04:00 72 05/15/17 03:58 97.8 72 155/91 (112) 100 05/15/17 03:00 75 05/15/17 02:00 70 05/15/17 01:00 72 05/15/17 00:00 76 05/14/17 23:51 98.0 74 152/87 (108) 100 05/14/17 23:00 78 05/14/17 22:00 78 05/14/17 21:00 80 05/14/17 20:00 96.9 82 170/103 (125) 100 05/14/17 20:00 82 05/14/17 19:00 77 05/14/17 18:30 97.9 76 18 154/101 (118) 96 05/14/17 17:50 74 16 164/84 (110) 100 Nasal Cannula 2 05/14/17 17:30 70 16 160/91 (114) 100 Nasal Cannula 2 05/14/17 17:15 71 16 159/81 (107) 99 Nasal Cannula 2 05/14/17 16:58 97.5 71 16 172/81 (111) 99 Nasal Cannula 2 05/14/17 13:43 97.0 107 17 196/127 (150) 100 I/O 05/14/17 05/14/17 05/14/17 05/15/17 05/15/17 05/15/17 07:00 15:00 23:00 07:00 15:00 23:00 Intake Total 240 ml 240 ml Output Total 400 ml Balance 240 ml -160 ml Intake Oral 240 ml 240 ml Output Urine Total 400 ml Physical Exam GENERAL: Well-nourished, well-developed patient. SKIN: Warm and dry. Groin site soft without bruising or bleeding. HEAD: Normocephalic. EYES: No scleral icterus. No injection or drainage. NECK: Supple, trachea midline. No JVD or lymphadenopathy. CARDIOVASCULAR: Regular rate and rhythm without murmurs, gallops, or rubs. RESPIRATORY: Breath sounds equal bilaterally. No accessory muscle use. GASTROINTESTINAL: Abdomen soft, non-tender, nondistended. EXTREMITIES: No cyanosis, or edema. NEUROLOGICAL: Awake, alert, and oriented x 3. Non-focal. Laboratory Laboratory Tests Test 05/14/17 13:10 05/15/17 06:12 White Blood Count 4.7 TH/MM3 Red Blood Count 3.35 MIL/MM3 Hemoglobin 12.4 GM/DL Hematocrit 36.2 % Mean Corpuscular Volume 108.2 FL Mean Corpuscular Hemoglobin 36.9 PG Mean Corpuscular Hemoglobin Concent 34.1 % Red Cell Distribution Width 13.3 % Platelet Count 275 TH/MM3 Mean Platelet Volume 7.9 FL Neutrophils (%) (Auto) 58.8 % Lymphocytes (%) (Auto) 27.5 % Monocytes (%) (Auto) 9.1 % Eosinophils (%) (Auto) 3.2 % Basophils (%) (Auto) 1.4 % Neutrophils # (Auto) 2.8 TH/MM3 Lymphocytes # (Auto) 1.3 TH/MM3 Monocytes # (Auto) 0.4 TH/MM3 Eosinophils # (Auto) 0.1 TH/MM3 Basophils # (Auto) 0.1 TH/MM3 CBC Comment DIFF FINAL Differential Comment Prothrombin Time 10.9 SEC 11.1 SEC Prothromb Time International Ratio 1.1 RATIO 1.1 RATIO Activated Partial Thromboplast Time 28.2 SEC 29.2 SEC Blood Urea Nitrogen 9 MG/DL Creatinine 0.78 MG/DL Random Glucose 96 MG/DL Calcium Level 9.0 MG/DL Sodium Level 123 MEQ/L Potassium Level 3.5 MEQ/L Chloride Level 87 MEQ/L Carbon Dioxide Level 25.8 MEQ/L Anion Gap 10 MEQ/L Estimat Glomerular Filtration Rate 73 ML/MIN Assessment and Plan Problem List: (1) Atrial fibrillation with RVR ICD Codes: I48.91 - Unspecified atrial fibrillation Status: Acute Plan: Stable for discharge. Continue Eliquis. Sinus rhythm on telemetry. (2) S/P ablation of atrial fibrillation ICD Codes: Z98.890 - Other specified postprocedural states; Z86.79 - Personal history of other diseases of the circulatory system Plan: Discharge home. Follow-up with Dr. Akins in 3 weeks per my discussion with him. Munira Jackman May 15, 2017 08:09
--- NOTE | 2017-05-15 08:46 | EKG ---
Date Performed: 05/15/2017 Time Performed: 05:14:48 PTAGE: 71 years EKG: Sinus rhythm Normal ECG PREVIOUS TRACING : 05/14/2017 17.16 No significant change from previous tracing noted. DOCTOR: Julio Cesar Wong Interpretating Date/Time 05/15/2017 08:44:26
[2017-05-15] MEDS ORDERED: LISINOPRIL 20 MG TAB PO SCH (09:00)
[2017-05-15] MEDS ORDERED: UMECLIDINIUM BROMIDE 62.5 MCG INH SCH (09:00)
[2017-05-15] MEDS ORDERED: POTASSIUM CHLORIDE 20 MEQ CONTROLLED RELEASE TAB PO SCH (09:00)
[2017-05-15] MEDS ORDERED: PANTOPRAZOLE SOD 40 MG DELAYED RELEASE TAB PO SCH (09:00)
[2017-05-15] MEDS ORDERED: FUROSEMIDE 40 MG TAB PO SCH (09:00)
[2017-05-15] MEDS: METOPROLOL TARTRATE 50 MG TAB PO SCH (09:00)
[2017-05-15] MEDS: ACETAMINOPHEN 500 MG CPLT PO SCH (09:00)
[2017-05-15] MEDS: GABAPENTIN 300 MG CAP PO SCH (09:05)
[2017-05-15] MEDS: APIXABAN 5 MG TABLET PO SCH (09:07)
== END 2017-05-15 11:43 | disposition home or self-care (01) ==
LOC: HDIC 12:45 → HDOC 12:45 → HCIS 17:53 → HDOC 05-15 11:43
PROVIDERS: ATTEND Internal Medicine Interventional Cardiology
DX: I48.91 Unspecified atrial fibrillation (principal); I34.1 Nonrheumatic mitral (valve) prolapse; I47.2 Ventricular tachycardia; I10 Essential (primary) hypertension; Z01.818 Encounter for other preprocedural examination
CPT/HCPCS: 00537; 80048; 85002; 85025; 85610; 85730; 86850; 86900; 86901; 92960; 93005; 93312; 93320; 93325; 93613; 93623; 93656; 93662; C1730; C1731; C1732; C1759; C1766; C2630; J1100; J1644; J2250; J2370; J2405; J2720; J3010

== ENCOUNTER 2017-07-14 09:07 | Inpatient (IN) | payer MEDICARE ==
[~2017-07-14] VITALS: Ht 162.6 cm; Wt 54.7 kg
[~2017-07-14 09:07] MED LIST changes: +ACET-822 PO; -AMIO200T PO; -DEXAMETHASONE SOD PHOS 4 MG/ML VIAL IV ONE; +DIAZ10TA PO; +DIPH25CA PO; +FURO1TAB60 PO; +KLOR20TA3 PO; -LABETALOL HCL 100 MG/20 ML VIAL IV ONE; -LACTCAP8 PO; +LEVO50TA4 PO; -LIDOCAINE HCL 1% PF 5 ML SYRINGE OTHER ONE; -ONDANSETRON HCL 4 MG/2 ML VIAL IV ONE; -PHENYLEPH/NS 1000 MCG/10 ML SYR IV ONE; -PROPOFOL 200 MG/20 ML AMP IV ONE; -ROCURONIUM INJ 50 MG/5 ML SYRINGE IV PUSH ONE; -SODI1TAB PO; -ePHEDrine/NS 25 MG/5 ML SYRINGE IV ONE
[2017-07-14 09:11] VITALS: BP 206/101; PULSE 101; RESP 14; TEMP 98.1; O2SAT 100
[2017-07-14] MEDS ORDERED: SODIUM CHLORIDE 0.9% FLUSH 10 ML FLUSH IV FLUSH PRN ×2 (10:00→14:15)
[2017-07-14] MEDS ORDERED: MORPHINE SULFATE 4 MG/ML INJ IV PUSH ONE (10:00)
--- NOTE | 2017-07-14 10:06 | PD ---
HPI Chief Complaint: Hip Injury Time Seen by Provider: 09:35 Travel History International Travel<30 days: No Contact w/Intl Traveler<30days: No Traveled to known affect area: No History of Present Illness HPI Patient is a 71-year-old female who presents the emergency room for evaluation of right hip pain. Patient reports that she was wearing issues last night, reports that she tripped on her shoes and fell onto her left hip. Patient reports that she did have history of hip replacement [address] Sneed. Denies any trauma to head/neck. Denies any loc. She is currently taking Eliquis as she has history of atrial fibrillation. Patient reports that she fell around 9 PM last night and was able to get herself to bed with difficultly. Reports that she woke up this morning unable to ambulate. She had a riding instructor help her into the car, her niece brought her to the emergency room for evaluation. PFSH Past Medical History Arthritis: Yes Blood Disorders: No Anxiety: No Depression: No Heart Rhythm Problems: Yes (MITRAL VALVE PROLAPSE) Cancer: Yes ( LEFT BREAST 2002) Cardiovascular Problems: Yes (AFIB, HTN) High Cholesterol: Yes Chemotherapy: No Chest Pain: No Congestive Heart Failure: No COPD: Yes Cerebrovascular Accident: No Diabetes: No Diminished Hearing: No Endocrine: No Gastrointestinal Disorders: Yes (superior mesenteric artery syndrome, GERD) GERD: Yes Glaucoma: No Genitourinary: No Headaches: Yes Hepatitis: No Hiatal Hernia: No Hypertension: Yes Immune Disorder: No Implanted Vascular Access Dvce: Yes Medical other: Yes (GERD) Musculoskeletal: Yes 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 uses inhaler) Integumentary: No Migraines: Yes Pneumonia: Yes Radiation Therapy: Yes Seizures: No Thyroid Disease: Yes (HYPOTHYROID) Ulcer: No Tetanus Vaccination: < 5 Years Past Surgical History Abdominal Surgery: Yes (GASTRIC BYPASS, ) AICD: No Appendectomy: Yes Arteriovenous Shunt: No Body Medical Devices: SPINAL CORD IMPLANT STIMULATOR Cardiac Surgery: No Ear Surgery: No Endocrine Surgery: No Eye Surgery: No Genitourinary Surgery: No Gynecologic Surgery: Yes (HYSTERECTOMY) Hysterectomy: Yes Insulin Pump: No Joint Replacement: Yes (LEFT HIP) Neurologic Surgery: Yes (SPINAL CORD IMPLANT STIMULATOR) Oral Surgery: Yes (TMJ X 2, TEETH IMPLANTS) Pacemaker: No Thoracic Surgery: Yes (left breast lumpectomy) Other Surgery: Yes (breast cancer 2001) Social History Alcohol Use: Yes (OCCAS) Tobacco Use: No Substance Use: No Allergies-Medications (Allergen,Severity, Reaction): Coded Allergies: levofloxacin (Verified Allergy, Severe, Joint Pain, 07/14/17) simvastatin (Verified Allergy, Severe, 07/14/17) penicillin G (Verified Allergy, Unknown, 07/14/17) erythromycin base (Verified Adverse Reaction, Mild, UPSET STOMACH, 07/14/17) propoxyphene (Verified Adverse Reaction, Mild, Nausea/Vomiting, 07/14/17) Reported Meds & Prescriptions Reported Meds & Active Scripts Active Lisinopril 40 Mg Tab 40 Mg PO DAILY Eliquis (Apixaban) 5 Mg Tab 5 Mg PO BID Reported Tylenol Extra Strength (Acetaminophen) 500 Mg Tablet 500 Mg PO Q12HR Levothyroxine (Levothyroxine Sodium) 50 Mcg Tab 50 Mcg PO DAILY Metoprolol Tartrate 50 Mg Tab 50 Mg PO TID Lasix (Furosemide) 40 Mg Tab 40 Mg PO DAILY Klor-Con M20 (Potassium Chloride Microencaps) 20 Meq Tab 20 Meq PO DAILY Diphenhydramine (Diphenhydramine HCl) 25 Mg Cap 25 Mg PO Q12H PRN Incruse Ellipta Inh (Umeclidinium Comfrey Inh) 0.0625 Mg/Act Inh 62.5 Mcg INH DAILY Protonix (Pantoprazole Sodium) 40 Mg Tab 40 Mg PO DAILY Gabapentin 600 Mg Tab 600 Mg PO BID Review of Systems General / Constitutional: No: Fever Eyes: No: Visual changes HENT: No: Headaches Cardiovascular: No: Chest Pain or Discomfort Respiratory: No: Shortness of Breath Gastrointestinal: No: Abdominal Pain Genitourinary: No: Dysuria Musculoskeletal: Positive: Pain (left hip pain) Skin: No Rash Neurologic: No: Weakness Psychiatric: No: Depression Endocrine: No: Polydipsia Hematologic/Lymphatic: No: Easy Bruising Physical Exam Narrative GENERAL: Mild distress SKIN: Focused skin assessment warm/dry. HEAD: Atraumatic. Normocephalic. EYES: Pupils equal and round. No scleral icterus. No injection or drainage. ENT: No nasal bleeding or discharge. Mucous membranes pink and moist. NECK: Trachea midline. No JVD. CARDIOVASCULAR: Regular rate and rhythm. No murmur appreciated. RESPIRATORY: No accessory muscle use. Clear to auscultation. Breath sounds equal bilaterally. GASTROINTESTINAL: Abdomen soft, non-tender, nondistended. Hepatic and splenic margins not palpable. MUSCULOSKELETAL: Patient with everted left lower extremity with pain with ROM to left hip, no obvious open fx, pulses intact. RLE: normal exam.. No clubbing. No cyanosis. No edema. NEUROLOGICAL: Awake and alert. No obvious cranial nerve deficits. Motor grossly within normal limits. Normal speech. PSYCHIATRIC: Appropriate mood and affect; insight and judgment normal. Data Data Last Documented VS Vital Signs Date Time Temp Pulse Resp B/P (MAP) Pulse Ox O2 Delivery O2 Flow Rate FiO2 07/14/17 09:11 98.1 101 14 206/101 (136) 100 Orders Orders Hip, Uni(Ap&Lat) W Ap Pelvis (07/14/17 ) Basic Metabolic Panel (Bmp) (07/14/17 09:48) Complete Blood Count With Diff (07/14/17 09:48) Prothrombin Time / Inr (Pt) (07/14/17 09:48) Act Partial Throm Time (Ptt) (07/14/17 09:48) Iv Access Insert/Monitor (07/14/17 09:48) Ecg Monitoring (07/14/17 09:48) NPO (07/14/17 09:48) Morphine Inj (Morphine Inj) (07/14/17 10:00) Sodium Chloride 0.9% Flush (Ns Flush) (07/14/17 10:00) Consult Orthopedic (07/14/17 ) (Hub Use Only)Inp Phy Cons/Ref (07/14/17 ) Admit To Inpatient (07/14/17 ) Vital Signs (Adult) Q4H (07/14/17 14:09) Activity Bed Rest (07/14/17 14:09) Cocoa Powder Mixer Operator / Telemetry CESAR.Q8H (07/14/17 14:09) Scd&Teds/Non-Oper Leg/Knee Hig CESAR.QSHIFT (07/14/17 14:09) Npo After Midnight W/ Po Meds (07/14/17 Dinner) Diet Regular Basic (07/14/17 Dinner) Sodium Chloride 0.9% Flush (Ns Flush) (07/14/17 14:15) Sodium Chloride 0.9% Flush (Ns Flush) (07/14/17 21:00) Ondansetron Inj (Zofran Inj) (07/14/17 14:15) Acetaminophen (Tylenol) (07/14/17 14:15) Docusate Sodium (Colace) (07/14/17 21:00) Magnesium Hydroxide Liq (Milk Of Magnesi (07/14/17 14:15) Diphenhydramine Inj (Benadryl Inj) (07/14/17 14:15) Diphenhydramine (Benadryl) (07/14/17 14:15) Naloxone Inj (Narcan Inj) (07/14/17 14:15) Complete Blood Count With Diff (07/15/17 06:00) Basic Metabolic Panel (Bmp) (07/15/17 06:00) Chest, Single Ap (07/14/17 ) Electrocardiogram (07/14/17 ) Inpatient Certification (07/14/17 ) Admit Order (Ed Use Only) (07/14/17 14:18) Diazepam (Valium) (07/14/17 14:15) Gabapentin (Neurontin) (07/14/17 21:00) Levothyroxine (Synthroid) (07/15/17 09:00) Metoprolol Tartrate (Lopressor) (07/14/17 18:00) Pantoprazole (Protonix) (07/15/17 09:00) (Nf) Lisinopril (07/15/17 09:00) (Nf) Umeclidinium Comfrey Inh (Incruse E (07/15/17 09:00) Acetamin-Hydrocod 325-7.5 Mg ([place] 7.5 (07/14/17 14:30) Hydromorphone Pf Inj (Dilaudid Pf Inj) (07/14/17 14:30) Labs Laboratory Tests Test 07/14/17 10:15 White Blood Count 7.7 TH/MM3 Red Blood Count 3.11 MIL/MM3 Hemoglobin 11.0 GM/DL Hematocrit 32.5 % Mean Corpuscular Volume 104.6 FL Mean Corpuscular Hemoglobin 35.3 PG Mean Corpuscular Hemoglobin Concent 33.8 % Red Cell Distribution Width 13.4 % Platelet Count 271 TH/MM3 Mean Platelet Volume 7.8 FL Neutrophils (%) (Auto) 75.9 % Lymphocytes (%) (Auto) 11.9 % Monocytes (%) (Auto) 10.4 % Eosinophils (%) (Auto) 0.9 % Basophils (%) (Auto) 0.9 % Neutrophils # (Auto) 5.9 TH/MM3 Lymphocytes # (Auto) 0.9 TH/MM3 Monocytes # (Auto) 0.8 TH/MM3 Eosinophils # (Auto) 0.1 TH/MM3 Basophils # (Auto) 0.1 TH/MM3 CBC Comment DIFF FINAL Differential Comment Prothrombin Time 11.0 SEC Prothromb Time International Ratio 1.1 RATIO Activated Partial Thromboplast Time 27.6 SEC Blood Urea Nitrogen 10 MG/DL Creatinine 0.70 MG/DL Random Glucose 95 MG/DL Calcium Level 9.6 MG/DL Sodium Level 130 MEQ/L Potassium Level 5.1 MEQ/L Chloride Level 97 MEQ/L Carbon Dioxide Level 19.6 MEQ/L Anion Gap 13 MEQ/L Estimat Glomerular Filtration Rate 83 ML/MIN MDM Medical Decision Making Medical Screen Exam Complete: Yes Emergency Medical Condition: Yes Medical Record Reviewed: Yes Interpretation(s) Vital Signs Date Time Temp Pulse Resp B/P (MAP) Pulse Ox O2 Delivery O2 Flow Rate FiO2 07/14/17 09:11 98.1 101 14 206/101 (136) 100 Differential Diagnosis hip fx/dislocation Narrative Course During the course of the patients emergency department visit, the patients history, examination, and differential diagnosis were reviewed with the patient. The patient was placed on a cardiac specialist with oximetry and frequent blood pressure monitoring. The patient had an IV access obtained and blood work sent for analysis. The patient was initially provided IV morphine for pain control Radiology studies were reviewed and remarkable for Last Impressions Hip and Pelvis X-Ray 07/14/17 0000 Signed Impressions: CONCLUSION: Minimally anteriorly displaced fracture involving the greater trochanter with o ne large bone fragment measuring at least 8.6 x 3.6 cm across case reviewed with Dr. Mcgarry who will see patient in consult Diagnosis Primary Impression: Fracture of greater trochanter of left femur Qualified Codes: S72.112A - Displaced fracture of greater trochanter of left femur, initial encounter for closed fracture Admitting Information Admitting Physician Requests: Observation Ivone Naik DO Jul 14, 2017 10:06
--- NOTE | 2017-07-14 10:29 | RADRPT ---
EXAM DATE: 07/14/2017 10:24 AM EDT AGE/SEX: 71 years / Female INDICATIONS: Left hip pain after fall. CLINICAL DATA: This is the patient's initial encounter. Patient reports that signs and symptoms have been present for 1 day and indicates a pain score of 6/10. MEDICAL/SURGICAL HISTORY: None. . Left hip replacement. COMPARISON: No prior [place] exams available for comparison. FINDINGS: There is an oblique fracture through the base of the greater trochanter in a patient status post left total hip arthroplasty. There is dense atherosclerotic disease. The superior and inferior pubic rami are intact. CONCLUSION: Minimally anteriorly displaced fracture involving the greater trochanter with one large bone fragment measuring at least 8.6 x 3.6 cm across Electronically signed by: Sadi Plummer MD 07/14/2017 10:27 AM EDT
[2017-07-14 12:19] LABS: AUTOMATED NEUTROPHIL # 5.9 TH/MM3 (1.8-7.7); BASOPHIL # 0.1 TH/MM3 (0-0.2); BASOPHIL % 0.9 % (0.0-2.0); EOSINOPHIL # 0.1 TH/MM3 (0-0.4); EOSINOPHIL % 0.9 % (0.0-4.0); HEMATOCRIT 32.5 % (35.0-46.0); LYMPH % 11.9 % (9.0-44.0); LYMPHOCYTE # 0.9 TH/MM3 (1.0-4.8); MEAN CELL VOLUME 104.6 FL (80.0-100.0); MEAN CORPUSCULAR HEMOGLOBIN 35.3 PG (27.0-34.0); MEAN CORPUSCULAR HGB CONC 33.8 % (32.0-36.0); MEAN PLATELET VOLUME 7.8 FL (7.0-11.0); MONO % 10.4 % (0.0-8.0); MONOCYTE # 0.8 TH/MM3 (0-0.9); NEUT % 75.9 % (16.0-70.0); PLATELET COUNT 271 TH/MM3 (150-450); RED BLOOD COUNT 3.11 MIL/MM3 (4.00-5.30); RED CELL DISTRIBUTION WIDTH 13.4 % (11.6-17.2); WHITE BLOOD COUNT 7.7 TH/MM3 (4.0-11.0)
[2017-07-14 12:32] LABS: INTERNATIONAL NORMALIZED RATIO 1.1 RATIO
[2017-07-14 13:08] LABS: BICARBONATE 19.6 MEQ/L (21.0-32.0); CALCIUM 9.6 MG/DL (8.5-10.1); CREATININE 0.7 MG/DL (0.50-1.00)
[2017-07-14] MEDS ORDERED: DIAZEPAM 10 MG TAB PO PRN (14:15)
[2017-07-14] MEDS ORDERED: ACETAMINOPHEN 325 MG TAB PO PRN (14:15)
[2017-07-14] MEDS ORDERED: NALOXONE HCL 0.4 MG/ML AMP IV PUSH PRN (14:15)
[2017-07-14] MEDS ORDERED: MAGNESIUM HYDROXIDE SUSP 30 ML CUP PO PRN (14:15)
[2017-07-14] MEDS ORDERED: ONDANSETRON ODT 4 MG TAB PO PRN (14:15)
[2017-07-14] MEDS ORDERED: diphenhydrAMINE HCL 25 MG CAP PO PRN (14:15)
[2017-07-14] MEDS ORDERED: diphenhydrAMINE HCL 50 MG/ML VIAL IV PUSH PRN (14:15)
--- NOTE | 2017-07-14 14:24 | HHI.HP ---
HPI Service [facility] Hospitalists Primary Care Physician Keyla Meadows MD Admission Diagnosis HIP FRACTURE S/P FALL Chief Complaint: right hip pain Travel History International Travel<30 Days: No Contact w/Intl Traveler <30 Da: No Traveled to Known Affected Are: No History of Present Illness Patient is a 71-year-old female who presents the emergency room for evaluation of right hip pain. Patient reports that she was wearing issues last night, reports that she tripped on her shoes and fell onto her left hip. Patient reports that she did have history of hip replacement [address] Sneed. Denies any trauma to head/neck. Denies any loc. She is currently taking Eliquis as she has history of atrial fibrillation. Patient reports that she fell around 9 PM last night and was able to get herself to bed with difficultly. Reports that she woke up this morning unable to ambulate. She had a regional safety manager help her into the car, her niece brought her to the emergency room for evaluation. Review of Systems Constitutional: DENIES: Diaphoretic episodes, Fatigue, Fever, Weight gain, Weight loss, Chills, Dizziness, Change in appetite, Night Sweats Endocrine: DENIES: Abnorml menstrual pattern, Heat/cold intolerance, Polydipsia , Polyuria, Polyphagia Eyes: DENIES: Blurred vision, Diplopia, Eye inflammation, Eye pain, Vision loss , Photosensitivity, Double Vision Ears, nose, mouth, throat: DENIES: Tinnitus, Hearing loss, Vertigo, Nasal discharge, Oral lesions, Throat pain, Hoarseness, Ear Pain, Running Nose, Epistaxis, Sinus Pain, Toothache, Odynophagia Respiratory: DENIES: Apneas, Cough, Snoring, Wheezing, Hemoptysis, Sputum production, Shortness of breath Cardiovascular: DENIES: Chest pain, Palpitations, Syncope, Dyspnea on Exertion , PND, Lower Extremity Edema, Orthopnea, Claudication Gastrointestinal: DENIES: Abdominal pain, Black stools, Bloody stools, BRB per rectum, Constipation, Diarrhea, GERD, Nausea, Reflux, Vomiting, Difficulty Swallowing, Anorexia Genitourinary: DENIES: Sexual dysfunction, Urinary frequency, Urinary incontinence, Urgency, Hematuria, Dysuria, Nocturia Musculoskeletal: DENIES: Joint pain, Muscle aches, Stiffness, Joint Swelling, Back pain, Neck pain Integumentary: DENIES: Abnormal pigmentation, Pruritus, Rash, Nail changes, Breast masses, Breast skin changes, Nipple discharge Hematologic/lymphatic: DENIES: Bruising, Lymphadenopathy Immunologic/allergic: DENIES: Eczema, Urticaria Neurologic: COMPLAINS OF: Abnormal gait, DENIES: Headache, Localized weakness, Paresthesias, Seizures, Speech Problems, Tremor, Poor Balance Psychiatric: DENIES: Anxiety, Confusion, Mood changes, Depression, Hallucinations, Agitation, Suicidal Ideation, Homicidal Ideation, Delusions, History of Bipolar, History of Schizophrenia Past Family Social History Past Medical History - HTN - OA - mitral valve prolapse - left breast Ca 2001 - . Fibrillation - Hyperlipidemia - GERD - Meineres Disease - hypothyroid Past Surgical History - gastric bypass - spinal cord stimulator - hysterectomy - Left FREDO - spinal cord stimulator implant - left breast lumbpectomy Reported Medications Reported Meds & Active Scripts Active Hydrocodone-Acetamin 5-325 mg (Hydrocodone/Acetaminophen) 5 Mg-325 Mg Tablet 2 Tab PO Q6H PRN MDD 8 14 Days Eliquis (Apixaban) 2.5 Mg Tab 2.5 Mg PO BID MDD 5 mg 14 Days Lisinopril 40 Mg Tab 40 Mg PO DAILY Reported Diazepam 10 Mg Tab 10 Mg PO BID PRN Tylenol Extra Strength (Acetaminophen) 500 Mg Tablet 500 Mg PO Q12HR Levothyroxine (Levothyroxine Sodium) 50 Mcg Tab 50 Mcg PO DAILY Metoprolol Tartrate 50 Mg Tab 50 Mg PO TID Lasix (Furosemide) 40 Mg Tab 40 Mg PO DAILY Klor-Con M20 (Potassium Chloride Microencaps) 20 Meq Tab 20 Meq PO DAILY Diphenhydramine (Diphenhydramine HCl) 25 Mg Cap 25 Mg PO Q12H PRN Incruse Ellipta Inh (Umeclidinium [place] Inh) 0.0625 Mg/Act Inh 62.5 Mcg INH DAILY Protonix (Pantoprazole Sodium) 40 Mg Tab 40 Mg PO DAILY Gabapentin 600 Mg Tab 600 Mg PO BID Allergies: Coded Allergies: levofloxacin (Verified Allergy, Severe, Joint Pain, 07/14/17) simvastatin (Verified Allergy, Severe, 07/14/17) penicillin G (Verified Allergy, Unknown, 07/14/17) erythromycin base (Verified Adverse Reaction, Mild, UPSET STOMACH, 07/14/17) propoxyphene (Verified Adverse Reaction, Mild, Nausea/Vomiting, 07/14/17) Family History Non-contributory Social History - no tobacco - occasional etoh - no illicit drugs Physical Exam Vital Signs Vital Signs Date Time Temp Pulse Resp B/P (MAP) Pulse Ox O2 Delivery O2 Flow Rate FiO2 07/14/17 09:11 98.1 101 14 206/101 (136) 100 Physical Exam GENERAL: This is a well-nourished, well-developed patient, in no apparent distress. SKIN: No rashes, ecchymoses or lesions. Cool and dry. HEAD: Atraumatic. Normocephalic. No temporal or scalp tenderness. EYES: Pupils equal round and reactive. Extraocular motions intact. No scleral icterus. No injection or drainage. ENT: Nose without bleeding, purulent drainage or septal hematoma. Throat without erythema, tonsillar hypertrophy or exudate. Uvula midline. Airway patent. NECK: Trachea midline. No JVD or lymphadenopathy. Supple, nontender, no meningeal signs. CARDIOVASCULAR: Regular rate and rhythm without murmurs, gallops, or rubs. RESPIRATORY: Clear to auscultation. Breath sounds equal bilaterally. No wheezes , rales, or rhonchi. GASTROINTESTINAL: Abdomen soft, non-tender, nondistended. No hepato-splenomegaly , or palpable masses. No guarding. MUSCULOSKELETAL: Extremities without clubbing, cyanosis, or edema. No joint tenderness, effusion, or edema noted. No calf tenderness. Negative Homans sign bilaterally. NEUROLOGICAL: Awake and alert. Cranial nerves II through XII intact. Motor and sensory grossly within normal limits. Five out of 5 muscle strength in all muscle groups. Normal speech. Laboratory Laboratory Tests Test 07/14/17 10:15 White Blood Count 7.7 Red Blood Count 3.11 Hemoglobin 11.0 Hematocrit 32.5 Mean Corpuscular Volume 104.6 Mean Corpuscular Hemoglobin 35.3 Mean Corpuscular Hemoglobin Concent 33.8 Red Cell Distribution Width 13.4 Platelet Count 271 Mean Platelet Volume 7.8 Neutrophils (%) (Auto) 75.9 Lymphocytes (%) (Auto) 11.9 Monocytes (%) (Auto) 10.4 Eosinophils (%) (Auto) 0.9 Basophils (%) (Auto) 0.9 Neutrophils # (Auto) 5.9 Lymphocytes # (Auto) 0.9 Monocytes # (Auto) 0.8 Eosinophils # (Auto) 0.1 Basophils # (Auto) 0.1 CBC Comment DIFF FINAL Differential Comment Prothrombin Time 11.0 Prothromb Time International Ratio 1.1 Activated Partial Thromboplast Time 27.6 Blood Urea Nitrogen 10 Creatinine 0.70 Random Glucose 95 Calcium Level 9.6 Sodium Level 130 Potassium Level 5.1 Chloride Level 97 Carbon Dioxide Level 19.6 Anion Gap 13 Estimat Glomerular Filtration Rate 83 Result Diagram: 07/14/17 1015 07/14/17 1015 Caprini VTE Risk Assessment Caprini VTE Risk Assessment: Mod/High Risk (score >= 2) Caprini Risk Assessment Model Point Value = 1 Point Value = 2 Point Value = 3 Point Value = 5 Age 41-60 Minor surgery BMI > 25 kg/m2 Swollen legs Varicose veins or History of unexplained or recurrent spontaneous Oral contraceptives or hormone replacement Sepsis (< 1 month) Serious lung disease, including pneumonia (< 1 month) Abnormal pulmonary function Acute myocardial infarction Congestive heart failure (< 1 month) History of inflammatory bowel disease Medical patient at bed rest Age 61-74 Arthroscopic surgery Major open surgery (> 45 min) Laparoscopic surgery (> 45 min) Malignancy Confined to bed (> 72 hours) Immobilizing plaster cast Central venous access Age >= 75 History of VTE Family history of VTE Factor V Leiden Prothrombin [id number] Lupus anticoagulant Anticardiolipin antibodies Elevated serum homocysteine Heparin-induced thrombocytopenia Other congenital or acquired thrombophilia Stroke (< 1 month) Elective arthroplasty Hip, pelvis, or leg fracture Acute spinal cord injury (< 1 month) Prophylaxis Regimen Total Risk Factor Score Risk Level Prophylaxis Regimen 0-1 Low Early ambulation 2 Moderate Order ONE of the following: *Sequential Compression Device (SCD) *Heparin 5000 units SQ BID 3-4 Higher Order ONE of the following medications: *Heparin 5000 units SQ TID *Enoxaparin/Lovenox 40 mg SQ daily (WT < 150 kg, CrCl > 30 mL/min) *Enoxaparin/Lovenox 30 mg SQ daily (WT < 150 kg, CrCl > 10-29 mL/min) *Enoxaparin/Lovenox 30 mg SQ BID (WT < 150 kg, CrCl > 30 mL/min) AND/OR *Sequential Compression Device (SCD) 5 or more Highest Order ONE of the following medications: *Heparin 5000 units SQ TID (Preferred with Epidurals) *Enoxaparin/Lovenox 40 mg SQ daily (WT < 150 kg, CrCl > 30 mL/min) *Enoxaparin/Lovenox 30 mg SQ daily (WT < 150 kg, CrCl > 10-29 mL/min) *Enoxaparin/Lovenox 30 mg SQ BID (WT < 150 kg, CrCl > 30 mL/min) AND *Sequential Compression Device (SCD) Assessment and Plan Problem List: (1) Vanessa-prosthetic fracture of femur following total hip arthroplasty ICD Codes: M97.8XXA - Periprosthetic fracture around other internal prosthetic joint, initial encounter; Z96.649 - Presence of unspecified artificial hip joint Plan: - case d/w Dr. Patino - will need to delay surgery x 48 hours d/t therapy with Eliquis - narcotics prn - DVT prophylaxis - supportive care (2) HTN (hypertension) ICD Codes: I10 - Essential (primary) hypertension Status: Chronic Plan: - continue home regimen (3) Atrial fibrillation ICD Codes: I48.91 - Unspecified atrial fibrillation Status: Chronic Plan: Continue Metoprolol 50 mg PO BID - hold eliquis for surgery - observe on telemetry. (4) COPD (chronic obstructive pulmonary disease) ICD Codes: J44.9 - Chronic obstructive pulmonary disease, unspecified Status: Chronic Plan: - duonebs prn Physician Certification 2 Midnight Certification Type: Admission for Inpatient Services Order for Inpatient Services The services are ordered in accordance with Medicare regulations or non- Medicare payer requirements, as applicable. In the case of services not specified as inpatient-only, they are appropriately provided as inpatient services in accordance with the 2-midnight benchmark. Estimated LOS (days): 3 3 days is the estimated time the patient will need to remain in the hospital, assuming treatment plan goals are met and no additional complications. Post-Hospital Plan: SNF Problem Qualifiers (1) Vanessa-prosthetic fracture of femur following total hip arthroplasty: Qualified Codes: M97.8XXA - Periprosthetic fracture around other internal prosthetic joint, initial encounter; Z96.649 - Presence of unspecified artificial hip joint (2) HTN (hypertension): Qualified Codes: I10 - Essential (primary) hypertension (3) Atrial fibrillation: Qualified Codes: I48.2 - Chronic atrial fibrillation (4) COPD (chronic obstructive pulmonary disease): Qualified Codes: J44.9 - Chronic obstructive pulmonary disease, unspecified Keenan Hernandez DO Jul 14, 2017 14:24
[2017-07-14] MEDS ORDERED: HYDROmorphone HCL PF 2 MG/ML VIAL IV PUSH PRN (14:30)
--- NOTE | 2017-07-14 16:15 | RADRPT ---
EXAM DATE: 07/14/2017 4:07 PM EDT AGE/SEX: 71 years / Female INDICATIONS: Evaluate for pneumonia,pneumothorax or communicable disease. Pre op for hip surgery. CLINICAL DATA: This is the patient's initial encounter. Patient reports that signs and symptoms have been present for 1 day and indicates a pain score of 0/10. MEDICAL/SURGICAL HISTORY: Chronic obstructive pulmonary disease. atrial fibrillation, on blood thinners None. COMPARISON: [facility] [place], CHEST SINGLE AP, 08/22/2016. . FINDINGS: A single AP view of the chest demonstrates the lungs to be symmetrically aerated without evidence of mass, infiltrate or effusion. The cardiomediastinal contours are unremarkable. Widening of the acrom ioclavicular joint. Suspect Hill-Sachs fracture right humeral head. Epidural stimulator in good posit ion lower thoracic spine CONCLUSION: Negative examination. Electronically signed by: Sadi Plummer MD 07/14/2017 4:14 PM EDT
[2017-07-14 16:30] VITALS: BP 122/69; PULSE 99; RESP 16; O2SAT 99
[2017-07-14 17:35] VITALS: BP 161/85; PULSE 99; RESP 16; TEMP 97.6; O2SAT 95
[2017-07-14] MEDS: METOPROLOL TARTRATE 50 MG TAB PO SCH (18:23)
[2017-07-14] MEDS: ACETAMINOPHEN/HYDROcodone 325 MG/7.5 MG TAB PO PRN ×2 (18:24→23:11)
[2017-07-14 20:00] VITALS: BP 160/74; PULSE 97; RESP 17; TEMP 97.5; O2SAT 100
[2017-07-14] MEDS: SODIUM CHLORIDE 0.9% FLUSH 10 ML FLUSH IV FLUSH SCH (23:10)
[2017-07-14] MEDS: DOCUSATE SODIUM 100 MG CAP PO SCH (23:11)
[2017-07-14] MEDS: GABAPENTIN 300 MG CAP PO SCH (23:11)
[2017-07-15 00:01] VITALS: BP 154/86; PULSE 96; RESP 17; TEMP 97.9; O2SAT 100
[2017-07-15] MEDS ORDERED: MORPHINE SULFATE 4 MG/ML INJ IV PRN (00:30)
[2017-07-15 04:00] VITALS: BP 162/88; PULSE 101; RESP 18; TEMP 97.8; O2SAT 99
[2017-07-15] MEDS: MORPHINE SULFATE 4 MG/ML INJ IV PRN ×2 (05:13→23:13)
[2017-07-15] MEDS: LEVOTHYROXINE SODIUM 50 MCG TAB PO SCH (05:13)
[2017-07-15 08:00] VITALS: BP 187/87; PULSE 102; RESP 16; TEMP 97.5; O2SAT 96
[2017-07-15 08:30] LABS: AUTOMATED NEUTROPHIL # 2.8 TH/MM3 (1.8-7.7); BASOPHIL # 0.1 TH/MM3 (0-0.2); BASOPHIL % 1.1 % (0.0-2.0); EOSINOPHIL # 0.2 TH/MM3 (0-0.4); EOSINOPHIL % 5.3 % (0.0-4.0); HEMATOCRIT 29.4 % (35.0-46.0); LYMPH % 17.4 % (9.0-44.0); LYMPHOCYTE # 0.8 TH/MM3 (1.0-4.8); MEAN CELL VOLUME 105.9 FL (80.0-100.0); MEAN CORPUSCULAR HEMOGLOBIN 36.2 PG (27.0-34.0); MEAN CORPUSCULAR HGB CONC 34.1 % (32.0-36.0); MEAN PLATELET VOLUME 7.4 FL (7.0-11.0); MONO % 15.7 % (0.0-8.0); MONOCYTE # 0.7 TH/MM3 (0-0.9); NEUT % 60.5 % (16.0-70.0); PLATELET COUNT 237 TH/MM3 (150-450); RED BLOOD COUNT 2.77 MIL/MM3 (4.00-5.30); RED CELL DISTRIBUTION WIDTH 12.9 % (11.6-17.2); WHITE BLOOD COUNT 4.7 TH/MM3 (4.0-11.0)
[2017-07-15 08:48] LABS: CALCIUM 8.8 MG/DL (8.5-10.1); CREATININE 0.56 MG/DL (0.50-1.00)
[2017-07-15] MEDS ORDERED: [UNRECOGNIZED DRUG - OTHER] INH SCH (09:00)
[2017-07-15] MEDS: DOCUSATE SODIUM 100 MG CAP PO SCH ×2 (09:00→21:00)
[2017-07-15] MEDS: SODIUM CHLORIDE 0.9% FLUSH 10 ML FLUSH IV FLUSH SCH ×2 (09:00→21:21)
[2017-07-15] MEDS ORDERED: UMECLIDINIUM BROMIDE 62.5 MCG INH SCH (09:00)
[2017-07-15] MEDS: GABAPENTIN 300 MG CAP PO SCH ×2 (09:35→21:21)
[2017-07-15] MEDS: ACETAMINOPHEN/HYDROcodone 325 MG/7.5 MG TAB PO PRN ×2 (09:35→13:30)
[2017-07-15] MEDS: PANTOPRAZOLE SOD 40 MG DELAYED RELEASE TAB PO SCH (09:35)
[2017-07-15] MEDS: METOPROLOL TARTRATE 50 MG TAB PO SCH ×4 (09:35→21:22)
[2017-07-15] MEDS: LISINOPRIL 20 MG TAB PO SCH (09:35)
[2017-07-15] MEDS: CHLORHEXIDINE GLUCONATE 2 % 1 PACK (2 CLOTHS) TOPICAL SCH ×2 (10:09→21:00)
--- NOTE | 2017-07-15 10:10 | PD.ORT.PN ---
Subjective Pain Scale: controlled Subjective Remarks Questions about anticoagulation, HHC, rehab etc. All answered Objective Vitals Last 72 hours Impressions Hip and Pelvis X-Ray 07/14/17 0000 Signed Impressions: CONCLUSION: Minimally anteriorly displaced fracture involving the greater trochanter with o ne large bone fragment measuring at least 8.6 x 3.6 cm across Chest X-Ray 07/14/17 0000 Signed Impressions: CONCLUSION: Negative examination. Vital Signs Date Time Temp Pulse Resp B/P (MAP) Pulse Ox O2 Delivery O2 Flow Rate FiO2 07/15/17 08:00 97.5 102 16 187/87 (120) 96 07/15/17 04:00 97.8 101 18 162/88 (112) 99 07/15/17 00:01 97.9 96 17 154/86 (108) 100 07/14/17 20:00 97.5 97 17 160/74 (102) 100 07/14/17 19:53 Room Air 07/14/17 17:35 97.6 99 16 161/85 (110) 95 07/14/17 16:31 07/14/17 16:30 99 16 122/69 (86) 99 Room Air 07/14/17 15:24 15 I/O 07/14/17 07/14/17 07/14/17 07/15/17 07/15/17 07/15/17 07:00 15:00 23:00 07:00 15:00 23:00 Intake Total 360 ml Output Total 875 ml Balance -515 ml Intake Oral 360 ml Output Urine Total 875 ml Result Diagram: 07/15/17 0703 07/15/17 0703 Other Results Laboratory Tests Test 07/14/17 10:15 Prothromb Time International Ratio 1.1 RATIO Prothrombin Time 11.0 SEC (9.8-11.6) Objective Remarks A, A, and O In bed comfortable. No change left hip, Has abrasion left tibia Left knee swollen from OA Assessment & Plan Assessment and Plan Pre op ORIF PP fx left femur , greater troch, Da Patino MD Jul 15, 2017 10:10
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
[2017-07-15] MEDS ORDERED: RESP: ALBUTEROL 2.5 MG/IPRATROPIUM 0.5 MG NEB (PRN) NEB (11:45)
--- NOTE | 2017-07-15 11:48 | HHI.PR ---
Subjective Remarks Patient c/o muscle spasms Patient unable to sleep due to muscle spams Objective Vitals Vital Signs Date Time Temp Pulse Resp B/P (MAP) Pulse Ox O2 Delivery O2 Flow Rate FiO2 07/15/17 08:00 97.5 102 16 187/87 (120) 96 07/15/17 04:00 97.8 101 18 162/88 (112) 99 07/15/17 00:01 97.9 96 17 154/86 (108) 100 07/14/17 20:00 97.5 97 17 160/74 (102) 100 07/14/17 19:53 Room Air 07/14/17 17:35 97.6 99 16 161/85 (110) 95 07/14/17 16:31 07/14/17 16:30 99 16 122/69 (86) 99 Room Air 07/14/17 15:24 15 Result Diagram: 07/15/17 0703 07/15/17 0703 Other Results Laboratory Tests Test 07/14/17 10:15 07/15/17 07:03 White Blood Count 7.7 TH/MM3 4.7 TH/MM3 Red Blood Count 3.11 MIL/MM3 2.77 MIL/MM3 Hemoglobin 11.0 GM/DL 10.0 GM/DL Hematocrit 32.5 % 29.4 % Mean Corpuscular Volume 104.6 FL 105.9 FL Mean Corpuscular Hemoglobin 35.3 PG 36.2 PG Mean Corpuscular Hemoglobin Concent 33.8 % 34.1 % Red Cell Distribution Width 13.4 % 12.9 % Platelet Count 271 TH/MM3 237 TH/MM3 Mean Platelet Volume 7.8 FL 7.4 FL Neutrophils (%) (Auto) 75.9 % 60.5 % Lymphocytes (%) (Auto) 11.9 % 17.4 % Monocytes (%) (Auto) 10.4 % 15.7 % Eosinophils (%) (Auto) 0.9 % 5.3 % Basophils (%) (Auto) 0.9 % 1.1 % Neutrophils # (Auto) 5.9 TH/MM3 2.8 TH/MM3 Lymphocytes # (Auto) 0.9 TH/MM3 0.8 TH/MM3 Monocytes # (Auto) 0.8 TH/MM3 0.7 TH/MM3 Eosinophils # (Auto) 0.1 TH/MM3 0.2 TH/MM3 Basophils # (Auto) 0.1 TH/MM3 0.1 TH/MM3 CBC Comment DIFF FINAL DIFF FINAL Differential Comment Prothrombin Time 11.0 SEC Prothromb Time International Ratio 1.1 RATIO Activated Partial Thromboplast Time 27.6 SEC Blood Urea Nitrogen 10 MG/DL 7 MG/DL Creatinine 0.70 MG/DL 0.56 MG/DL Random Glucose 95 MG/DL 95 MG/DL Calcium Level 9.6 MG/DL 8.8 MG/DL Sodium Level 130 MEQ/L 132 MEQ/L Potassium Level 5.1 MEQ/L 4.1 MEQ/L Chloride Level 97 MEQ/L 96 MEQ/L Carbon Dioxide Level 19.6 MEQ/L 27.0 MEQ/L Anion Gap 13 MEQ/L 9 MEQ/L Estimat Glomerular Filtration Rate 83 ML/MIN 107 ML/MIN Imaging Last Impressions Hip and Pelvis X-Ray 07/14/17 0000 Signed Impressions: CONCLUSION: Minimally anteriorly displaced fracture involving the greater trochanter with o ne large bone fragment measuring at least 8.6 x 3.6 cm across Chest X-Ray 07/14/17 0000 Signed Impressions: CONCLUSION: Negative examination. Objective Remarks GENERAL: This is a well-nourished, well-developed patient, in no apparent distress. CARDIOVASCULAR: Regular rate and rhythm RESPIRATORY: Clear to auscultation. Breath sounds equal bilaterally. GASTROINTESTINAL: Abdomen soft, non-tender, nondistended. Normal active bowel sounds MUSCULOSKELETAL: left lower extremity shortened NEURO: Alert & Oriented x4 to person, place, time, situation. Moves all ext x4 A/P Problem List: (1) Fracture of greater trochanter of left femur ICD Codes: S72.112A - Displaced fracture of greater trochanter of left femur, initial encounter for closed fracture Status: Acute Plan: - Patient tripped and fell sustained minimally displaced fracture involving the left greater trochanter - Hip and pelvis xray reviewed reveals: minimally displaced fracture involving the left greater trochanter with one large bone fragment measuring at least 8.6 x 3.6 cm across - Patient has had previous left hip replacement - Consult to Orthopedic surgery, Dr. Patino - Plan for surgical intervention 07/16/17 - Hold Eliquis for upcoming surgery - add Flexeril as needed for muscle spasms - continue current pain regiment with [place] and Morphine (patient has had N/V with Dilaudid) (2) Atrial fibrillation ICD Codes: I48.91 - Unspecified atrial fibrillation Plan: Patient has history of atrial fibrillation- currently in SR Eliquis on hold for upcoming surgery Continue Metoprolol 50 mg PO BID (3) HTN (hypertension) ICD Codes: I10 - Essential (primary) hypertension Status: Chronic Plan: Continue patient's home metoprolol 50 mg Po BID and Lisinopril 40 mg PO daily BP elevated this AM possibly due to pain, continue current pain regiment and add Flexeril will add clonidine as needed (4) Hyponatremia ICD Codes: E87.1 - Hypo-osmolality and hyponatremia Status: Acute Plan: Patient has chronic hyponatremia Na 130 on admission -> 132 (07/15) (5) COPD (chronic obstructive pulmonary disease) ICD Codes: J44.9 - Chronic obstructive pulmonary disease, unspecified Status: Chronic Plan: Does not appear to be in acute exacerbation continue patient's home Umeclidinium [place] Duo nebs as needed (6) Hypothyroidism ICD Codes: E03.9 - Hypothyroidism, unspecified Plan: Continue patient's home levothyroxine Assessment and Plan Patient examined. Assessment and plan formulated with Britney Owens PA-C. I agree with the above. Problem Qualifiers (1) Fracture of greater trochanter of left femur: Qualified Codes: S72.112A - Displaced fracture of greater trochanter of left femur, initial encounter for closed fracture Britney Owens Jul 15, 2017 11:48 Keenan Hernandez DO Jul 19, 2017 22:35
[2017-07-15 12:00] VITALS: BP 140/68; PULSE 97; RESP 16; TEMP 98.2; O2SAT 94
[2017-07-15] MEDS ORDERED: cloNIDine HCL 0.1 MG TAB PO PRN (12:00)
[2017-07-15] MEDS ORDERED: CYCLOBENZAPRINE HCL 10 MG TAB PO ONE (12:00)
[2017-07-15 16:00] VITALS: BP 113/63; PULSE 94; RESP 16; TEMP 97.6; O2SAT 97
--- NOTE | 2017-07-15 19:11 | EKG ---
Date Performed: 07/14/2017 Time Performed: 19:32:14 PTAGE: 71 years EKG: Sinus rhythm WITH SHORT CO INTERVAL WITH OCCASIONAL SUPRAVENTRICULAR PREMATURE COMPLEXES BORDERLINE ECG PREVIOUS TRACING : 05/15/2017 05.14 Since the previous tracing, no significant change noted DOCTOR: Noreen Pantoja Interpretating Date/Time 07/15/2017 19:10:15
[2017-07-15 20:00] VITALS: BP 149/74; PULSE 96; RESP 17; TEMP 97.9; O2SAT 96
[2017-07-15] MEDS: CYCLOBENZAPRINE HCL 10 MG TAB PO PRN (21:22)
[2017-07-15] MEDS ORDERED: LACTATED RINGER'S 1000 ML IV PRN (23:45)
[2017-07-15] MEDS ORDERED: POVIDONE IODINE 5% (ANTISEPSIS KIT) 4 APPLICATIONS EACH NARE PRN (23:45)
[2017-07-15] MEDS ORDERED: CHLORHEXIDINE GLUCONATE 2 % 1 PACK (2 CLOTHS) TOPICAL PRN (23:45)
[2017-07-15] MEDS ORDERED: SODIUM CHLORID 0.9% 500 ML IV PRN (23:45)
[2017-07-16 00:01] VITALS: BP 108/60; PULSE 96; RESP 18; TEMP 99; O2SAT 97
[2017-07-16 04:00] VITALS: BP 128/62; PULSE 95; RESP 18; TEMP 98.4; O2SAT 93
[2017-07-16] MEDS: LEVOTHYROXINE SODIUM 50 MCG TAB PO SCH (06:00)
[2017-07-16 07:30] VITALS: BP 143/68; PULSE 95; RESP 20; TEMP 98.2; O2SAT 93
[2017-07-16 07:35] VITALS: PULSE 95
[2017-07-16] MEDS: DOCUSATE SODIUM 100 MG CAP PO SCH (09:00)
[2017-07-16] MEDS: CHLORHEXIDINE GLUCONATE 2 % 1 PACK (2 CLOTHS) TOPICAL SCH (09:00)
[2017-07-16] MEDS: LISINOPRIL 20 MG TAB PO SCH (10:30)
[2017-07-16] MEDS: METOPROLOL TARTRATE 50 MG TAB PO SCH ×3 (10:31→18:00)
[2017-07-16] MEDS: SODIUM CHLORIDE 0.9% FLUSH 10 ML FLUSH IV FLUSH SCH ×2 (10:31→20:43)
[2017-07-16] MEDS: GABAPENTIN 300 MG CAP PO SCH ×2 (10:31→20:33)
[2017-07-16] MEDS: PANTOPRAZOLE SOD 40 MG DELAYED RELEASE TAB PO SCH (10:31)
[2017-07-16] MEDS: ACETAMINOPHEN/HYDROcodone 325 MG/7.5 MG TAB PO PRN (10:34)
[2017-07-16 11:00] VITALS: BP 138/85; PULSE 97; RESP 20; TEMP 97.9; O2SAT 100
[2017-07-16] MEDS ORDERED: GENTAMICIN SULFATE 80 MG/2 ML VIAL ONE (12:15)
[2017-07-16] MEDS ORDERED: VANCOMYCIN INJ 1,250 MG in SODIUM CHLOR 0.9% 250 ML INJ 250 ML IV ONE (13:00)
[2017-07-16] MEDS ORDERED: BUPIVACAINE LIPOSO PF 1.3% INJ 20 ML in SODIUM CHLORIDE 0.9% INJ 40 ML SCH (13:15)
[2017-07-16] MEDS ORDERED: VANCOMYCIN HCL 1000 MG VIAL ONE (13:19)
[2017-07-16] MEDS ORDERED: CLINDAMYCIN PHOS 900 MG/6 ML VIAL ONE (13:20)
[2017-07-16] MEDS ORDERED: VANCOMYCIN 500 MG VIAL ONE (13:20)
[2017-07-16] MEDS ORDERED: MIDAZOLAM HCL 2 MG/2 ML VIAL ONE (15:06)
[2017-07-16] MEDS ORDERED: ONDANSETRON HCL 4 MG/2 ML VIAL IV PUSH ONE (15:57)
[2017-07-16] MEDS ORDERED: PROPOFOL 200 MG/20 ML AMP IV ONE (15:57)
[2017-07-16] MEDS ORDERED: PHENYLEPH/NS 1000 MCG/10 ML SYR IV ONE (15:57)
[2017-07-16] MEDS ORDERED: LIDOCAINE HCL 1% PF 5 ML SYRINGE OTHER ONE (15:57)
[2017-07-16] MEDS ORDERED: DEXAMETHASONE SOD PHOS 4 MG/ML VIAL IV ONE (15:57)
[2017-07-16] MEDS ORDERED: ePHEDrine/NS 25 MG/5 ML SYRINGE IV ONE (15:57)
[2017-07-16] MEDS ORDERED: ROCURONIUM INJ 50 MG/5 ML SYRINGE IV PUSH ONE (15:57)
[2017-07-16] MEDS ORDERED: MORPHINE SULFATE 30 MG/30 ML PCA IV SCH (16:00)
[2017-07-16] MEDS ORDERED: NALOXONE HCL 0.4 MG/ML AMP IV PUSH PRN (16:00)
[2017-07-16] MEDS ORDERED: Post-op Orders (for Pharmacy) XX ONE (16:00)
[2017-07-16] MEDS ORDERED: ACETAMINOPHEN/HYDROcodone 325 MG/5 MG TAB PO PRN (16:00)
[2017-07-16] MEDS ORDERED: CLINDAMYCIN 900 MG/NS PREMIX 50 ML IV ONE (16:00)
[2017-07-16] MEDS ORDERED: TEMAZEPAM 15 MG CAP PO PRN (16:00)
[2017-07-16] MEDS ORDERED: diphenhydrAMINE HCL 50 MG/ML VIAL IV PUSH PRN (16:00)
[2017-07-16] MEDS ORDERED: HYDR-3516 PO (16:08)
[2017-07-16] MEDS ORDERED: APIX2.5T PO (16:08)
--- NOTE | 2017-07-16 16:11 | HHI.FF ---
Face to Face Verification Diagnosis: (1) Vanessa-prosthetic fracture of femur following total hip arthroplasty (2) S/P ablation of atrial fibrillation (3) New onset a-fib Physical Therapy Gait training, Transfer training, bed to chair Hip: Protocol: Left Left LE Weight Bearing: Toe Touch WB Nursing Nursing: Dressing changes Dressing Changes: Coverderm/Primapore I have seen patient Denise Gambino on 07/16/17. My clinical findings support the need for the requested home health care services because: Limited ability to care for self I certify that my clinical findings support that this patient is homebound because: Unsafe to leave home unassisted Da Patino MD Jul 16, 2017 16:11
[2017-07-16] MEDS ORDERED: DO NOT ADM ANY ANTICOAGULANT DRUGS PRN (16:30)
--- NOTE | 2017-07-16 16:34 | MP ---
cc: Da Patino MD DATE OF OPERATION: DATE OF : 1945 DATE OF SURGERY: 07/16/2012: PREOPERATIVE DIAGNOSES: 1. Periprosthetic fracture, left proximal femur. 2. Total hip replacement status. POSTOPERATIVE DIAGNOSES: 1. Periprosthetic fracture, left proximal femur. 2. Total hip replacement status. OPERATIVE PROCEDURE: Open reduction, internal fixation, periprosthetic fracture left proximal femur using Synthes claw plate. SURGEON: MD Sukumar ANESTHESIA: General. TECHNIQUE: After induction of general anesthesia, the patient was placed in left lateral position, supported with Biomet positioners. Strict lateral position was ensured, bony prominences protected. Left hip and left lower extremity thoroughly prepped with alcohol and ChloraPrep and draped in routine fashion including Ioban drapes. The entire previous scar and extension distally for about 5 cm was made, deepened through subcutaneous tissue down to fascia. The fascia was incised in line with the skin incision. The fibers of the gluteus vanessa from underlying scar tissue carefully and Charnley retractor introduced. Dissection carried out immediately posterior to the greater trochanter, staying close to bone, thereby exposing the fracture. The vastus lateralis fascia was incised in its posterior aspect and limited subperiosteal dissection was carried out. This is a comminuted fracture, but is somehow staying together without any gross displacement, but internal rotation of the hip essentially puts it in anatomical position. It was decided that a trochanteric staple was not adequate and will need a trochanteric plate and a plate was bent appropriately to fit the lateral side of the femur and then impacted into the trochanter and then fixed to the shaft with 4 cables. The proximal-most cable passed around the femoral neck inferior to the implant. The second one passed immediately below the lesser trochanter and the other 2 passed around the shaft of the femur. Final position and alignment is good. Fluoroscopic imaging was used during the procedure and final images saved for record keeping. Range of motion of the hip does not produce any movement at the fracture site. We did also add a 25 mm trochanteric bolt through the large locking hole. Wound was irrigated with saline solution, followed by closure with a Hemovac drain underneath. The vastus lateralis fascia was tacked with Vicryl, the fascia closed with #2 Vicryl interrupted as well as #2 Quill, subcutaneous tissue with 2-0 Vicryl, skin closed with a 3-0 subcuticular Quill and Steri-Strips. Dressings applied with Xeroform, 4 x 4's, ABD, and Medipore tape. Abduction pillow applied. The patient was transferred to the recovery room in satisfactory condition. The patient tolerated the procedure well. TRANSFUSIONS AND COMPLICATIONS: None. POSTOPERATIVE CONDITION: Satisfactory. PROGNOSIS: Good. ESTIMATED BLOOD LOSS: 350 mL. MD CAMPBELL Ibarra/SADAF , 04:15 PM , 04:33 PM
--- NOTE | 2017-07-16 16:54 | RADRPT ---
EXAM DATE: 07/16/2017 4:08 PM EDT AGE/SEX: 71 years / Female INDICATIONS: ORIF of left hip done in the operating room. CLINICAL DATA: This is the patient's initial encounter. Patient reports that signs and symptoms have been present for 1 day and indicates a pain score of Nonresponsive. MEDICAL/SURGICAL HISTORY: . Chronic obstructive pulmonary disease. atrial fibrillation, on bloo d thinners None. COMPARISON: [facility], HIP LEFT (AP&LAT 2/3VWS) W AP PELVIS, 07/14/2017. . FINDINGS: Total hip arthroplasty is present with additional side plate and screws adjacent to the greater tuber osity with excellent anatomical alignment. CONCLUSION: Intact postsurgical changes. Electronically signed by: Rui Boston MD 07/16/2017 4:53 PM EDT
[2017-07-16] MEDS ORDERED: TRANEXAMIC ACID IV SCH (17:00)
[2017-07-16] MEDS ORDERED: SODIUM CHLORIDE 0.9% IV SCH (17:00)
[2017-07-16] MEDS ORDERED: ONDANSETRON ODT 4 MG TAB PO PRN (17:00)
[2017-07-16] MEDS: SODIUM CHLOR 0.9% 1000 ML INJ 1,000 ML IV SCH (17:05)
[2017-07-16] MEDS ORDERED: *morphine SULFATE 10 MG/ML PERIprocedure ONLY ONE (17:21)
--- NOTE | 2017-07-16 17:43 | RADRPT ---
EXAM DATE: 07/16/2017 5:35 PM EDT AGE/SEX: 71 years / Female INDICATIONS: Post OP left hip. CLINICAL DATA: This is the patient's initial encounter. Patient reports that signs and symptoms have been present for 1 day and indicates a pain score of 0/10. MEDICAL/SURGICAL HISTORY: None. None. COMPARISON: [facility] [place], HIP LEFT (AP&LAT 2/3VWS) WO AP PELVIS, 02/09/2012. . FINDINGS: Left total hip arthroplasty is present. A lateral cortical plate with trochanteric claw configuration is also present. Multiple cerclage wires noted. The hardware appears intact. Alignment is anatomic. Adjacent pelvis is intact. There are prominent vascular calcifications noted. Stimulator is present w ith ControlPak over the left iliac crest. CONCLUSION: Satisfactory appearance post left FREDO Electronically signed by: Amrit Gamboa MD 07/16/2017 5:41 PM EDT
[2017-07-16 19:45] VITALS: BP 101/59; PULSE 95; RESP 18; TEMP 97.3; O2SAT 97
[2017-07-16] MEDS: CLINDAMYCIN 600 MG/NS PREMIX 50 ML IV SCH (20:32)
[2017-07-16] MEDS: KETOROLAC TROMETHAMINE 30 MG/ML (IVP) VIAL IVP SCH (20:34)
[2017-07-16] MEDS: ACETAMINOPHEN 1000 MG/100 ML VIAL IV SCH (21:00)
[2017-07-16] MEDS: PCA - TOTAL MG MORPHINE DELIVERED PER SHIFT SCH (22:00)
[2017-07-17] VITALS (12 sets, daily range): BP systolic 97–131; BP diastolic 52–69; PULSE 88–95; RESP 16–18; TEMP 97.3–98.4; O2SAT 96–100
[2017-07-17] MEDS ORDERED: VANCOMYCIN INJ 1 GM in SODIUM CHLOR 0.9% 250 ML INJ 250 ML IV SCH (04:00)
[2017-07-17] MEDS: LEVOTHYROXINE SODIUM 50 MCG TAB PO SCH (04:55)
[2017-07-17] MEDS: CLINDAMYCIN 600 MG/NS PREMIX 50 ML IV SCH ×2 (04:55→13:25)
[2017-07-17] MEDS: KETOROLAC TROMETHAMINE 30 MG/ML (IVP) VIAL IVP SCH ×3 (04:58→21:59)
[2017-07-17 05:55] LABS: BICARBONATE 19.2 MEQ/L (21.0-32.0); CALCIUM 8.1 MG/DL (8.5-10.1); CREATININE 0.88 MG/DL (0.50-1.00)
[2017-07-17] MEDS: PCA - TOTAL MG MORPHINE DELIVERED PER SHIFT SCH ×3 (06:00→22:00)
[2017-07-17 07:48] LABS: HEMATOCRIT 16.4 % (35.0-46.0); HEMOGLOBIN 5.5 GM/DL (11.6-15.3)
[2017-07-17] MEDS: SODIUM CHLOR 0.9% 1000 ML INJ 1,000 ML IV SCH ×3 (08:00→16:00)
[2017-07-17] MEDS ORDERED: SODIUM CHLOR 0.9% 250 ML INJ 250 ML IV ONE (08:30)
[2017-07-17] MEDS: MUPIROCIN 2% OINT 22 GM TUBE TOPICAL SCH ×2 (09:00→22:04)
[2017-07-17] MEDS: LISINOPRIL 20 MG TAB PO SCH (09:25)
[2017-07-17] MEDS: traMADol HCL 50 MG TAB PO PRN ×2 (09:26→22:27)
[2017-07-17] MEDS: METOPROLOL TARTRATE 50 MG TAB PO SCH ×3 (09:26→18:00)
[2017-07-17] MEDS: GABAPENTIN 300 MG CAP PO SCH ×2 (09:26→21:59)
[2017-07-17] MEDS: PANTOPRAZOLE SOD 40 MG DELAYED RELEASE TAB PO SCH (09:26)
[2017-07-17] MEDS: ACETAMINOPHEN 1000 MG/100 ML VIAL IV SCH ×2 (09:35→22:22)
[2017-07-17] MEDS: SODIUM CHLORIDE 0.9% FLUSH 10 ML FLUSH IV FLUSH SCH ×2 (09:36→21:59)
[2017-07-17 10:08] LABS: HEMOGLOBIN 6.6 GM/DL (11.6-15.3)
[2017-07-17 10:09] LABS: HEMATOCRIT 19.5 % (35.0-46.0)
--- NOTE | 2017-07-17 12:57 | HHI.PR ---
Subjective Remarks Patient c/o fatigue Hgb 5.5 this AM Objective Vitals Vital Signs Date Time Temp Pulse Resp B/P (MAP) Pulse Ox O2 Delivery O2 Flow Rate FiO2 07/17/17 12:00 98.3 91 16 116/53 (74) 99 07/17/17 11:20 97.9 89 17 120/58 100 07/17/17 11:05 98.3 91 16 116/53 99 07/17/17 08:00 98.4 88 17 110/64 (79) 99 07/17/17 04:00 97.3 95 18 131/63 (85) 99 07/17/17 00:00 97.3 94 18 97/52 (67) 98 07/16/17 20:52 Nasal Cannula 2.00 07/16/17 19:45 97.3 95 18 101/59 (73) 97 07/16/17 18:30 97.4 93 11 108/62 (77) 99 Room Air 07/16/17 18:00 93 13 112/57 (75) 100 07/16/17 17:30 90 12 132/65 (87) 100 07/16/17 17:15 91 9 163/91 (115) 95 07/16/17 17:05 12 07/16/17 17:00 89 11 137/81 (99) 100 07/16/17 16:45 88 11 138/79 (98) 100 07/16/17 16:30 87 14 125/71 (89) 100 Nasal Cannula 2 07/16/17 16:25 87 14 129/69 (89) 100 Nasal Cannula 2 07/17/17 07/17/17 07/18/17 15:00 23:00 07:00 Intake Total 5 ml Balance 5 ml Blood Product IV Normal Saline Flush 5 ml Result Diagram: 07/17/17 0721 07/17/17 0513 Other Results Laboratory Tests Test 07/15/17 07:03 07/17/17 05:13 07/17/17 07:21 White Blood Count 4.7 TH/MM3 Red Blood Count 2.77 MIL/MM3 Hemoglobin 10.0 GM/DL 6.6 GM/DL 5.5 GM/DL Hematocrit 29.4 % 19.5 % 16.4 % Mean Corpuscular Volume 105.9 FL Mean Corpuscular Hemoglobin 36.2 PG Mean Corpuscular Hemoglobin Concent 34.1 % Red Cell Distribution Width 12.9 % Platelet Count 237 TH/MM3 Mean Platelet Volume 7.4 FL Neutrophils (%) (Auto) 60.5 % Lymphocytes (%) (Auto) 17.4 % Monocytes (%) (Auto) 15.7 % Eosinophils (%) (Auto) 5.3 % Basophils (%) (Auto) 1.1 % Neutrophils # (Auto) 2.8 TH/MM3 Lymphocytes # (Auto) 0.8 TH/MM3 Monocytes # (Auto) 0.7 TH/MM3 Eosinophils # (Auto) 0.2 TH/MM3 Basophils # (Auto) 0.1 TH/MM3 CBC Comment DIFF FINAL Differential Comment Blood Urea Nitrogen 7 MG/DL 14 MG/DL Creatinine 0.56 MG/DL 0.88 MG/DL Random Glucose 95 MG/DL 136 MG/DL Calcium Level 8.8 MG/DL 8.1 MG/DL Sodium Level 132 MEQ/L 134 MEQ/L Potassium Level 4.1 MEQ/L 4.7 MEQ/L Chloride Level 96 MEQ/L 100 MEQ/L Carbon Dioxide Level 27.0 MEQ/L 19.2 MEQ/L Anion Gap 9 MEQ/L 15 MEQ/L Estimat Glomerular Filtration Rate 107 ML/MIN 64 ML/MIN Imaging Last Impressions Hip and Pelvis X-Ray 07/14/17 0000 Signed Impressions: CONCLUSION: Minimally anteriorly displaced fracture involving the greater trochanter with o ne large bone fragment measuring at least 8.6 x 3.6 cm across Chest X-Ray 07/14/17 0000 Signed Impressions: CONCLUSION: Negative examination. Objective Remarks GENERAL: This is a well-nourished, well-developed patient, fatigued appearance CARDIOVASCULAR: Regular rate and rhythm RESPIRATORY: Clear to auscultation. Breath sounds equal bilaterally. GASTROINTESTINAL: Abdomen soft, non-tender, nondistended. Normal active bowel sounds MUSCULOSKELETAL: left lower extremity shortened NEURO: Alert & Oriented. Moves all ext x4 Procedures 07/16/17 Open reduction, internal fixation, periprosthetic fracture left proximal femur using Synthes claw plate with Dr. Patino A/P Problem List: (1) Fracture of greater trochanter of left femur ICD Codes: S72.112A - Displaced fracture of greater trochanter of left femur, initial encounter for closed fracture Status: Acute Plan: - Patient tripped and fell sustained minimally displaced fracture involving the left greater trochanter - Hip and pelvis X ray reviewed reveals: minimally displaced fracture involving the left greater trochanter with one large bone fragment measuring at least 8.6 x 3.6 cm across - Patient has had previous left hip replacement - Consult to Orthopedic surgery, Dr. Patino - S/P Open reduction, internal fixation, periprosthetic fracture left proximal femur using Synthes claw plate with Dr. Patino on 07/16/17 - Flexeril as needed for muscle spasms - continue current pain regiment with Stephan SCDs for DVT prophylaxis Eliquis on hold pre-op continue to hold Eliquis due to anemia (2) Anemia ICD Codes: D64.9 - Anemia, unspecified Plan: Patient with post-op anemia S/P Open reduction, internal fixation, periprosthetic fracture left proximal femur using Synthes claw plate with Dr. Patino on 07/16/17 Hgb this AM 6.6 with repeat 5.5 2 units PRBCs ordered and infusing recheck H&H at 1500 pending continue to monitor closely surgical ESBL 350 ml patient denies evidence of active bleeding recheck CBC in AM (3) Atrial fibrillation ICD Codes: I48.91 - Unspecified atrial fibrillation Plan: Patient has history of atrial fibrillation- currently in SR Eliquis on hold prior to surgery- continue to hold Eliquis due to anemia Continue Metoprolol 50 mg PO BID (4) HTN (hypertension) ICD Codes: I10 - Essential (primary) hypertension Status: Chronic Plan: Continue patient's home metoprolol 50 mg Po BID and Lisinopril 40 mg PO daily BP elevated this AM possibly due to pain, continue current pain regiment and add Flexeril will add clonidine as needed (5) Hyponatremia ICD Codes: E87.1 - Hypo-osmolality and hyponatremia Status: Acute Plan: Patient has chronic hyponatremia Na 130 on admission -> 132 (07/15) -> 134 (07/17) (6) COPD (chronic obstructive pulmonary disease) ICD Codes: J44.9 - Chronic obstructive pulmonary disease, unspecified Status: Chronic Plan: Does not appear to be in acute exacerbation continue patient's home Umeclidinium [place] Duo nebs as needed (7) Hypothyroidism ICD Codes: E03.9 - Hypothyroidism, unspecified Plan: Continue patient's home levothyroxine Assessment and Plan Patient examined. Assessment and plan formulated with Britney Owens PA-C. I agree with the above. Problem Qualifiers (1) Fracture of greater trochanter of left femur: Qualified Codes: S72.112A - Displaced fracture of greater trochanter of left femur, initial encounter for closed fracture (2) Anemia: Britney Owens Jul 17, 2017 12:57 Keenan Hernandez DO Jul 19, 2017 22:35
--- NOTE | 2017-07-17 18:02 | PD.ORT.PN ---
Subjective Post Op Day #: 1 Subjective Remarks doing OK, dangled, Objective Vitals Laboratory Tests Test 07/17/17 05:13 07/17/17 07:21 Hemoglobin 6.6 GM/DL 5.5 GM/DL Hematocrit 19.5 % 16.4 % Blood Urea Nitrogen 14 MG/DL Creatinine 0.88 MG/DL Random Glucose 136 MG/DL Calcium Level 8.1 MG/DL Sodium Level 134 MEQ/L Potassium Level 4.7 MEQ/L Chloride Level 100 MEQ/L Carbon Dioxide Level 19.2 MEQ/L Anion Gap 15 MEQ/L Estimat Glomerular Filtration Rate 64 ML/MIN Last 72 hours Impressions Hip X-Ray 07/16/17 0000 Signed Impressions: CONCLUSION: Satisfactory appearance post left FREDO Hip X-Ray 07/16/17 0000 Signed Impressions: CONCLUSION: Intact postsurgical changes. Vital Signs Date Time Temp Pulse Resp B/P (MAP) Pulse Ox O2 Delivery O2 Flow Rate FiO2 07/17/17 16:00 98.2 90 16 105/55 (72) 98 07/17/17 15:10 98.2 90 17 105/55 98 07/17/17 14:00 17 07/17/17 12:00 98.3 91 16 116/53 (74) 99 07/17/17 11:20 97.9 89 17 120/58 100 07/17/17 11:05 98.3 91 16 116/53 99 07/17/17 08:00 98.4 88 17 110/64 (79) 99 07/17/17 06:00 18 07/17/17 04:00 97.3 95 18 131/63 (85) 99 07/17/17 00:00 97.3 94 18 97/52 (67) 98 07/16/17 20:52 Nasal Cannula 2.00 07/16/17 19:45 97.3 95 18 101/59 (73) 97 07/16/17 18:30 97.4 93 11 108/62 (77) 99 Room Air 07/16/17 18:00 93 13 112/57 (75) 100 I/O 07/16/17 07/16/17 07/16/17 07/17/17 07/17/17 07/17/17 07:00 15:00 23:00 07:00 15:00 23:00 Intake Total 2100 ml 200 ml 365 ml 405 ml Output Total 400 ml 765 ml 250 ml 200 ml Balance -400 ml 1335 ml -50 ml 165 ml 405 ml Intake Oral 0 ml 200 ml 360 ml Packed Cells 400 ml Blood Product IV Normal Saline Flush 5 ml 5 ml Other 2100 ml Output Urine Total 400 ml 550 ml 250 ml 200 ml Drainage Total 15 ml Estimated Blood Loss 200 ml # Bowel Movements 0 0 Result Diagram: 07/17/17 0721 07/17/17 0513 Objective Remarks A, A, and O In bed comfortable. No change left hip, Has drsg left tibia Left knee swollen from OA Dressings left hip clean and dry. Hemovac not draining much Assessment & Plan Ortho Post Op Day #: 1 Problem List: Assessment and Plan Post op ORIF PP fx left femur , greater troch, low H/H, due to blood loss of fx, surgery, dehydration and anemia preop. Doubt anything else starting second unit PRBCs I put her on iron and MVI Tomorrow, DC IV and drain DC thursday hopefully Da Patino MD Jul 17, 2017 18:02
[2017-07-17] MEDS ORDERED: APIXABAN 2.5 MG TABLET PO SCH ×2 (21:00)
[2017-07-17] MEDS: DOCUSATE SODIUM 100 MG CAP PO SCH (21:58)
[2017-07-17] MEDS: MULTIVITAMINS/MINERALS THERAPEUTIC TAB PO SCH (22:02)
[2017-07-17] MEDS: FERROUS FUMARATE 325 MG TAB (106 MG ELEMENTAL IRON) PO SCH (22:02)
[2017-07-18] VITALS (7 sets, daily range): BP systolic 109–166; BP diastolic 55–84; PULSE 90–104; RESP 18; TEMP 97.2–98.1; O2SAT 93–100
[2017-07-18 00:18] LABS: HEMATOCRIT 24.6 % (35.0-46.0); HEMOGLOBIN 8.8 GM/DL (11.6-15.3)
[2017-07-18] MEDS: CYCLOBENZAPRINE HCL 10 MG TAB PO PRN (03:59)
[2017-07-18] MEDS: LEVOTHYROXINE SODIUM 50 MCG TAB PO SCH (05:24)
[2017-07-18] MEDS: KETOROLAC TROMETHAMINE 30 MG/ML (IVP) VIAL IVP SCH ×3 (05:25→21:14)
[2017-07-18] MEDS: PCA - TOTAL MG MORPHINE DELIVERED PER SHIFT SCH ×3 (05:25→22:00)
[2017-07-18 06:27] LABS: AUTOMATED NEUTROPHIL # 4.4 TH/MM3 (1.8-7.7); BASOPHIL # 0.1 TH/MM3 (0-0.2); BASOPHIL % 1.1 % (0.0-2.0); EOSINOPHIL # 0.3 TH/MM3 (0-0.4); HEMATOCRIT 24.7 % (35.0-46.0); HEMOGLOBIN 8.7 GM/DL (11.6-15.3); LYMPH % 13.3 % (9.0-44.0); LYMPHOCYTE # 0.9 TH/MM3 (1.0-4.8); MEAN CELL VOLUME 101.6 FL (80.0-100.0); MEAN CORPUSCULAR HEMOGLOBIN 35.8 PG (27.0-34.0); MEAN CORPUSCULAR HGB CONC 35.2 % (32.0-36.0); MEAN PLATELET VOLUME 7.5 FL (7.0-11.0); MONO % 15.2 % (0.0-8.0); NEUT % 65.4 % (16.0-70.0); PLATELET COUNT 216 TH/MM3 (150-450); RED BLOOD COUNT 2.43 MIL/MM3 (4.00-5.30); RED CELL DISTRIBUTION WIDTH 14.6 % (11.6-17.2); WHITE BLOOD COUNT 6.7 TH/MM3 (4.0-11.0)
[2017-07-18] MEDS: SODIUM CHLOR 0.9% 1000 ML INJ 1,000 ML IV SCH ×3 (08:00→16:00)
[2017-07-18] MEDS: DOCUSATE SODIUM 100 MG CAP PO SCH ×3 (09:00→21:14)
[2017-07-18] MEDS: MUPIROCIN 2% OINT 22 GM TUBE TOPICAL SCH ×2 (09:00→21:00)
[2017-07-18] MEDS: ACETAMINOPHEN 1000 MG/100 ML VIAL IV SCH ×3 (09:00→21:00)
[2017-07-18] MEDS: LISINOPRIL 20 MG TAB PO SCH (09:59)
[2017-07-18] MEDS: PANTOPRAZOLE SOD 40 MG DELAYED RELEASE TAB PO SCH (09:59)
[2017-07-18] MEDS: METOPROLOL TARTRATE 50 MG TAB PO SCH ×3 (09:59→17:49)
[2017-07-18] MEDS: SODIUM CHLORIDE 0.9% FLUSH 10 ML FLUSH IV FLUSH SCH ×2 (10:00→21:00)
[2017-07-18] MEDS: MULTIVITAMINS/MINERALS THERAPEUTIC TAB PO SCH (10:00)
[2017-07-18] MEDS: GABAPENTIN 300 MG CAP PO SCH ×2 (10:00→21:14)
--- NOTE | 2017-07-18 10:07 | PD.ORT.PN ---
Subjective Post Op Day #: 2 Subjective Remarks Patient is up in chair today,no complaints Objective Vitals Vital Signs Date Time Temp Pulse Resp B/P (MAP) Pulse Ox O2 Delivery O2 Flow Rate FiO2 07/18/17 08:00 97.3 95 18 138/63 (88) 93 07/18/17 04:00 98.0 90 18 129/67 (87) 99 07/18/17 00:00 98.1 93 18 109/55 (73) 100 07/17/17 22:00 18 07/17/17 19:50 97.6 91 18 128/59 (82) 96 07/17/17 18:57 98.1 88 18 112/69 98 07/17/17 18:36 97.3 90 17 106/62 96 07/17/17 16:05 90 07/17/17 16:00 98.2 90 16 105/55 (72) 98 07/17/17 15:10 98.2 90 17 105/55 98 07/17/17 14:00 17 07/17/17 12:00 98.3 91 16 116/53 (74) 99 07/17/17 11:20 97.9 89 17 120/58 100 07/17/17 11:05 98.3 91 16 116/53 99 I/O 07/17/17 07/17/17 07/17/17 07/18/17 07/18/17 07/18/17 07:00 15:00 23:00 07:00 15:00 23:00 Intake Total 200 ml 1415 ml 410 ml 640 ml Output Total 250 ml 200 ml 55 ml 450 ml Balance -50 ml 1215 ml 355 ml 190 ml Intake Oral 200 ml 360 ml 640 ml IV Total 1050 ml Packed Cells 400 ml Blood Product IV Normal Saline Flush 5 ml 10 ml Output Urine Total 250 ml 200 ml 450 ml Drainage Total 55 ml # Bowel Movements 0 Result Diagram: 07/18/17 0449 07/17/17 0513 Objective Remarks A, A, and O Comfortable up in chair. Dressing intact left hip. Has compression wraps both lower extremities. Left knee mildly swollen from OA No calf swelling or tenderness. Neurovascular exam distally intact. Assessment & Plan Ortho Post Op Day #: 2 Problem List: Assessment and Plan Post op ORIF PP fx left femur , greater troch, Patient stable post-op day 2. To get PT and is at toe tough weight bearing. I will see mary anne tomorrow and Dr. Patino will see on Thursday. Nguyễn Menjivar MD Jul 18, 2017 10:07
[2017-07-18] MEDS: FERROUS FUMARATE 325 MG TAB (106 MG ELEMENTAL IRON) PO SCH (10:10)
--- NOTE | 2017-07-18 12:48 | HHI.DCPOC ---
Discharge Care Plan Diagnosis: (1) Vanessa-prosthetic fracture of femur following total hip arthroplasty (2) Atrial fibrillation (3) Anemia Goals to Promote Your Health * To prevent worsening of your condition and complications * To maintain your health at the optimal level Directions to Meet Your Goals Take your medications as prescribed Follow your dietary instruction Follow activity as directed Keep your appointments as scheduled Take your immunizations and boosters as scheduled If your symptoms worsen call your PCP, if no PCP go to Urgent Care Center or Emergency Room Smoking is Dangerous to Your Health. Avoid second hand smoke Call the 24-hour hour crisis hotline for domestic abuse at Britney Owens Jul 18, 2017 12:48 Keenan Hernandez DO Jul 19, 2017 22:48
--- NOTE | 2017-07-18 12:54 | HHI.DS ---
Discharge Summary Admission Date Jul 14, 2017 at 14:20 Discharge Date: Jul 19, 2017 Admitting Diagnosis HIP FRACTURE S/P FALL (1) Fracture of greater trochanter of left femur Diagnosis: Principal ICD Codes: S72.112A - Displaced fracture of greater trochanter of left femur, initial encounter for closed fracture Status: Acute (2) Anemia Diagnosis: Principal ICD Codes: D64.9 - Anemia, unspecified (3) Atrial fibrillation Diagnosis: Secondary ICD Codes: I48.91 - Unspecified atrial fibrillation Status: Chronic (4) HTN (hypertension) Diagnosis: Secondary ICD Codes: I10 - Essential (primary) hypertension Status: Chronic (5) Hyponatremia Diagnosis: Principal ICD Codes: E87.1 - Hypo-osmolality and hyponatremia Status: Acute (6) COPD (chronic obstructive pulmonary disease) Diagnosis: Secondary ICD Codes: J44.9 - Chronic obstructive pulmonary disease, unspecified Status: Chronic (7) Hypothyroidism Diagnosis: Secondary ICD Codes: E03.9 - Hypothyroidism, unspecified Consultants Dr. Patino, Orthopedic surgery Procedures 07/16/17 Open reduction, internal fixation, periprosthetic fracture left proximal femur using Synthes claw plate with Dr. Patino CBC/BMP: 07/18/17 0449 07/17/17 0513 Significant Findings Laboratory Tests Test 07/17/17 05:13 07/17/17 07:21 07/17/17 23:46 07/18/17 04:49 Hemoglobin 6.6 GM/DL (11.6-15.3) 5.5 GM/DL (11.6-15.3) 8.8 GM/DL (11.6-15.3) 8.7 GM/DL (11.6-15.3) Hematocrit 19.5 % (35.0-46.0) 16.4 % (35.0-46.0) 24.6 % (35.0-46.0) 24.7 % (35.0-46.0) Random Glucose 136 MG/DL (74-106) Calcium Level 8.1 MG/DL (8.5-10.1) Sodium Level 134 MEQ/L (136-145) Carbon Dioxide Level 19.2 MEQ/L (21.0-32.0) Estimat Glomerular Filtration Rate 64 ML/MIN (>89) Red Blood Count 2.43 MIL/MM3 (4.00-5.30) Mean Corpuscular Volume 101.6 FL (80.0-100.0) Mean Corpuscular Hemoglobin 35.8 PG (27.0-34.0) Monocytes (%) (Auto) 15.2 % (0.0-8.0) Eosinophils (%) (Auto) 5.0 % (0.0-4.0) Lymphocytes # (Auto) 0.9 TH/MM3 (1.0-4.8) Monocytes # (Auto) 1.0 TH/MM3 (0-0.9) Imaging Last Impressions Hip X-Ray 07/16/17 0000 Signed Impressions: CONCLUSION: Satisfactory appearance post left FREDO Hip and Pelvis X-Ray 07/14/17 0000 Signed Impressions: CONCLUSION: Minimally anteriorly displaced fracture involving the greater trochanter with o ne large bone fragment measuring at least 8.6 x 3.6 cm across Chest X-Ray 07/14/17 0000 Signed Impressions: CONCLUSION: Negative examination. PE at Discharge GENERAL: This is a well-nourished, well-developed patient, fatigued appearance CARDIOVASCULAR: Regular rate and rhythm RESPIRATORY: Clear to auscultation. Breath sounds equal bilaterally. GASTROINTESTINAL: Abdomen soft, non-tender, nondistended. Normal active bowel sounds MUSCULOSKELETAL: left lower extremity shortened NEURO: Alert & Oriented. Moves all ext x4 Hospital Course Fracture of greater trochanter of left femur - Patient tripped and fell sustained minimally displaced fracture involving the left greater trochanter - Hip and pelvis X ray reviewed reveals: minimally displaced fracture involving the left greater trochanter with one large bone fragment measuring at least 8.6 x 3.6 cm across - Patient has had previous left hip replacement - Consult to Orthopedic surgery, Dr. Patino - S/P Open reduction, internal fixation, periprosthetic fracture left proximal femur using Synthes claw plate with Dr. Patino on 07/16/17 - Flexeril as needed for muscle spasms - continue current pain regiment with [place] SCDs for DVT prophylaxis Eliquis on hold pre-op continue to hold Eliquis due to anemia Anemia Patient with post-op anemia S/P Open reduction, internal fixation, periprosthetic fracture left proximal femur using Synthes claw plate with Dr. Patino on 07/16/17 (07/17) post-op Hgb this AM 6.6 with repeat 5.5 -> 8.7 (07/18) s/p 2 units PRBCs recheck H&H at 1500 (07/17) 8.8 surgical ESBL 350 ml patient denies evidence of active bleeding recheck CBC in AM Atrial fibrillation Patient has history of atrial fibrillation- currently in SR Eliquis on hold prior to surgery- Eliquis resumed at 2.5 mg BID per orthopedic surgery. Once patient completes the 14 days course of Eliquis at a lower dose per orthopedic surgery recommend she return to Eliquis 5 mg BID Continue Metoprolol 50 mg PO BID HTN (hypertension) Continue patient's home metoprolol 50 mg Po BID and Lisinopril 40 mg PO daily BP elevated this AM possibly due to pain, continue current pain regiment and add Flexeril clonidine as needed Hyponatremia Patient has chronic hyponatremia Na 130 on admission -> 132 (07/15) -> 134 (07/17) COPD (chronic obstructive pulmonary disease) Does not appear to be in acute exacerbation continue patient's home Umeclidinium [place] Duo nebs as needed Hypothyroidism Continue patient's home levothyroxine Pt Condition on Discharge: Stable Discharge Disposition: Discharge to SNF Discharge Instructions DIET: Follow Instructions for: As Tolerated, No Restrictions Activities you can perform: See Additionl Instruction Activities to Avoid: Strenuous Activity, Shower Follow up Referrals: Orthopedics - 2 Weeks with Da Patino MD PCP Follow-up - [address] Meadows New Medications: Apixaban (Eliquis) 2.5 Mg Tab 2.5 MG PO BID for DVT MDD 5 mg for 14 Days, #28 TAB Hydrocodone/Acetaminophen (Hydrocodone-Acetamin 5-325 mg) 5 Mg-325 Mg Tablet 2 TAB PO Q6H PRN for PAIN SCALE 5 TO 10 MDD 8 for 14 Days, #112 TAB Continued Medications: Acetaminophen (Tylenol Extra Strength) 500 Mg Tablet 500 MG PO Q12HR for Pain Management Diazepam (Diazepam) 10 Mg Tab 10 MG PO BID PRN for ANXIETY, TAB 0 Refills Diphenhydramine (Diphenhydramine) 25 Mg Cap 25 MG PO Q12H PRN for ALLERGIES, CAP 0 Refills Furosemide (Lasix) 40 Mg Tab 40 MG PO DAILY, #30 TAB 0 Refills Gabapentin (Gabapentin) 600 Mg Tab 600 MG PO BID, #60 TAB 0 Refills Levothyroxine (Levothyroxine) 50 Mcg Tab 50 MCG PO DAILY for Thyroid, #30 TAB 0 Refills Lisinopril (Lisinopril) 40 Mg Tab 40 MG PO DAILY for Blood Pressure Management, #30 TAB 3 Refills Metoprolol Tartrate (Metoprolol Tartrate) 50 Mg Tab 50 MG PO TID, #60 TAB 0 Refills Pantoprazole (Protonix) 40 Mg Tab 40 MG PO DAILY for Reflux, #30 TAB 0 Refills Potassium Chloride Microencaps (Klor-Con M20) 20 Meq Tab 20 MEQ PO DAILY for Electrolyte Replacement, #30 TAB 0 Refills Umeclidinium [place] Inh (Incruse Ellipta Inh) 0.0625 Mg/Act Inh 62.5 MCG INH DAILY for Treat COPD, #1 INHALER 0 Refills Discontinued Medications: Apixaban (Eliquis) 5 Mg Tab 5 MG PO BID for afib, #60 TAB 3 Refills Additional Information Patient examined. Assessment and plan formulated with Britney Owens PA-C. I agree with the above. Britney Owens Jul 18, 2017 12:54 Keenan Hernandez DO Jul 19, 2017 22:47
--- NOTE | 2017-07-18 16:32 | HHI.PR ---
Subjective Remarks Patient reports feeling much better today after 2 units PRBCs yesterday Objective Vitals Vital Signs Date Time Temp Pulse Resp B/P (MAP) Pulse Ox O2 Delivery O2 Flow Rate FiO2 07/18/17 12:00 97.2 92 18 149/63 (91) 99 07/18/17 09:00 Room Air 07/18/17 08:00 97.3 95 18 138/63 (88) 93 07/18/17 04:00 98.0 90 18 129/67 (87) 99 07/18/17 00:00 98.1 93 18 109/55 (73) 100 07/17/17 22:00 18 07/17/17 19:50 97.6 91 18 128/59 (82) 96 07/17/17 18:57 98.1 88 18 112/69 98 07/17/17 18:36 97.3 90 17 106/62 96 Result Diagram: 07/18/17 0449 07/17/17 0513 Other Results Laboratory Tests Test 07/17/17 05:13 07/17/17 07:21 07/17/17 23:46 07/18/17 04:49 Hemoglobin 6.6 GM/DL 5.5 GM/DL 8.8 GM/DL 8.7 GM/DL Hematocrit 19.5 % 16.4 % 24.6 % 24.7 % Blood Urea Nitrogen 14 MG/DL Creatinine 0.88 MG/DL Random Glucose 136 MG/DL Calcium Level 8.1 MG/DL Sodium Level 134 MEQ/L Potassium Level 4.7 MEQ/L Chloride Level 100 MEQ/L Carbon Dioxide Level 19.2 MEQ/L Anion Gap 15 MEQ/L Estimat Glomerular Filtration Rate 64 ML/MIN White Blood Count 6.7 TH/MM3 Red Blood Count 2.43 MIL/MM3 Mean Corpuscular Volume 101.6 FL Mean Corpuscular Hemoglobin 35.8 PG Mean Corpuscular Hemoglobin Concent 35.2 % Red Cell Distribution Width 14.6 % Platelet Count 216 TH/MM3 Mean Platelet Volume 7.5 FL Neutrophils (%) (Auto) 65.4 % Lymphocytes (%) (Auto) 13.3 % Monocytes (%) (Auto) 15.2 % Eosinophils (%) (Auto) 5.0 % Basophils (%) (Auto) 1.1 % Neutrophils # (Auto) 4.4 TH/MM3 Lymphocytes # (Auto) 0.9 TH/MM3 Monocytes # (Auto) 1.0 TH/MM3 Eosinophils # (Auto) 0.3 TH/MM3 Basophils # (Auto) 0.1 TH/MM3 CBC Comment DIFF FINAL Differential Comment Imaging Last Impressions Hip and Pelvis X-Ray 07/14/17 0000 Signed Impressions: CONCLUSION: Minimally anteriorly displaced fracture involving the greater trochanter with o ne large bone fragment measuring at least 8.6 x 3.6 cm across Chest X-Ray 07/14/17 0000 Signed Impressions: CONCLUSION: Negative examination. Objective Remarks GENERAL: This is a well-nourished, well-developed patient, in no acute distress CARDIOVASCULAR: Regular rate and rhythm RESPIRATORY: Clear to auscultation. Breath sounds equal bilaterally. GASTROINTESTINAL: Abdomen soft, non-tender, nondistended. Normal active bowel sounds MUSCULOSKELETAL: left lower extremity shortened NEURO: Alert & Oriented. Moves all ext x4 Procedures 07/16/17 Open reduction, internal fixation, periprosthetic fracture left proximal femur using Synthes claw plate with Dr. Patino A/P Problem List: (1) Fracture of greater trochanter of left femur ICD Codes: S72.112A - Displaced fracture of greater trochanter of left femur, initial encounter for closed fracture Status: Acute Plan: - Patient tripped and fell sustained minimally displaced fracture involving the left greater trochanter - Hip and pelvis X ray reviewed reveals: minimally displaced fracture involving the left greater trochanter with one large bone fragment measuring at least 8.6 x 3.6 cm across - Patient has had previous left hip replacement - Consult to Orthopedic surgery, Dr. Patino - S/P Open reduction, internal fixation, periprosthetic fracture left proximal femur using Synthes claw plate with Dr. Patino on 07/16/17 - Flexeril as needed for muscle spasms - continue current pain regiment with [place] -Plan to DC to SNF in AM SCDs for DVT prophylaxis (2) Anemia ICD Codes: D64.9 - Anemia, unspecified Plan: Patient with post-op anemia S/P Open reduction, internal fixation, periprosthetic fracture left proximal femur using Synthes claw plate with Dr. Patino on 07/16/17 (07/17) post-op Hgb this AM 6.6 with repeat 5.5 -> 8.7 (07/18) s/p 2 units PRBCs recheck H&H at 1500 (07/17) 8.8 surgical ESBL 350 ml patient denies evidence of active bleeding recheck CBC in AM (3) Atrial fibrillation ICD Codes: I48.91 - Unspecified atrial fibrillation Status: Chronic Plan: Patient has history of atrial fibrillation- currently in SR Eliquis on hold prior to surgery- resume Eliquis at 2.5 mg PO BID per orthopedic surgery Continue Metoprolol 50 mg PO BID (4) HTN (hypertension) ICD Codes: I10 - Essential (primary) hypertension Status: Chronic Plan: Continue patient's home metoprolol 50 mg Po BID and Lisinopril 40 mg PO daily BP elevated this AM possibly due to pain, continue current pain regiment and add Flexeril will add clonidine as needed (5) Hyponatremia ICD Codes: E87.1 - Hypo-osmolality and hyponatremia Status: Acute Plan: Patient has chronic hyponatremia Na 130 on admission -> 132 (07/15) -> 134 (07/17) (6) COPD (chronic obstructive pulmonary disease) ICD Codes: J44.9 - Chronic obstructive pulmonary disease, unspecified Status: Chronic Plan: Does not appear to be in acute exacerbation continue patient's home Umeclidinium [place] Duo nebs as needed (7) Hypothyroidism ICD Codes: E03.9 - Hypothyroidism, unspecified Plan: Continue patient's home levothyroxine Assessment and Plan Patient examined. Assessment and plan formulated with Britney Owens PA-C. I agree with the above. Problem Qualifiers (1) Fracture of greater trochanter of left femur: Qualified Codes: S72.112A - Displaced fracture of greater trochanter of left femur, initial encounter for closed fracture (2) Anemia: (3) Atrial fibrillation: Qualified Codes: I48.2 - Chronic atrial fibrillation (4) HTN (hypertension): Qualified Codes: I10 - Essential (primary) hypertension (5) COPD (chronic obstructive pulmonary disease): Qualified Codes: J44.9 - Chronic obstructive pulmonary disease, unspecified Britney Owens Jul 18, 2017 16:32 Keenan Hernandez DO Jul 19, 2017 22:47
[2017-07-18] MEDS: traMADol HCL 50 MG TAB PO PRN (22:29)
[2017-07-19 00:20] VITALS: BP 152/72; PULSE 92; RESP 18; TEMP 97.9; O2SAT 98
[2017-07-19 04:20] VITALS: BP 164/80; PULSE 93; RESP 18; TEMP 97.9; O2SAT 95
[2017-07-19] MEDS: LEVOTHYROXINE SODIUM 50 MCG TAB PO SCH (05:48)
[2017-07-19] MEDS: KETOROLAC TROMETHAMINE 30 MG/ML (IVP) VIAL IVP SCH ×2 (05:49→13:06)
[2017-07-19] MEDS: PCA - TOTAL MG MORPHINE DELIVERED PER SHIFT SCH ×2 (06:00→13:06)
[2017-07-19 08:00] VITALS: BP 142/70; PULSE 92; RESP 18; TEMP 98; O2SAT 94
[2017-07-19] MEDS: SODIUM CHLOR 0.9% 1000 ML INJ 1,000 ML IV SCH ×2 (08:00)
[2017-07-19] MEDS: DOCUSATE SODIUM 100 MG CAP PO SCH (08:50)
[2017-07-19] MEDS: MULTIVITAMINS/MINERALS THERAPEUTIC TAB PO SCH (08:50)
[2017-07-19] MEDS: LISINOPRIL 20 MG TAB PO SCH (08:50)
[2017-07-19] MEDS: FERROUS FUMARATE 325 MG TAB (106 MG ELEMENTAL IRON) PO SCH (08:51)
[2017-07-19] MEDS: GABAPENTIN 300 MG CAP PO SCH (08:51)
[2017-07-19] MEDS: PANTOPRAZOLE SOD 40 MG DELAYED RELEASE TAB PO SCH (08:52)
[2017-07-19] MEDS: METOPROLOL TARTRATE 50 MG TAB PO SCH ×2 (08:52→13:06)
[2017-07-19] MEDS: SODIUM CHLORIDE 0.9% FLUSH 10 ML FLUSH IV FLUSH SCH (08:53)
[2017-07-19] MEDS: MUPIROCIN 2% OINT 22 GM TUBE TOPICAL SCH (08:53)
[2017-07-19 09:42] LABS: AUTOMATED NEUTROPHIL # 4.3 TH/MM3 (1.8-7.7); BASOPHIL % 0.6 % (0.0-2.0); EOSINOPHIL # 0.3 TH/MM3 (0-0.4); HEMATOCRIT 23.6 % (35.0-46.0); HEMOGLOBIN 8.2 GM/DL (11.6-15.3); LYMPH % 14.6 % (9.0-44.0); MEAN CELL VOLUME 101.9 FL (80.0-100.0); MEAN CORPUSCULAR HEMOGLOBIN 35.5 PG (27.0-34.0); MEAN CORPUSCULAR HGB CONC 34.8 % (32.0-36.0); MEAN PLATELET VOLUME 7.7 FL (7.0-11.0); MONO % 14.9 % (0.0-8.0); NEUT % 64.9 % (16.0-70.0); PLATELET COUNT 240 TH/MM3 (150-450); RED BLOOD COUNT 2.32 MIL/MM3 (4.00-5.30); RED CELL DISTRIBUTION WIDTH 14.2 % (11.6-17.2); WHITE BLOOD COUNT 6.7 TH/MM3 (4.0-11.0)
[2017-07-19 10:01] LABS: CALCIUM 8.4 MG/DL (8.5-10.1); CREATININE 0.64 MG/DL (0.50-1.00); MAGNESIUM 1.6 MG/DL (1.5-2.5)
--- NOTE | 2017-07-19 10:49 | PD.ORT.PN ---
Subjective Post Op Day #: 3 Subjective Remarks Patient is in bed,no complaints. Some discomfort when she is up. Objective Vitals Vital Signs Date Time Temp Pulse Resp B/P (MAP) Pulse Ox O2 Delivery O2 Flow Rate FiO2 07/19/17 04:20 97.9 93 18 164/80 (108) 95 07/19/17 00:20 97.9 92 18 152/72 (98) 98 07/18/17 16:55 97.7 91 18 166/84 (111) 96 07/18/17 16:00 97.8 93 18 148/73 (98) 97 07/18/17 12:00 97.2 92 18 149/63 (91) 99 07/18/17 12:00 94 I/O 07/18/17 07/18/17 07/18/17 07/19/17 07/19/17 07/19/17 07:00 15:00 23:00 07:00 15:00 23:00 Intake Total 640 ml 480 ml 340 ml Output Total 450 ml Balance 190 ml 480 ml 340 ml Intake Oral 640 ml 480 ml 340 ml Output Urine Total 450 ml # Voids 2 2 # Bowel Movements 0 Result Diagram: 07/19/1791807/19/17918 Objective Remarks A, A, and O Dressing intact left hip- has been changed earlier today. Has compression wraps both lower extremities. Left knee with 1 to 2+ effusion. No calf swelling or tenderness. Neurovascular exam distally intact. Assessment & Plan Ortho Post Op Day #: 3 Problem List: Assessment and Plan Post op ORIF PP fx left femur , greater troch, Patient stable post-op day 3. Patient has discharge order to go to SNF today. PT and is at toe tough weight bearing. Follow up with Dr. Patino. Nguyễn Menjivar MD Jul 19, 2017 10:49
[2017-07-19 12:00] VITALS: BP 137/66; PULSE 94; RESP 18; TEMP 97.9; O2SAT 97
== END 2017-07-19 15:58 | DRG 481 ==
LOC: NEPC 09:07 → NEDA 14:20 → N06A 17:35
PROVIDERS: ADMIT Hospitalist; ATTEND Hospitalist
PROC: 0QS704Z Reposition Left Upper Femur with Internal Fixation Device, Open Approach (ICD-10-PCS; 2017-07-16)
PROC: 30233N1 Transfusion of Nonautologous Red Blood Cells into Peripheral Vein, Percutaneous Approach (ICD-10-PCS; principal; 2017-07-17)
DX: S72.112A Displaced fracture of greater trochanter of left femur, initial encounter for closed fracture (principal); E87.1 Hypo-osmolality and hyponatremia; I48.2 Chronic atrial fibrillation; J44.9 Chronic obstructive pulmonary disease, unspecified; D62 Acute posthemorrhagic anemia; I10 Essential (primary) hypertension; E86.0 Dehydration; M97.02XA Periprosthetic fracture around internal prosthetic left hip joint, initial encounter; W01.0XXA Fall on same level from slipping, tripping and stumbling without subsequent striking against object, initial encounter; E78.5 Hyperlipidemia, unspecified; K21.9 Gastro-esophageal reflux disease without esophagitis; E03.9 Hypothyroidism, unspecified; I34.1 Nonrheumatic mitral (valve) prolapse; Z96.89 Presence of other specified functional implants; M25.462 Effusion, left knee; M19.90 Unspecified osteoarthritis, unspecified site; M62.838 Other muscle spasm; M17.12 Unilateral primary osteoarthritis, left knee; Z85.3 Personal history of malignant neoplasm of breast; Z98.84 Bariatric surgery status; Z79.01 Long term (current) use of anticoagulants
CPT/HCPCS: 36430; 71045; 73501; 73502; 76000; 76937; 80048; 83735; 85014; 85018; 85025; 85610; 85730; 86850; 86900; 86901; 86920; 93005; 96374; C1713; C1769; C9290; J0131; J1100; J1170; J1200; J1580; J1885; J2250; J2270; J2370; J2405; J3010; J3370; J7030; J7050; J7120; P9016